=== PATIENT | male | born 1945 | race Caucasian/White ===

== ENCOUNTER 2020-01-21 11:50 | Emergency (ER) | payer OTHER, MEDICARE, SELFPAY ==
[2020-01-21 11:52] VITALS: BP 168/80; PULSE 114; RESP 18; TEMP 36.2; O2SAT 96; BMI 32.8
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
[2020-01-21 14:11] VITALS: BP 131/57; PULSE 84; RESP 16; O2SAT 99
== END 2020-01-21 14:12 | disposition home or self-care (01) ==
PROVIDERS: Emergency Provider Emergency Medicine
DX: S22.31XA Fracture of one rib, right side, initial encounter for closed fracture (principal); W19.XXXA Unspecified fall, initial encounter
CPT/HCPCS: 70450; 71101; 99282

== ENCOUNTER → 2021-09-09 | Outpatient (CLI) | payer MEDICARE, SELFPAY ==
[2021-09-09 10:35] LABS: Absolute Lymphocyte Count 2.76 X10^3/uL (0.83-4.51); Absolute Neutrophil Count 5.2 X10^3/uL (2.0-7.7); Basophil# 0.04 X10^3/uL; Basophil% 0.4 % (0-1); Eosinophil# 0.41 X10^3/uL; Eosinophils% 4.4 % (0-5); Hematocrit 39.1 % (40-54); Hemoglobin 12.9 g/dL (13.0-16.5); Lymphocyte # 2.76 X10^3/ul (0.83-4.51); Lymphocyte % 29.4 % (19-41); Mean Corpuscular Volume 87.9 fL (80-94); Mean Platelet Vol. 10.5 fl (6.2-12.0); Monocyte% 10.6 % (0-10); NRBC Flagged by Analyzer 0 % (0-5); Neutrophil # 5.15 X10^3/uL (2.7-7.7); Neutrophil % 54.8 % (47-70); Platelet Count 296 K/mm3 (150-450); RBC Distribution Width SD 42.2 fl (35.1-43.9); Red Blood Count 4.45 M/mm3 (4.6-6.2); White Blood Count 9.4 K/mm3 (4.4-11.0)
[2021-09-09 10:53] LABS: Hemoglobin A1c 6.9 % (3.8-5.6)
[2021-09-09 11:13] LABS: ALB/GLOB Ratio 1.3 RATIO (0.9-2.4); AST(SGOT) 31 U/L (15-37); Alanine Aminotransfer ALT/SGPT 36 U/L (16-61); Albumin, Serum 4.6 g/dL (3.2-5.0); Alkaline Phosphatase 69 U/L (45-117); Anion Gap 10 (5-15); BUN 21 mg/dL (7-18); BUN/Creat Ratio 21.8 RATIO (10-20); CPK Total, Creatine Kinase 191 U/L (39-308); Calcium,Total 9.6 mg/dL (8.5-10.1); Chloride 100 mmol/L (98-107); Cholesterol 139 mg/dL (200); Creatinine, Serum 0.96 mg/dL (0.70-1.30); EST Glomerular Filtration Rate 81 mL/min (>60); Est Glom Filt Rate - Afr Amer 98 mL/min (>60); Ferritin 92 ng/mL (26-388); Globulin 3.6 g/dL (2.2-4.2); Glucose 111 mg/dL (74-106); High Density Lipoprotein 35 mg/dL; Magnesium 1.9 mg/dL (1.6-2.6); Potassium 3.2 mmol/L (3.5-5.1); Protein, Total 8.2 g/dL (6.4-8.2); Sodium Level 136 mmol/L (136-145); T4 Free Direct 0.91 ng/dL (0.76-1.46); Thyroid Stim Hormone (TSH) 2.06 uIU/mL (0.358-3.74); Triglycerides 253 mg/dL; Very Low Density Lipoprotein 51 mg/dL (5-40)
[2021-09-09 11:14] LABS: Microalbumin,Random Urine 17.3 mg/L (NO RANGE EST.); Microalbumin:Creatinine Ratio 12.5 mg/g CRE (<30 mg/g CRE)
[2021-09-10 08:18] LABS: Thyroid Peroxidase AB < 8 IU/mL (0-34)
[2021-09-10 10:38] LABS: Iron 85 ug/dL (65-175); Iron Binding Capacity,Total 399 ug/dL (250-450); PERCENT IRON SATURATION 21.3 % (15.0-55.0)
[2021-09-10 11:12] LABS: Vitamin B12 284 pg/mL (211-911)
== END | disposition home or self-care (01) ==
PROVIDERS: PCP Family Medicine; Referring Provider Family Medicine; Visit Provider Family Medicine
DX: E11.65 Type 2 diabetes mellitus with hyperglycemia (principal); E04.1 Nontoxic single thyroid nodule; I10 Essential (primary) hypertension; R25.2 Cramp and spasm
CPT/HCPCS: 36415; 80053; 80061; 82043; 82550; 82570; 82607; 82728; 83036; 83540; 83550; 83735; 84439; 84443; 85025; 86376

== ENCOUNTER → 2021-09-18 | Outpatient (CLI) | payer MEDICARE, SELFPAY ==
--- NOTE | 2021-09-18 14:23 | US_ITS ---
STUDY: THYROID ULTRASOUND REASON FOR EXAM: Male, 75 years old. THYROID NODULE TECHNIQUE: Ultrasound evaluation of the thyroid was performed with real-time and static riojas-scale imaging. COMPARISON: None. FINDINGS: RIGHT LOBE: The right lobe of the thyroid gland measures 4.8 x 1.6 x 2.0 cm. There is a homogeneous echotexture. There is a mid pole complex cyst measuring 15 x 14 x 10 mm. LEFT LOBE: The left lobe of the thyroid gland measures 4.4 x 1.9 x 2.3 cm. There is a homogeneous echotexture. Vascular solid mass in the midpole region measuring 2.2 x 1.5 x 1.7 cm with another complex nodule in the mid to lower pole region measuring 2.1 x 0.9 x 0.4 cm ISTHMUS: The isthmus measures 5 mm. The regional lymph nodes are normal. US/Thyroid IMPRESSION: Bilateral thyroid nodules as above. Hypervascular solid nodule in the left thyroid lobe could be ultrasound-guided FNA biopsy target Electronically Signed: Anastacio Chowdhury DO at 23:40 EDT ,
== END | disposition home or self-care (01) ==
PROVIDERS: PCP Family Medicine; Referring Provider Family Medicine; Visit Provider Family Medicine
DX: E04.1 Nontoxic single thyroid nodule (principal)
CPT/HCPCS: 76536

== ENCOUNTER → 2021-10-06 | Outpatient (CLI) | payer MEDICARE, SELFPAY | END | disposition home or self-care (01) | LOC: MFPLAB 09:51 | PROVIDERS: PCP Family Medicine; Referring Provider Family Medicine; Visit Provider Family Medicine | DX: E87.6 Hypokalemia (principal); R25.2 Cramp and spasm | CPT/HCPCS: 36415; 80048 ==

== ENCOUNTER → 2021-10-08 | Outpatient (CLI) | payer MEDICARE, SELFPAY ==
[2021-10-08 10:40] LABS: Anion Gap 7 (5-15); BUN 29 mg/dL (7-18); BUN/Creat Ratio 25.2 RATIO (10-20); Calcium,Total 9.2 mg/dL (8.5-10.1); Chloride 100 mmol/L (98-107); Cholesterol 138 mg/dL (200); Creatinine, Serum 1.15 mg/dL (0.70-1.30); EST Glomerular Filtration Rate 66 mL/min (>60); Est Glom Filt Rate - Afr Amer 80 mL/min (>60); Glucose 125 mg/dL (74-106); High Density Lipoprotein 37 mg/dL; Potassium 3.4 mmol/L (3.5-5.1); Sodium Level 136 mmol/L (136-145); Triglycerides 233 mg/dL; Very Low Density Lipoprotein 47 mg/dL (5-40)
== END | disposition home or self-care (01) ==
LOC: MFPLAB 08:34
PROVIDERS: PCP Family Medicine; Referring Provider Family Medicine; Visit Provider Family Medicine
DX: E87.6 Hypokalemia (principal); E11.65 Type 2 diabetes mellitus with hyperglycemia
CPT/HCPCS: 36415; 80048; 80061

== ENCOUNTER → 2022-04-06 | Outpatient (CLI) | payer MEDICARE, SELFPAY ==
[2022-04-06 12:35] LABS: Absolute Lymphocyte Count 2.48 X10^3/uL (0.83-4.51); Absolute Neutrophil Count 7.1 X10^3/uL (2.0-7.7); Basophil# 0.08 X10^3/uL; Basophil% 0.7 % (0-1); Eosinophil# 0.39 X10^3/uL; Eosinophils% 3.5 % (0-5); Hematocrit 38.5 % (40-54); Hemoglobin 13.1 g/dL (13.0-16.5); Lymphocyte # 2.48 X10^3/ul (0.83-4.51); Lymphocyte % 22.3 % (19-41); Mean Corpuscular Hgb 30.4 pg (27.0-32.0); Mean Corpuscular Volume 89.3 fL (80-94); Mean Platelet Vol. 11.4 fl (6.2-12.0); Monocyte# 1.06 X10^3/uL; Monocyte% 9.5 % (0-10); NRBC Flagged by Analyzer 0 % (0-5); Neutrophil # 7.06 X10^3/uL (2.7-7.7); Neutrophil % 63.7 % (47-70); Platelet Count 300 K/mm3 (150-450); RBC Distribution Width CV 13.1 % (11.6-14.6); RBC Distribution Width SD 43.3 fl (35.1-43.9); Red Blood Count 4.31 M/mm3 (4.6-6.2); White Blood Count 11.1 K/mm3 (4.4-11.0)
[2022-04-06 12:50] LABS: ALB/GLOB Ratio 1.2 RATIO (0.9-2.4); AST(SGOT) 20 U/L (15-37); Alanine Aminotransfer ALT/SGPT 29 U/L (16-61); Albumin, Serum 4.3 g/dL (3.2-5.0); Alkaline Phosphatase 63 U/L (45-117); Anion Gap 10 (5-15); BUN 24 mg/dL (7-18); BUN/Creat Ratio 19.5 RATIO (10-20); Calcium,Total 9.6 mg/dL (8.5-10.1); Chloride 98 mmol/L (98-107); Cholesterol 139 mg/dL (200); Creatinine, Serum 1.23 mg/dL (0.70-1.30); EST Glomerular Filtration Rate 61 mL/min (>60); Est Glom Filt Rate - Afr Amer 74 mL/min (>60); Globulin 3.5 g/dL (2.2-4.2); Glucose 123 mg/dL (74-106); High Density Lipoprotein 34 mg/dL; Potassium 3.8 mmol/L (3.5-5.1); Protein, Total 7.8 g/dL (6.4-8.2); Sodium Level 136 mmol/L (136-145); Triglycerides 242 mg/dL; Very Low Density Lipoprotein 48 mg/dL (5-40)
[2022-04-06 12:53] LABS: Hemoglobin A1c 7.1 % (3.8-5.6)
[2022-04-06 13:14] LABS: Microalbumin,Random Urine 33.7 mg/L (NO RANGE EST.); Microalbumin:Creatinine Ratio 13.2 mg/g CRE (<30 mg/g CRE)
== END | disposition home or self-care (01) ==
LOC: MFPLAB 10:21
PROVIDERS: PCP Family Medicine; Referring Provider Family Medicine; Visit Provider Family Medicine
DX: E11.65 Type 2 diabetes mellitus with hyperglycemia (principal); E11.69 Type 2 diabetes mellitus with other specified complication
CPT/HCPCS: 36415; 80053; 80061; 82043; 82570; 83036; 85025

== ENCOUNTER → 2022-07-15 | Outpatient (CLI) | payer MEDICARE, SELFPAY ==
[2022-07-15 10:27] LABS: Hemoglobin A1c 6.7 % (3.8-5.6)
[2022-07-15 10:36] LABS: ALB/GLOB Ratio 1.1 RATIO (0.9-2.4); AST(SGOT) 29 U/L (15-37); Alanine Aminotransfer ALT/SGPT 33 U/L (16-61); Albumin, Serum 4.2 g/dL (3.2-5.0); Alkaline Phosphatase 60 U/L (45-117); Anion Gap 5 (5-15); BUN 21 mg/dL (7-18); BUN/Creat Ratio 21.8 RATIO (10-20); Calcium,Total 9.2 mg/dL (8.5-10.1); Chloride 98 mmol/L (98-107); Cholesterol 134 mg/dL (200); Creatinine, Serum 0.96 mg/dL (0.70-1.30); EST Glomerular Filtration Rate 81 mL/min (>60); Est Glom Filt Rate - Afr Amer 98 mL/min (>60); Globulin 3.9 g/dL (2.2-4.2); Glucose 76 mg/dL (74-106); High Density Lipoprotein 36 mg/dL; Potassium 3.1 mmol/L (3.5-5.1); Protein, Total 8.1 g/dL (6.4-8.2); Sodium Level 135 mmol/L (136-145); Triglycerides 208 mg/dL; Very Low Density Lipoprotein 42 mg/dL (5-40)
== END | disposition home or self-care (01) ==
LOC: MTLAB 07:28
PROVIDERS: PCP Family Medicine; Referring Provider Nurse Practitioner Family; Visit Provider Nurse Practitioner Family
DX: E11.59 Type 2 diabetes mellitus with other circulatory complications (principal)
CPT/HCPCS: 36415; 80053; 80061; 83036

== ENCOUNTER → 2022-07-28 | Outpatient (CLI) | payer MEDICARE, SELFPAY ==
[2022-07-28 11:10] LABS: ALB/GLOB Ratio 1.1 RATIO (0.9-2.4); AST(SGOT) 28 U/L (15-37); Alanine Aminotransfer ALT/SGPT 34 U/L (16-61); Albumin, Serum 4.2 g/dL (3.2-5.0); Alkaline Phosphatase 66 U/L (45-117); Anion Gap 5 (5-15); BUN 23 mg/dL (7-18); BUN/Creat Ratio 21.7 RATIO (10-20); Calcium,Total 9.5 mg/dL (8.5-10.1); Chloride 100 mmol/L (98-107); Creatinine, Serum 1.06 mg/dL (0.70-1.30); EST Glomerular Filtration Rate 73 mL/min (>60); Est Glom Filt Rate - Afr Amer 88 mL/min (>60); Globulin 3.9 g/dL (2.2-4.2); Glucose 111 mg/dL (74-106); PSA,Total - Annual Screen 6.85 ng/mL (0.00-4.00); Potassium 3.8 mmol/L (3.5-5.1); Protein, Total 8.1 g/dL (6.4-8.2); Sodium Level 133 mmol/L (136-145)
== END | disposition home or self-care (01) ==
LOC: MFPLAB 08:03
PROVIDERS: PCP Family Medicine; Visit Provider Nurse Practitioner Family
DX: E87.6 Hypokalemia (principal); Z12.5 Encounter for screening for malignant neoplasm of prostate
CPT/HCPCS: 36415; 80053; 84153; G0103

== ENCOUNTER → 2022-08-17 | Outpatient (CLI) | payer MEDICARE, SELFPAY ==
[2022-08-17 11:13] LABS: AST(SGOT) 22 U/L (15-37); Alanine Aminotransfer ALT/SGPT 31 U/L (16-61); Alkaline Phosphatase 74 U/L (45-117); Anion Gap 8 (5-15); BUN 15 mg/dL (7-18); BUN/Creat Ratio 16.2 RATIO (10-20); Calcium,Total 9.2 mg/dL (8.5-10.1); Chloride 100 mmol/L (98-107); Creatinine, Serum 0.92 mg/dL (0.70-1.30); EST Glomerular Filtration Rate 85 mL/min (>60); Est Glom Filt Rate - Afr Amer 103 mL/min (>60); Globulin 3.9 g/dL (2.2-4.2); Glucose 157 mg/dL (74-106); Potassium 3.5 mmol/L (3.5-5.1); Protein, Total 7.9 g/dL (6.4-8.2); Sodium Level 135 mmol/L (136-145)
== END | disposition home or self-care (01) ==
LOC: MTLAB 09:23
PROVIDERS: PCP Family Medicine; Referring Provider Nurse Practitioner Family; Visit Provider Nurse Practitioner Family
DX: R79.9 Abnormal finding of blood chemistry, unspecified (principal)
CPT/HCPCS: 36415; 80053

== ENCOUNTER → 2022-11-18 | Outpatient (CLI) | payer MEDICARE, SELFPAY ==
[2022-11-18 12:11] LABS: Absolute Lymphocyte Count 2.79 X10^3/uL (0.83-4.51); Absolute Neutrophil Count 4.8 X10^3/uL (2.0-7.7); Basophil# 0.08 X10^3/uL; Basophil% 0.9 % (0-1); Eosinophil# 0.43 X10^3/uL; Eosinophils% 4.7 % (0-5); Hematocrit 39.4 % (40-54); Hemoglobin 12.7 g/dL (13.0-16.5); Lymphocyte # 2.79 X10^3/ul (0.83-4.51); Lymphocyte % 30.8 % (19-41); Mean Corp Hgb Conc 32.2 g/dL (32-36); Mean Corpuscular Hgb 28.9 pg (27.0-32.0); Mean Corpuscular Volume 89.5 fL (80-94); Mean Platelet Vol. 11.1 fl (6.2-12.0); Monocyte# 0.91 X10^3/uL; NRBC Flagged by Analyzer 0 % (0-5); Neutrophil # 4.83 X10^3/uL (2.7-7.7); Neutrophil % 53.3 % (47-70); Platelet Count 296 K/mm3 (150-450); RBC Distribution Width CV 12.9 % (11.6-14.6); RBC Distribution Width SD 42.5 fl (35.1-43.9); White Blood Count 9.1 K/mm3 (4.4-11.0)
[2022-11-18 12:53] LABS: Hemoglobin A1c 6.8 % (3.8-5.6)
[2022-11-18 13:06] LABS: AST(SGOT) 24 U/L (15-37); Alanine Aminotransfer ALT/SGPT 27 U/L (16-61); Albumin, Serum 3.9 g/dL (3.2-5.0); Alkaline Phosphatase 70 U/L (45-117); Anion Gap 8 (5-15); BUN 22 mg/dL (7-18); BUN/Creat Ratio 22.4 RATIO (10-20); Calcium,Total 9.5 mg/dL (8.5-10.1); Chloride 101 mmol/L (98-107); Cholesterol 112 mg/dL (200); Creatinine, Serum 0.98 mg/dL (0.70-1.30); EST Glomerular Filtration Rate 79 mL/min (>60); Est Glom Filt Rate - Afr Amer 95 mL/min (>60); Globulin 3.9 g/dL (2.2-4.2); Glucose 88 mg/dL (74-106); High Density Lipoprotein 39 mg/dL; Potassium 3.7 mmol/L (3.5-5.1); Protein, Total 7.8 g/dL (6.4-8.2); Sodium Level 136 mmol/L (136-145); T4 Free Direct 0.95 ng/dL (0.76-1.46); Thyroid Stim Hormone (TSH) 1.85 uIU/mL (0.358-3.74); Triglycerides 203 mg/dL; Very Low Density Lipoprotein 41 mg/dL (5-40)
[2022-11-18 13:19] LABS: Microalbumin,Random Urine 13.1 mg/L (NO RANGE EST.); Microalbumin:Creatinine Ratio 7.7 mg/g CRE (<30 mg/g CRE)
[2022-11-19 15:31] LABS: Ferritin 69 ng/mL (26-388); Iron 60 ug/dL (65-175); Iron Binding Capacity,Total 388 ug/dL (250-450); PERCENT IRON SATURATION 15.5 % (15.0-55.0)
[2022-11-19 16:27] LABS: Vitamin B12 281 pg/mL (211-911)
== END | disposition home or self-care (01) ==
LOC: MFPLAB 10:08
PROVIDERS: PCP Family Medicine; Visit Provider Family Medicine
DX: E11.65 Type 2 diabetes mellitus with hyperglycemia (principal); E04.1 Nontoxic single thyroid nodule; D64.9 Anemia, unspecified
CPT/HCPCS: 36415; 80053; 80061; 82043; 82570; 82607; 82728; 83036; 83540; 83550; 84439; 84443; 85025

== ENCOUNTER → 2022-11-30 | Outpatient (CLI) | payer MEDICARE, SELFPAY | END | disposition home or self-care (01) | LOC: LAB 11:44 | PROVIDERS: PCP Family Medicine; Referring Provider Urology; Visit Provider Urology | DX: R97.20 Elevated prostate specific antigen [PSA] (principal) | CPT/HCPCS: 36415; 84153 ==

== ENCOUNTER → 2022-12-08 | Outpatient (CLI) | payer MEDICARE, SELFPAY ==
--- NOTE | 2022-12-08 08:35 | MRI_ITS ---
STUDY: MR PELVIS WITH AND WITHOUT CONTRAST (PROSTATE) REASON FOR EXAM: Male, 77 years old. Elevated PSA TECHNIQUE: Standardized multiparametric prostate MRI with T1, T2, DWI/ADC sequences were obtained in 3 orthogonal planes, and dynamic contrast enhancement sequences. 13 ml of clariscan contrast material was administered intravenously for the contrast portion of the examination. COMPARISON: None. FINDINGS: The prostate volume measures 76 mm3. The contours of the prostate gland are lobulated. There is mass effect on the bladder base. The transition zone is heterogenous. PI-RADS DWI score 2 - Hypointense within a BPH nodule on ADC. PI-RADS T2W score 3 - Heterogeneous signal intensity with obscured margins. Contrast enhancement no early or contemporaneous enhancement; or diffuse multifocal enhancement NOT corresponding to a focal finding on T2W and/or DWI or focal ehancement responding to a lesion demonstrating features of BPH onT2WI (including features of extruded BPH in the PZ). The peripheral zone is homogenous. PI-RADS DWI score 2 - Linear/wedge shaped hypointense on ADC and/or linear/wedge shaped hyperintense on high b-value DWI. PI-RADS T2W score 2 - Linear, wedge-shaped, or diffuse mild hypointensity, usually with indistinct margin. Contrast enhancement no early or contemporaneous enhancement; or diffuse multifocal enhancement NOT corresponding to a focal finding on T2W and/or DWI or focal enhancement responding to a lesion demonstrating features of BPH onT2WI (including features of extruded BPH in the PZ). The seminal vesicles demonstrate normal margins and T2 signal pattern. No mass lesion or invasion depicted. The rectoprostatic angles are normal. Urinary bladder is normal without wall thickening. The vascular structures of the are normal. The visualized hollow viscus structures are normal. No bone marrow edema or mass lesion depicted. MRI/Pelvis W/WO Contrast IMPRESSION: 1. PIRADS v2.1 2019 -- 2 - Low (clinically significant cancer is unlikely). 2. Prostatomegaly with multiple transitional zone nodules, which could obscure clinically significant lesion. Electronically Signed: Daquan Wilcox (Brooks), at 15:43 EDT ,
== END | disposition home or self-care (01) ==
PROVIDERS: PCP Family Medicine; Referring Provider Urology; Visit Provider Urology
DX: R97.20 Elevated prostate specific antigen [PSA] (principal)
CPT/HCPCS: 72197; A9575

== ENCOUNTER 2023-01-12 14:40 | Emergency (ER) | payer MEDICARE, SELFPAY ==
[2023-01-12] VITALS (9 sets, daily range): BP systolic 131–144; BP diastolic 56–76; PULSE 65–98; RESP 16–22; TEMP 36.1; O2SAT 91–92; BMI 33.9
--- NOTE | 2023-01-12 15:01 | NURSING ---
NO OLD EKG
[2023-01-12] MEDS: Albuterol 2.5 MG/3 ML VIAL.NEB. INHALATION ×2 (15:04→17:24)
[2023-01-12] MEDS: Ipratropium/Albuterol Sulfate 3 ML AMPUL.NEB INHALATION (15:04)
--- NOTE | 2023-01-12 15:16 | EDS_ITS ---
HPI History of Present Illness Chief Complaint: Shortness of Breath Informant: patient and spouse/S.O. Narrative Narrative: Presents with dyspnea and wheezing. This patient does have a history of COPD. He has never had heart disease congestive heart failure stents or ID. Patient states that this year he has been coughing a little bit more than is his normal. But he generally has been able to walk about 75 yards at a time. He notices over the last 2 hours 3 days he has had more coughing. He brings up a little bit of brown sputum but is not really different than normal. No blood has been seen. He has been wheezing. Yesterday was the first time he used his nebulizer a long time. It sounds like he likely has albuterol for it. He states it helped a lot and he did feel much better. But today its not as effective. He notices wheezing and rattling throughout the night. Last night he had a little bit of chest discomfort in his left chest but was coughing a bit. He has no chest pain now. He has never had a PE or DVT. He has no leg pain. He always has trace leg swelling but that is chronic. He was convinced by his to come in as he really did not want to. He is not on oxygen and never has been. He has no fevers or chills and does not feel systemically ill. [facility] Home Medications albuterol sulfate 2.5 mg/3 mL (0.083 %) solution for nebulization 2.5 mg (3 mL) inhalation Q4H PRN #25 vials 01/12/23 [Rx Last Taken Unknown] ipratropium bromide 0.02 % solution for inhalation 2.5 ml inhalation Q6H PRN shortness of breath or wheezing #62.5 mL 01/12/23 [Rx Last Taken Unknown] levofloxacin 500 mg tablet 500 mg PO DAILY #7 tabs 01/12/23 [Rx Last Taken Unknown] prednisone 20 mg tablet 60 mg (3 x 20 mg) PO DAILY #15 TABLETS 01/12/23 [Rx Last Taken Unknown] Allergy/AdvReac Type Severity Reaction Status Date / Time lisinopril Allergy NEEDS Verified 01/21/20 11:54 FOLLOW-UP Social History Smoking Status: Former smoker ROS ROS ED ROS Narrative A complete review of systems was performed and is negative except as documented in the history of present illness. Some specific details below. Constitutional: No recent fevers or chills. Malaise. EYE: No discharge, visual complaints, or pain. ENT: No difficulty swallowing. No swelling. No pain. No reflux symptoms. CV: Chest pain at this time. Had a little bit of soreness yesterday in the anterior left area. No palpitations. No syncope or presyncope. Respiratory: See history of present illness. GI: No abdominal pain. No nausea vomiting diarrhea. No blood in stool. : No frequency dysuria or hematuria. Musculoskeletal: No recent trauma. No pains. No swelling. Skin: No rash. Nondiaphoretic. Neuro: No weakness or numbness. Endocrine: No polyuria or polydipsia. EXAM Physical Exam Narrative Exam Narrative: CONSTITUTIONAL: Patient is nontoxic in appearance. The patient looks comfortable. Work of breathing looks normal. HEENT: No notable trauma. Mucous membranes moist. No sinus tenderness. No indication of pain with swallowing. EYES: No conjunctival injection. No proptosis. NECK:No JVD. No stridor. CARDIOVASCULAR: Regular rate. Regular rhythm. No notable murmur. No JVD. RESPIRATORY: No respiratory distress. But I can hear wheezing when I walk in the room. They are diffuse. He also has some dry crackles throughout. Breath sounds are equal though. No subcu air. No tenderness. Saturations are borderline at about 91% on room air on the monitor. GASTROINTESTINAL: Not distended. Bowel sounds are normal. No tenderness. No guarding. No rebound. No palpable mass. No bruit is heard. GENITOURINARY: No tenderness over the bladder. No CVA tenderness. MUSCULOSKELETAL: Atraumatic. Equal peripheral edema. No cord. No tenderness along the deep venous system. No asymmetry. No distended veins. NEUROLOGICAL: Patient is alert and appropriate. No focal deficit noted. SKIN: No noted rashes. No diaphoresis. PSYCHIATRIC: Patient is calm. Mood is appropriate. Const Vital Signs: 01/12/23 14:41 01/12/23 15:12 01/12/23 17:25 Temperature 96.9 F L Temperature Source Temporal Pulse Rate 98 65 90 Respiratory Rate 22 H 18 16 Respiratory Effort Respiratory Depth Respiratory Pattern Normal Blood Pressure 144/76 H Blood Pressure Mean 98 Pulse Ox 91 Oxygen Delivery Method Room Air 01/12/23 14:56 01/12/23 14:40 01/12/23 15:40 Temperature Temperature Source Pulse Rate Respiratory Rate 20 H 18 Respiratory Effort Respiratory Depth Respiratory Pattern Blood Pressure Blood Pressure Mean Pulse Ox Oxygen Delivery Method Room Air 01/12/23 16:40 01/12/23 17:30 01/12/23 17:00 Temperature Temperature Source Pulse Rate Respiratory Rate 18 20 H Respiratory Effort Normal Non-Labored Respiratory Depth Normal Respiratory Pattern Normal Blood Pressure Blood Pressure Mean Pulse Ox Oxygen Delivery Method Room Air MDM MDM MDM Narrative Medical decision making narrative: My independent interpretation of his x-ray does not show a left hemidiaphragm elevation increased markings at both bases possibly infiltrative. This is similar to final reading but they also suspect there could be a cavitary lesion on the right. We will add a CT for this. CBC shows elevated white count of 15.9. Just mild anemia. Platelets are normal. Patient's electrolytes show no marked abnormalities. Patient's troponin is negative. Patient's BNP is normal. Patient was rechecked. He is feeling a lot better. He actually walked all the way down to the heart and back without any problems. He went to the bathroom. He states this is something he could have done before he came in. I listen to his lungs again. He still has some wheezing but is better. We will get him another breathing treatment here. My independent her potation the CT of his chest does not show any PE. I do not see cavitary lesions. Final reading was also reviewed as below. With the pneumonitis and white count we will treat with antibiotics. I will give short course of steroids. We will write for some albuterol and Atrovent for home use. He does have a nebulizer. Lab Data Attestation: I reviewed the patient's lab results. Labs: Laboratory Results - last 24 hr 01/12/23 15:15 WBC 15.9 H RBC 4.18 L Hgb 12.3 L Hct 36.7 L MCV 87.8 MCH 29.4 MCHC 33.5 RDW Std Deviation 42.6 RDW Coeff of Khadra 13.2 Plt Count 253 MPV 10.2 Immature Gran % (Auto) 0.400 Neut % (Auto) 74.9 H Lymph % (Auto) 12.2 L [place] % (Auto) 10.2 H Eos % (Auto) 1.9 Baso % (Auto) 0.4 Absolute Neuts (auto) 11.9 H Absolute Lymphs (auto) 1.95 Nucleated RBC % 0 Differential Comment SCANNED Diff Path Review May foll Sodium 135 L Potassium 3.4 L Chloride 101 Carbon Dioxide 29.0 Anion Gap 5 BUN 30 H Creatinine 1.16 Estim Creat Clear Calc 47.86 Est GFR (MDRD) Af Amer 79 Est GFR (MDRD) Non-Af 65 BUN/Creatinine Ratio 25.9 H Glucose 99 Calcium 9.0 Troponin I High Sens 8 B-Natriuretic Peptide 7.1 Radiography Diagnostic Testing: Clinical Impression(s) from Imaging Studies Chest X-Ray 01/12/23 15:35 IMPRESSION: Bilateral basilar atelectasis versus infiltrates. Question cavitary lesion in the right lung base, possible right middle lobe, recommend follow-up with CT chest for further characterization. Electronically Signed: Angela Krishna MD at 16:49 EDT , Chest CTA 01/12/23 17:30 IMPRESSION: Negative CTA chest examination, without a demonstrated pulmonary embolism or arterial dissection. Focal aneurysmal dilatation at the level of aortic arch measuring up to 3.2 cm. Bilateral atelectasis in the lung bases with superimposed multifocal pneumonitis. Electronically Signed: Angela Krishna MD at 18:02 EDT , Discharge Plan Triage Chief Complaint: Shortness of Breath ED Provider: Darius Petersen Dx/Rx/DC Orders Clinical Impression: Leukocytosis, COPD exacerbation, Pneumonitis Instructions: ED COPD Flare Prescriptions: New albuterol sulfate 2.5 mg /3 mL (0.083 %) solution for nebulization 2.5 mg inhalation Q4H PRN Qty: 25 0RF Rx Instructions: Use q4 hours and PRN for wheezing levofloxacin [levofloxacin] 500 mg tablet 500 mg PO DAILY Qty: 7 0RF prednisone 20 mg tablet 60 mg PO DAILY Qty: 15 0RF ipratropium bromide 0.02 % solution 2.5 ml inhalation Q6H PRN (Reason: shortness of breath or wheezing) Qty: 62.5 0RF Primary Care Provider: Aj Mata Referrals: Aj Mata MD [Primary Care Provider] - 3-5 Days if not improving Disposition Disposition: Home, Self Care
[2023-01-12 15:23] LABS: Absolute Lymphocyte Count 1.95 X10^3/uL (0.83-4.51); Absolute Neutrophil Count 11.9 X10^3/uL (2.0-7.7); Basophil# 0.07 X10^3/uL; Basophil% 0.4 % (0-1); Eosinophils% 1.9 % (0-5); Hematocrit 36.7 % (40-54); Hemoglobin 12.3 g/dL (13.0-16.5); Lymphocyte # 1.95 X10^3/ul (0.83-4.51); Lymphocyte % 12.2 % (19-41); Mean Corp Hgb Conc 33.5 g/dL (32-36); Mean Corpuscular Hgb 29.4 pg (27.0-32.0); Mean Corpuscular Volume 87.8 fL (80-94); Mean Platelet Vol. 10.2 fl (6.2-12.0); Monocyte# 1.62 X10^3/uL; Monocyte% 10.2 % (0-10); NRBC Flagged by Analyzer 0 % (0-5); Neutrophil # 11.93 X10^3/uL (2.7-7.7); Neutrophil % 74.9 % (47-70); POSITIVE DIFFERENTIAL YES; Platelet Count 253 K/mm3 (150-450); RBC Distribution Width CV 13.2 % (11.6-14.6); RBC Distribution Width SD 42.6 fl (35.1-43.9); Red Blood Count 4.18 M/mm3 (4.6-6.2); White Blood Count 15.9 K/mm3 (4.4-11.0)
[2023-01-12 15:27] LABS: Differential Indicated SCAN CRITERIA MET
[2023-01-12 15:29] LABS: Differential Comment SCANNED
[2023-01-12] MEDS: MethylPREDNISolone 125 MG/2 ML Vial IV (15:33)
--- NOTE | 2023-01-12 15:35 | RAD_ITS ---
STUDY: X-RAY CHEST REASON FOR EXAM: Male, 77 years old. cough TECHNIQUE: PA and lateral views of the chest. COMPARISON: None. FINDINGS: Lungs are underexpanded with bilateral basilar opacities most compatible with atelectasis versus infiltrate. More focal density with possible cavitary component in the right lung bases not excluded. There is no demonstrated pleural abnormality. Normal size heart. Normal mediastinum and xochilt. Normal visualized pulmonary arteries. There is atherosclerotic calcification of the aortic arch with tortuosity. There are diffuse degenerative changes of the visualized thoracic spine. There is degenerative osteoarthritis of the bilateral shoulders. There is no demonstrated abnormality of the visualized soft tissue structures of the upper abdomen. RAD/Chest PA and Lateral IMPRESSION: Bilateral basilar atelectasis versus infiltrates. Question cavitary lesion in the right lung base, possible right middle lobe, recommend follow-up with CT chest for further characterization. Electronically Signed: Angela Krishna MD at 16:49 EDT ,
[2023-01-12 15:47] LABS: BNP,B-Type NATRIURETIC PEPTIDE 7.1 pg/mL (0-100)
[2023-01-12 15:55] LABS: Anion Gap 5 (5-15); BUN 30 mg/dL (7-18); BUN/Creat Ratio 25.9 RATIO (10-20); Chloride 101 mmol/L (98-107); Creatinine, Serum 1.16 mg/dL (0.70-1.30); EST Glomerular Filtration Rate 65 mL/min (>60); Est Glom Filt Rate - Afr Amer 79 mL/min (>60); Estimated Creatinine Clearance 47.86 ml/min; Glucose 99 mg/dL (74-106); Potassium 3.4 mmol/L (3.5-5.1); Sodium Level 135 mmol/L (136-145); Troponin-I HS 8 pg/mL (3.0-78.0)
--- NOTE | 2023-01-12 17:30 | CT_ITS ---
STUDY: CTA CHEST REASON FOR EXAM: Male, 77 years old. pe RADIATION DOSAGE (If Supplied By Facility): CTDIvol = ( 14.39 ) mGy, DLP = ( 539.65 ) mGycm TECHNIQUE: The examination was performed with the intravenous administration of 100ML ISOVUE 370. Post-processing of the angiographic images was performed, with multiplanar reformation and 3D reconstruction. Individualized dose optimization techniques were used for this CT. COMPARISON: None. FINDINGS: Normal enhancement of the main pulmonary artery and right and left pulmonary arteries. Normal enhancement of the bilateral peripheral pulmonary arteries. There is no demonstrated pulmonary embolism. Calcified atherosclerotic disease of aorta with focal aneurysmal dilatation at the level of aortic arch up to 3.2 cm There is no demonstrated aortic dissection. Mild cardiomegaly with coronary artery calcifications. Normal mediastinum. Normal hilar regions. Normal visualized trachea and bronchi. The lungs are underexpanded with vascular crowding. There is bilateral basilar atelectasis including the lingular lobe and bilateral lower lobes. Multiple foci of groundglass opacities within the lung bases suggests superimposed multifocal pneumonitis. Left lower lobe calcified granuloma measuring 6.4 mm. Normal pleura. Normal chest wall structures. There are degenerative changes of thoracic spine. Upper abdomen reveal mild hypertrophy of the bilateral adrenal glands, otherwise unremarkable. CT/CTA Chest W/WO Contrast IMPRESSION: Negative CTA chest examination, without a demonstrated pulmonary embolism or arterial dissection. Focal aneurysmal dilatation at the level of aortic arch measuring up to 3.2 cm. Bilateral atelectasis in the lung bases with superimposed multifocal pneumonitis. Electronically Signed: Angela Krishna MD at 18:02 EDT ,
[2023-01-13 11:19] LABS: Pathologist Review Reviewed
== END 2023-01-12 20:21 | disposition home or self-care (01) ==
PROVIDERS: Emergency Provider Emergency Medicine; PCP Family Medicine; Visit Provider Emergency Medicine
DX: D72.829 Elevated white blood cell count, unspecified (principal); J44.1 Chronic obstructive pulmonary disease with (acute) exacerbation; J18.9 Pneumonia, unspecified organism; Z87.891 Personal history of nicotine dependence
CPT/HCPCS: 71046; 71275; 80048; 83880; 84484; 85025; 93005; 94640; 96374; 99284; Q9967; A4216

== ENCOUNTER → 2023-03-17 | Outpatient (CLI) | payer MEDICARE, SELFPAY ==
[2023-03-17 10:11] LABS: Absolute Lymphocyte Count 2.14 X10^3/uL (0.83-4.51); Absolute Neutrophil Count 4.1 X10^3/uL (2.0-7.7); Basophil# 0.08 X10^3/uL; Basophil% 1.1 % (0-1); Eosinophil# 0.39 X10^3/uL; Eosinophils% 5.2 % (0-5); Hematocrit 38.8 % (40-54); Hemoglobin 12.7 g/dL (13.0-16.5); Lymphocyte # 2.14 X10^3/ul (0.83-4.51); Lymphocyte % 28.6 % (19-41); Mean Corp Hgb Conc 32.7 g/dL (32-36); Mean Corpuscular Hgb 29.1 pg (27.0-32.0); Mean Corpuscular Volume 88.8 fL (80-94); Mean Platelet Vol. 10.9 fl (6.2-12.0); Monocyte# 0.78 X10^3/uL; Monocyte% 10.4 % (0-10); NRBC Flagged by Analyzer 0 % (0-5); Neutrophil # 4.08 X10^3/uL (2.7-7.7); Neutrophil % 54.6 % (47-70); Platelet Count 294 K/mm3 (150-450); RBC Distribution Width CV 13.2 % (11.6-14.6); RBC Distribution Width SD 43.3 fl (35.1-43.9); Red Blood Count 4.37 M/mm3 (4.6-6.2); White Blood Count 7.5 K/mm3 (4.4-11.0)
[2023-03-17 11:00] LABS: ALB/GLOB Ratio 1.1 RATIO (0.9-2.4); AST(SGOT) 20 U/L (15-37); Alanine Aminotransfer ALT/SGPT 29 U/L (16-61); Alkaline Phosphatase 54 U/L (45-117); Anion Gap 10 (5-15); BUN 18 mg/dL (7-18); BUN/Creat Ratio 16.1 RATIO (10-20); Calcium,Total 9.1 mg/dL (8.5-10.1); Chloride 97 mmol/L (98-107); Cholesterol 100 mg/dL (200); Creatinine, Serum 1.12 mg/dL (0.70-1.30); EST Glomerular Filtration Rate 68 mL/min (>60); Est Glom Filt Rate - Afr Amer 82 mL/min (>60); Globulin 3.5 g/dL (2.2-4.2); Glucose 103 mg/dL (74-106); High Density Lipoprotein 39 mg/dL; Potassium 3.5 mmol/L (3.5-5.1); Protein, Total 7.5 g/dL (6.4-8.2); Sodium Level 136 mmol/L (136-145); Triglycerides 143 mg/dL; Very Low Density Lipoprotein 29 mg/dL (5-40)
== END | disposition home or self-care (01) ==
LOC: MTLAB 09:20
PROVIDERS: PCP Family Medicine; Referring Provider Family Medicine; Visit Provider Family Medicine
DX: E11.65 Type 2 diabetes mellitus with hyperglycemia (principal)
CPT/HCPCS: 36415; 80053; 80061; 83036; 85025

== ENCOUNTER → 2023-05-31 | Outpatient (CLI) | payer MEDICARE, SELFPAY ==
--- OUTSIDE RECORDS SUMMARY | 2023-05-31 09:42 | XMS RPT_ITS | CCD ---
Author Name Unknown Address [address] [place] [address] Organization [facility] Care Team Providers Care Medical Management Specialist Name Role Phone RICO, SOWMYA C Unavailable Unavailable RICO, SOWMYA C Unavailable Unavailable RICO, SOWMYA C Unavailable Unavailable NO, DOCTOR ON Unavailable Unavailable NO, DOCTOR ON Unavailable Unavailable RICO, SOWMYA C Unavailable Unavailable RICO, SOWMYA C Unavailable Unavailable NO, DOCTOR ON Unavailable Unavailable RICO, SOWMYA C Unavailable Unavailable NO, DOCTOR ON Unavailable Unavailable Wero Porter Primary Care Provider [phone] Wero Porter MD Primary Care Provider WERO PORTER Primary Care Unavailable Allergies Allergy Classification Reported Allergen(s) Allergy Type Date of Onset Reaction(s) Facility (2 sources) lisinopril; Translations: [LISINOPRIL] Drug Allergy 02-11-2010 [facility] Repository (2 sources) Lisinopril Drug Allergy 02-11-2010 [facility] Work Phone: Medications Current Medications Medication Drug Class(es) Dates Sig (Normalized) Sig (Original) amoxicillin 875 mg / clavulanate 125 mg oral tablet (1 source) Penicillin-class Antibacterial Start: 01-14-2023 End: 01-19-2023 take 1 tablet by mouth twice daily amoxicillin-clav ulanic acid (AUGMENTIN) 875-125 mg per tablet Indications: Bacterial pneumonia Take 1 tablet by mouth two times a day for 5 days. 10 tablet 0 01/14/2023 01/19/2023 Active Completed/Discontinued Medications Medication Drug Class(es) Dates Sig (Normalized) Sig (Original) [id number] 200 actuat albuterol 0.09 mg/actuat metered dose inhaler (2 sources) beta2-Adrenergic Agonist Start: 07-06-2010 take 2 puff(s) by inhalation every four hours as needed albuterol HFA 90 mcg/Actuation INHALATION inhaler Indications: Wheezing , Acute bronchitis Inhale 2 Puffs as instructed every 4 hours as needed. 1 Inhaler 11 07/06/2010 Active Problems Problem Classification Problem Date Documented Da te Episodic/Chronic Diabetes mellitus with complications (2 sources) Type 2 diabetes mellitus; Translations: [Type II or unspecified type diabetes mellitus without mention of complication, uncontrolled] Onset: 08-10-2007 04-13-2021 Chronic Disorders of lipid metabolism (2 sources) Mixed hyperlipidemia; Translations: [Mixed hyperlipidemia] Onset: 08-10-2007 2009 Chronic Essential hypertension (2 sources) Benign essential hypertension; Translations: [Essential (primary) hypertension] Onset: 08-10-2007 2009 Chronic Pneumonia (except that caused by tuberculosis or sexually transmitted disease) (1 source) Bacterial pneumonia; Translations: [Unspecified bacterial pneumonia] 01-14-2023 Episodic Thyroid disorders (1 source) Multinodular goiter; Translations: [Nontoxic multinodular goiter] Chronic Results Test Name Value Interpretation Reference Range Facil ity Vital Signs Date Time Vital Sign Value Performing Clinician Freddiei lity 01-14-2023 17:46-0400 Body temperature 98.4 [degF] Roshni Ayers APRN.CNP Work Phone: [facility] 01-14-2023 17:46-0400 Body weight 91.54 kg Roshni Ayers APRN.CNP Work Phone: [facility] 01-14-2023 17:46-0400 Diastolic blood pressure 75 mm[Hg] Roshni Ayers APRN.CNP Work Phone: [facility] 01-14-2023 17:46-0400 Heart rate 111 /min Roshni Ayers APRN.CNP Work Phone: [facility] 01-14-2023 17:46-0400 Respiratory rate 24 /min Roshni yAers APRN.CNP Work Phone: [facility] 01-14-2023 17:46-0400 SaO2% (BldA) [Mass fraction] 96 % Roshni Ayers APRN.CNP Work Phone: [facility] 01-14-2023 17:46-0400 Systolic blood pressure 146 mm[Hg] Roshni Ayers APRN.FILM CUTTER Work Phone: [facility] 09-25-2021 09:32-0400 Body height 170.2 cm Sami Riggs MD Work Phone: [facility] 09-25-2021 09:32-0400 Body temperature 97.9 [degF] Sami Riggs MD Work Phone: [facility] 09-25-2021 09:32-0400 Body weight 93.53 kg Sami Riggs MD Work Phone: [facility] 09-25-2021 09:32-0400 Diastolic blood pressure 78 mm[Hg] Sami Riggs MD Work Phone: [facility] 09-25-2021 09:32-0400 Heart rate 105 /min Sami Riggs MD Work Phone: [facility] 09-25-2021 09:32-0400 SaO2% (BldA) [Mass fraction] 97 % Sami Riggs MD Work Phone: [facility] 09-25-2021 09:32-0400 Systolic blood pressure 136 mm[Hg] Sami Riggs MD Work Phone: [facility] Encounters Encounter Date Encounter Type Care Provider Facility Start: 01-14-2023 End: 01-14-2023 ambulatory [facility] Facility:[facility] Start: 01-14-2023 End: 01-14-2023 Patient encounter procedure Roshni Ayers APRN.FILM CUTTER Work Phone: [facility] Procedures Date Procedure Procedure Detail Performing Clinician Start: 06-02-2007 Colonoscopy Sami ridley MD Work Phone: Plan of Treatment Date Care Activity Detail Author Start: 12-17-2022 Influenza vaccination Influenza Vacc ine (#1) [facility] Start: 04-18-2022 Advance Directive Discussion Advance Directive Discussion [facility] Start: 04-18-2022 Depression Assessment Depression Ass essment [facility] Start: 12-17-2021 Influenza vaccination INFLUENZA (Sea son Ended) [facility] Start: 06-17-2021 Covid-19 Vaccine (3 - Booster for Celsa series) Covid-19 Vaccine (3 - Booster for Celsa series) [facility] Start: 04-18-2021 ADVANCE DIRECTIVE DISCUSSION ADVANCE DIRECTIVE DISCUSSION [facility] Start: 06-02-2017 Colonoscopy COLONOSCOPY [facility] Start: 06-02-2017 COLORECTAL CANCER SCREENING COLORECTAL CANCER SCREENING [facility] Start: 10-18-2012 Hepatitis B surface antibody level LDL CHOLESTEROL [facility] Start: 08-25-2012 3 comp foot exam completed DIABETIC FOOT EXAM [facility] Start: 04-20-2012 Hemoglobin A1c/Hemoglobin.total in Blood HBA1C [facility] Start: 01-31-2012 Hepatitis C antibody , confirmatory test DILATED RETINAL EXAM [facility] Start: 11-07-2011 Hepatitis B screening URINE AL BUMIN:CREATININE RATIO [facility] Start: 2007 Hepatitis B Vaccine (1 of 3 - Risk 3-dose series) Hepatitis B Vaccine (1 of 3 - Risk 3-dose series) [facility] Start: 11-26-1997 SHINGRIX VACCINE (1 of 2) SHINGRIX V ACCINE (1 of 2) [facility] Start: 11-26-1992 COLOGUARD (FIT-DNA) COLOGUARD (FIT-D NA) [facility] Start: 11-26-[address] COLONOGRAPHY [facility] Start: 11-26-1992 FECAL OCCULT BLOOD FECAL OCCULT BLOO D [facility] Start: 11-26-1992 SIGMOIDOSCOPY SIGMOIDOSCOPY [facility] Start: 11-26-1966 Urine microalbumin profile [facility] Start: 11-26-1965 ANNUAL PCP TEAM EARTH MOVING TECHNICIAN MAI DISEASE VISIT ANNUAL PCP TEAM CHRONIC DISEASE VISIT [facility] Start: 11-26-1965 BP CONTROLLED (<130/80) BP CONTROLLE D (<130/80) [facility] Start: 11-26-1965 HEPATITIS C SCREENING HEPATITIS C SC REENING [facility] Start: 1959 Adult depression scr eening assessment DEPRESSION SCREENING [facility] Start: 11-26-1953 Pneumococcal Vaccine : 65+ (1 - PCV) Pneumococcal Vaccine: 65+ (1 - PCV) [facility] Start: 11-26-1953 PNEUMOCOCCAL: 65+ (1 - PCV) PNEUMOCOCCAL: 65+ (1 - PCV) [facility] Start: 11-26-1952 COVID-19 VACCINE (#1) COVID-19 VACCI NE (#1) [facility] Start: 1945 ABDOMINAL AORTIC ANE URYSM SCREENING ABDOMINAL AORTIC ANEURYSM SCREENING [facility] Immunizations Immunization Date Immunization Notes Care Provider Liz hanna 02-16-2022 influenza virus vaccine, unspecified formulation Roshni Ayers NURSERY MANAGER.FILM CUTTER Work Phone: [facility] 02-11-2010 influenza virus vaccine, unspecified formulation Sami Riggs MD Work Phone: [facility] Work Phone: 01-08-2009 influenza virus vaccine, unspecified formulation Sami Riggs MD Work Phone: [facility] Work Phone: 02-09-2008 influenza virus vaccine, unspecified formulation Sami Riggs MD Work Phone: [facility] Work Phone: Payers Date Payer Category Payer Medicare [employer] [place] [place] [id number] 2021-Present [phone] [address] [place] [address] O [id number] 2021 Medicare [employer] [place] [place] [id number] 2021-Present [phone] [address] [place] [address] O [id number] 2021 Medicare [id number] Medicare [id number] Unknown [id number] Social History Date Type Detail Facility Start: 01-14-2023 [facility] End: 04-18-1995 History of tobacco use Current smoker [facility] Start: 09-25-2021 End: 01-14-2023 Alcohol intake Current drinker of alcohol (finding) [facility] Start: 1945 Sex Assigned At Not on file C [facility] Start: 09-15-2021 End: 09-25-2021 Exposure to SARS-CoV-2 (event) Not sure [facility] End: 04-18-1995 History of tobacco use Cigarette Smoker [facility] Start: 01-14-2023 Tobacco use and exposure Randolph alonso smokeless tobacco user [facility] Start: 01-14-2023 History of Social function [facility] Start: 01-14-2023 Tobacco use panel [facility] Progress note 01-14-2023 Note Date & Type Note Facility 01-14-2023 Note HNO ID: [id number] Author: Roshni Ayers APRN.FILM CUTTER Service: ? Author Type: Nurse Practitioner Type: Progress Notes Filed: 01/14/2023 6:08 PM Note Text: Subjective Came in with complaints of tingling burning feeling down his left inner leg. Patient was started on Levaquin 3 days ago for pneumonia. Patient does not have significant allergy history just lisinopril. Patient only took 3 doses of the Levaquin. Patient denies any pain or decreased range of motion. Patient says currently the pain has subsided. The history is provided by the patient. No speech language pathologist assistant was used. Review of Systems Constitutional: Negative. Skin: Negative. Objective Physical Exam Constitutional: Appearance: Normal appearance. Pulmonary: Effort: Pulmonary effort is normal. Musculoskeletal: Legs: Comments: Patient says the pain is in the area marked above but is not currently having it. Range of motion within normal limits for ankle. Neurological: Mental Status: He is alert. PAST MEDICAL HISTORY Diagnosis Date Backache, unspecified 04/18/1988 fall off of a ladder, WC COPD (chronic obstructive pulmonary disease) (HCC) Diabetes mellitus (HCC) Essential hypertension History of colonic polyps Hypercholesterolemia Insomnia Lumbar radiculopathy Prostatitis, unspecified Pure hyperglyceridemia Thyroid nodule 2021 PAST SURGICAL HISTORY Procedure Laterality Date COLONOSCOPY FLX DX W/COLLJ SPEC WHEN PFRMD 06/02/07 Normal colon PAST SURGICAL HISTORY OF neck lesion REM LESION NEC,HND,SCAL 2.1-3.0CM 05/24/07 Exc jyothi cyst posterior neck ALLERGIES Lisinopril MEDICATIONS levoFLOXacin (LEVAQUIN) 500 mg tablet Take 500 mg by mouth once daily. atorvastatin (LIPITOR) 10 mg tablet Take 10 mg by mouth once daily. metFORMIN (GLUCOPHAGE) 500 mg tablet Take 1 tablet by mouth three times daily. tiotropium 18 mcg Cap Inhale 18 mcg as instructed once daily. budesonide-formoterol (SYMBICORT) 160-4.5 mcg/actuation inhaler Inhale 2 Puffs as instructed twice daily. losartan (COZAAR) 100 mg ORAL tablet Take 1 tablet by mouth once daily. traMADOL 50 mg ORAL tablet Take 1 tablet by mouth. take daily as needed for pain albuterol HFA 90 mcg/Actuation INHALATION inhaler Inhale 2 Puffs as instructed every 4 hours as needed. doxycycline monohydrate 100 mg tablet Take 1 tablet by mouth two times a day for 5 days. amoxicillin-clavulanic acid (AUGMENTIN) 875-125 mg per tablet Take 1 tablet by mouth two times a day for 5 days. gabapentin (NEURONTIN) 300 mg capsule (Patient not taking: Reported on 09/25/2021) simvastatin (ZOCOR) 40 mg tablet Take 1 tablet by mouth daily at bedtime. (Patient not taking: Reported on 09/25/2021 ) Phentermine HCl 37.5 mg tablet Take 1 tablet by mouth daily before breakfast. (Patient not taking: Reported on 09/25/2021) glipiZIDE 5 mg ORAL tablet Take 1 tablet by mouth four times daily. (Patient not taking: Reported on 09/25/2021 ) FAMILY HISTORY Problem Relation Age of Onset Diabetes Mother late in life Stroke Brother Colon Cancer Other none Coronary Artery Disease Other none Prostate Cancer Other none Social History Tobacco Use Smoking status: Former Types: Cigarettes Quit date: 04/18/1995 Years since quittin.7 Smokeless tobacco: Former Vaping Use Vaping Use: Never used Substance Use Topics Alcohol use: Yes Comment: QUIT 1980 Drug use: Yes Comment: USE ON THE ASSESSMENT/PLAN: 1. Bacterial pneumonia - ICD9: 482.9, ICD10: J15.9 - DOXYCYCLINE MONOHYDRATE 100 MG TABLET - AMOXICILLIN 875 MG-POTASSIUM CLAVULANATE 125 MG TABLET Medication was changed to a different medication regiment. Patient was instructed to stop taking Levaquin. Patient was instructed to monitor signs and symptoms closely and if they return to go to the emergency room. Patient and are both okay with this care plan. Roshni Ayers APRN.FILM CUTTER [facility] History of Present illness Narrative 01-14-2023 Roshni Ayers APRN.RIOS - 01/14/2023 6:06 PM EDT Note Date & Type Note Facility 01-14-2023 History of Presen t illness Narrative Images from the original note were not included. Subjective Came in with complaints of tingling burning feeling down his left inner leg. Patient was started on Levaquin 3 days ago for pneumonia. Patient does not have significant allergy history just lisinopril. Patient only took 3 doses of the Levaquin. Patient denies any pain or decreased range of motion. Patient says currently the pain has subsided. The history is provided by the patient. No speech language pathologist assistant was used. Review of Systems Constitutional: Negative. Skin: Negative. Objective Physical Exam Constitutional: Appearance: Normal appearance. Pulmonary: Effort: Pulmonary effort is normal. Musculoskeletal: Legs: Comments: Patient says the pain is in the area marked above but is not currently having it. Range of motion within normal limits for ankle. Neurological: Mental Status: He is alert. PAST MEDICAL HISTORY Diagnosis Date Backache, unspecified 04/18/1988 fall off of a ladder, WC COPD (chronic obstructive pulmonary disease) (HCC) Diabetes mellitus (HCC) Essential hypertension History of colonic polyps Hypercholesterolemia Insomnia Lumbar radiculopathy Prostatitis, unspecified Pure hyperglyceridemia Thyroid nodule 2021 PAST SURGICAL HISTORY Procedure Laterality Date COLONOSCOPY FLX DX W/COLLJ SPEC WHEN PFRMD 06/02/07 Normal colon PAST SURGICAL HISTORY OF neck lesion REM LESION NEC,HND,SCAL 2.1-3.0CM 05/24/07 Exc jyothi cyst posterior neck ALLERGIES Lisinopril MEDICATIONS levoFLOXacin (LEVAQUIN) 500 mg tablet Take 500 mg by mouth once daily. atorvastatin (LIPITOR) 10 mg tablet Take 10 mg by mouth once daily. metFORMIN (GLUCOPHAGE) 500 mg tablet Take 1 tablet by mouth three times daily. tiotropium 18 mcg Cap Inhale 18 mcg as instructed once daily. budesonide-formoterol (SYMBICORT) 160-4.5 mcg/actuation inhaler Inhale 2 Puffs as instructed twice daily. losartan (COZAAR) 100 mg ORAL tablet Take 1 tablet by mouth once daily. traMADOL 50 mg ORAL tablet Take 1 tablet by mouth. take daily as needed for pain albuterol HFA 90 mcg/Actuation INHALATION inhaler Inhale 2 Puffs as instructed every 4 hours as needed. doxycycline monohydrate 100 mg tablet Take 1 tablet by mouth two times a day for 5 days. amoxicillin-clavulanic acid (AUGMENTIN) 875-125 mg per tablet Take 1 tablet by mouth two times a day for 5 days. gabapentin (NEURONTIN) 300 mg capsule (Patient not taking: Reported on 09/25/2021) simvastatin (ZOCOR) 40 mg tablet Take 1 tablet by mouth daily at bedtime. (Patient not taking: Reported on 09/25/2021 ) Phentermine HCl 37.5 mg tablet Take 1 tablet by mouth daily before breakfast. (Patient not taking: Reported on 09/25/2021) glipiZIDE 5 mg ORAL tablet Take 1 tablet by mouth four times daily. (Patient not taking: Reported on 09/25/2021 ) FAMILY HISTORY Problem Relation Age of Onset Diabetes Mother late in life Stroke Brother Colon Cancer Other none Coronary Artery Disease Other none Prostate Cancer Other none Social History Tobacco Use Smoking status: Former Types: Cigarettes Quit date: 04/18/1995 Years since quittin.7 Smokeless tobacco: Former Vaping Use Vaping Use: Never used Substance Use Topics Alcohol use: Yes Comment: QUIT 1980 Drug use: Yes Comment: USE ON THE ASSESSMENT/PLAN: 1. Bacterial pneumonia - ICD9: 482.9, ICD10: J15.9 - DOXYCYCLINE MONOHYDRATE 100 MG TABLET - AMOXICILLIN 875 MG-POTASSIUM CLAVULANATE 125 MG TABLET Medication was changed to a different medication regiment. Patient was instructed to stop taking Levaquin. Patient was instructed to monitor signs and symptoms closely and if they return to go to the emergency room. Patient and are both okay with this care plan. Roshni Ayers APRN.RIOS documented in this encounter [facility] History of Present illness Narrative 09-25-2021 Sami Riggs MD - 09/25/2021 9:45 AM EDT Note Date & Type Note Facility 09-25-2021 History of Presen t illness Narrative HISTORY AND PHYSICAL [place] 1945 REFERRING PHYSICIAN: Wero Porter, * CHIEF COMPLAINT: Consult (thyroid nodules) HPI: The patient is a 75 year old male with a complaint of a left thyroid nodule. This thyroid nodule was found on Ultrasound by [facility]. The patient denies pain, denies difficulty swallowing, deniesrapid enlargement of the neck, deniesdysphagia, denies a change in the voice, denies hot or cold intolerence. The patient has not a prior history of neck radiation treatment. The patient is being seen by me today at the request of Dr. Wero Porter MD for my opinion and advice regarding Multinodular goiter (primary encounter diagnosis). PAST MEDICAL HISTORY Diagnosis Date Backache, unspecified 04/18/1988 fall off of a ladder, COPD (chronic obstructive pulmonary disease) (HCC) Diabetes mellitus (HCC) Essential hypertension History of colonic polyps Hypercholesterolemia Insomnia Lumbar radiculopathy Prostatitis, unspecified Pure hyperglyceridemia Thyroid nodule 2021 PAST SURGICAL HISTORY Procedure Laterality Date COLONOSCOPY FLX DX W/COLLJ SPEC WHEN PFRMD 06/02/07 Normal colon PAST SURGICAL HISTORY OF neck lesion REM LESION NEC,HND,SCAL 2.1-3.0CM 05/24/07 Exc jyothi cyst posterior neck Current Outpatient Medications Medication Sig Dispense Refill atorvastatin (LIPITOR) 10 mg tablet Take 10 mg by mouth once daily. metFORMIN (GLUCOPHAGE) 500 mg tablet Take 1 tablet by mouth three times daily. 270 tablet 0 tiotropium 18 mcg Cap Inhale 18 mcg as instructed once daily. budesonide-formoterol (SYMBICORT) 160-4.5 mcg/actuation inhaler Inhale 2 Puffs as instructed twice daily. losartan (COZAAR) 100 mg ORAL tablet Take 1 tablet by mouth once daily. 30 tablet 5 traMADOL 50 mg ORAL tablet Take 1 tablet by mouth. take daily as needed for pain 0 albuterol HFA 90 mcg/Actuation INHALATION inhaler Inhale 2 Puffs as instructed every 4 hours as needed. 1 Inhaler 11 gabapentin (NEURONTIN) 300 mg capsule (Patient not taking: Reported on 09/25/2021) simvastatin (ZOCOR) 40 mg tablet Take 1 tablet by mouth daily at bedtime. (Patient not taking: Reported on 09/25/2021 ) 90 tablet 3 Phentermine HCl 37.5 mg tablet Take 1 tablet by mouth daily before breakfast. (Patient not taking: Reported on 09/25/2021) 30 tablet 0 glipiZIDE 5 mg ORAL tablet Take 1 tablet by mouth four times daily. (Patient not taking: Reported on 09/25/2021 ) 360 tablet 3 No current facility-administered medications for this visit. ALLERGIES: Lisinopril PERSONAL HISTORY: Social History Tobacco Use Smoking status: Former Smoker Quit date: 04/18/1995 Years since quittin.4 Smokeless tobacco: Former User Vaping Use Vaping Use: Never used Substance Use Topics Alcohol use: Yes Comment: QUIT 1980 Drug use: Yes Comment: USE ON THE FAMILY HISTORY: FAMILY HISTORY Problem Relation Age of Onset Diabetes Mother late in life Stroke Brother Colon Cancer Other none Coronary Artery Disease Other none Prostate Cancer Other none REVIEW OF SYMPTOMS: The review of systems data was entered by the nurse and reviewed by ma Nursing Notes: Edita Morales RN 09/25/2021 9:34 AM Signed REVIEW OF SYSTEMS: General: The patient denies fatigue, denies weight loss, denies weight gain, denies feeling hot, and denies feelings of cold. Eyes: The patient denies glaucoma, NOTES eye injury/surgery, does not wear glasses or contacts. Ear/Nose/Throat: The patient denies allergies, denies hayfever, denies ear infections, and denies bloody noses. Cardiovascular: The patient denies chest pain, denies heart disease, NOTES high blood pressure,denies cardiac stent, denies prior heart attack, denies irregular heart beat, NOTES high cholesterol, denies poor circulation, denies heart failure, other cardiac issues, denies claudication, denies cold feet, denies peripheral arterial stent. Respiratory: The patient denies tuberculosis, denies pneumonia, denies frequent cough, denies pulmonary embolism, NOTES shortness of breath, and denies coughing up blood. Gastrointestinal: The patient denies difficulty swallowing, denies acid reflux, denies ulcers, denies vomiting, denies jaundice/hepatitis, denies gallbladder problems, denies black or tarry stools, denies hemorrhoids, denies bleeding from rectum, denies diverticulitis, denies constipation, denies diarrhea, denies loss of stool control, and denies hernias. Kidney/Bladder: The patient denies kidney stones, denies urine infections, and denies bloody urine. Skin: The patient denies a history of skin cancer, denies bleeding/changing moles, and denies a history of skin rash. Neurologic: The patient denies a history of epilepsy/convulsions, denies headaches, denies head/spinal injuries, and denies stroke/TIA. Psychiatric: The patient denies psychiatric medications, denies depression, and denies voices, denies substance abuse. Endocrine: The patient denies thyroid disorders, NOTES diabetes, and denies hormonal problems. Hematologic: The patient denies a history of bruising, denies bleeding, and denies anemia, denies blood clots. Infections: The patient denies a history of measles and mumps, denies rheumatic fever, and denies sexually transmitted diseases. Musculoskeletal: The patient denies back pain/injury, NOTES back problems, denies sciatica, denies knee/foot trouble, denies arthritis, or denies gout. When was patient's last Mammogram screening? Last Colonoscopy: 2019 Edita Morales RN PHYSICAL EXAMINATION: General: The patient is 75 year old male, well nourished, well hydrated in no acute distress. The patient is oriented to time, place, and person. VITALS: Blood pressure 136/78, pulse 105, temperature 36.6 C (97.9 F), height 170.2 cm (5' 7 ), weight 93.5 kg (206 lb 3.2 oz), SpO2 97 %. Body mass index is 32.3 kg/m . HEENT: Normal cephalic, ataumatic, pupils are equally round, sclera are anicteric, mucous membranes are moist, oropharynx is clear. Neck has no masses, asymmetry or lymphadenopathy. Thyroid exam thyroid nodule is palpable on the left side. There are no hard nodules nor is there any lymphadenopathy palpated.. Respiratory: Clear to auscultation and percussion. Normal respiratory excursion and pattern. Cardiac: Examination is regular rate and rhythm. Abdominal exam: Soft, nontender, with no palpable masses. No hepatosplenomegaly. No palpable hernias. Rectal exam: exam deferred Extremities: no clubbing, cyanosis or edema. No adenopathy. Other: LABORATORY VALUES: As Noted RADIOLOGIC STUDIES: As Noted Assessment IMPRESSION: NODULE - left THYROID PLAN: I offered a fine-needle aspiration of the left thyroid gland x2. I explained to the patient the procedure in detail. I explained to the patient why he needed to have this done and that there was no way for me to tell him if there is anything bad or not. The patient declined to have any fine-needle aspirations done at this time. Diagnoses: (E04.2) Multinodular goiter (primary encounter diagnosis) A letter was sent to Dr. Wero Porter MD indicating the above finding for this patient. Return to Clinic: The patient is instructed to follow-up with me as needed. Sami Riggs III, MD documented in this encounter [facility] Nurse Note 09-25-2021 Edita Morales RN - 09/25/2021 9:29 AM EDT Note Date & Type Note Facility 09-25-2021 Nurse Note REVIEW OF SYSTEMS: General: The patient denies fatigue, denies weight loss, denies weight gain, denies feeling hot, and denies feelings of cold. Eyes: The patient denies glaucoma, NOTES eye injury/surgery, does not wear glasses or contacts. Ear/Nose/Throat: The patient denies allergies, denies hayfever, denies ear infections, and denies bloody noses. Cardiovascular: The patient denies chest pain, denies heart disease, NOTES high blood pressure,denies cardiac stent, denies prior heart attack, denies irregular heart beat, NOTES high cholesterol, denies poor circulation, denies heart failure, other cardiac issues, denies claudication, denies cold feet, denies peripheral arterial stent. Respiratory: The patient denies tuberculosis, denies pneumonia, denies frequent cough, denies pulmonary embolism, NOTES shortness of breath, and denies coughing up blood. Gastrointestinal: The patient denies difficulty swallowing, denies acid reflux, denies ulcers, denies vomiting, denies jaundice/hepatitis, denies gallbladder problems, denies black or tarry stools, denies hemorrhoids, denies bleeding from rectum, denies diverticulitis, denies constipation, denies diarrhea, denies loss of stool control, and denies hernias. Kidney/Bladder: The patient denies kidney stones, denies urine infections, and denies bloody urine. Skin: The patient denies a history of skin cancer, denies bleeding/changing moles, and denies a history of skin rash. Neurologic: The patient denies a history of epilepsy/convulsions, denies headaches, denies head/spinal injuries, and denies stroke/TIA. Psychiatric: The patient denies psychiatric medications, denies depression, and denies voices, denies substance abuse. Endocrine: The patient denies thyroid disorders, NOTES diabetes, and denies hormonal problems. Hematologic: The patient denies a history of bruising, denies bleeding, and denies anemia, denies blood clots. Infections: The patient denies a history of measles and mumps, denies rheumatic fever, and denies sexually transmitted diseases. Musculoskeletal: The patient denies back pain/injury, NOTES back problems, denies sciatica, denies knee/foot trouble, denies arthritis, or denies gout. When was patient's last Mammogram screening? Last Colonoscopy: 2019 Edita Morales RN documented in this encounter [facility] History of Past illness Narrative 05-12-2007 Note Date & Type Note Facility documented as of this encounter (statuses as of 09/25/2021) [facility] History of Past illness Narrative 05-12-2007 Note Date & Type Note Facility documented as of this encounter (statuses as of 01/15/2023) [facility] Evaluation note Note Date & Type Note Facility documented in this encounter [facility] Evaluation note Note Date & Type Note Facility documented in this encounter [facility] Summary Purpose Family History No Family History Records FoundNo Family History Records Found Advance Directives No Advanced Directives Records FoundNo Advanced Directives Records Found Additional Source Comments (unrecognized sect ion and content) No Status Records FoundNo Status Records Found INFORMATION SOURCE (unrecogn ized section and content) DATE CREATED AUTHOR AUTHOR'S ORGANIZ ATION 01/21/2023 [facility] Source Comments (unrecognize d section and content) In the event this informatio n is protected by the Federal Confidentiality of Alcohol and Drug Abuse Patient Records regulations: The Federal rules restrict any use of the information to criminally investigate or prosecute any alcohol or drug abuse patient.[facility] event this information is protected by the Federal Confidentiality of Alcohol and Drug Abuse Patient Records regulations: The Federal rules restrict any use of the information to criminally investigate or prosecute any alcohol or drug abuse patient.[facility] Reason for Visit (unrecogniz ed section and content) Reason Comments Left Lower Extremity Pain On levaquin an d is having burning and pressure in LLE x x 1 day Care Teams (unrecognized sec tion and content) Medical Management Specialist Relationship Specialty Start Date End Date Wero Porter MD [address] [address] [place] [address] PCP - General Family Medicine 09/22/21 FOR RECORDS PERTAINING TO PATIENTS WHO ARE OR HAVE BEEN ENROLLED IN A CHEMICAL DEPENDENCY/SUBSTANCEABUSE PROGRAM, SOME INFORMATION MAY BE OMITTED. This clinical summary was aggregated from multiple sources. Caution should be exercised in using it in the provision of clinical care. This summary normalizes information from multiple sources, and as a consequence, information in this document may materially change the coding, format and clinical context of patient data. In addition, data may be omitted in some cases. CLINICAL DECISIONS SHOULD BE BASED ON THE PRIMARY CLINICAL RECORDS. [facility]. provides no warranty or guarantee of the accuracy or completeness of information in this document.
== END | disposition home or self-care (01) ==
LOC: MFPLAB 09:07
PROVIDERS: PCP Family Medicine; Visit Provider Family Medicine
DX: R69 Illness, unspecified (principal)
CPT/HCPCS: 36415; 80053; 80061; 82043; 82570; 83036

== ENCOUNTER → 2023-06-08 | Outpatient (CLI) | payer MEDICARE, SELFPAY ==
[2023-06-08 13:02] LABS: PSA,Total- Diagnostic 3.81 ng/mL (0.0-4.0)
== END | disposition home or self-care (01) ==
LOC: LAB.FUTURE 09:58
PROVIDERS: PCP Family Medicine; Referring Provider Urology; Visit Provider Urology
DX: N40.1 Benign prostatic hyperplasia with lower urinary tract symptoms (principal)
CPT/HCPCS: 36415; 84153

== ENCOUNTER → 2023-07-06 | Outpatient (CLI) | payer MEDICARE, SELFPAY ==
[2023-07-06 12:24] LABS: Absolute Lymphocyte Count 2.41 X10^3/uL (0.83-4.51); Absolute Neutrophil Count 4.3 X10^3/uL (2.0-7.7); Basophil# 0.07 X10^3/uL; Basophil% 0.9 % (0-1); Eosinophil# 0.26 X10^3/uL; Eosinophils% 3.3 % (0-5); Hematocrit 37.7 % (40-54); Hemoglobin 12.4 g/dL (13.0-16.5); Lymphocyte # 2.41 X10^3/ul (0.83-4.51); Lymphocyte % 30.9 % (19-41); Mean Corp Hgb Conc 32.9 g/dL (32-36); Mean Corpuscular Hgb 29.4 pg (27.0-32.0); Mean Corpuscular Volume 89.3 fL (80-94); Mean Platelet Vol. 10.9 fl (6.2-12.0); Monocyte# 0.81 X10^3/uL; Monocyte% 10.4 % (0-10); NRBC Flagged by Analyzer 0 % (0-5); Neutrophil # 4.25 X10^3/uL (2.7-7.7); Neutrophil % 54.4 % (47-70); Platelet Count 275 K/mm3 (150-450); RBC Distribution Width CV 12.6 % (11.6-14.6); RBC Distribution Width SD 40.9 fl (35.1-43.9); Red Blood Count 4.22 M/mm3 (4.6-6.2); White Blood Count 7.8 K/mm3 (4.4-11.0)
[2023-07-06 13:04] LABS: ALB/GLOB Ratio 1.1 RATIO (0.9-2.4); AST(SGOT) 17 U/L (15-37); Alanine Aminotransfer ALT/SGPT 24 U/L (16-61); Albumin, Serum 3.9 g/dL (3.2-5.0); Alkaline Phosphatase 71 U/L (45-117); Anion Gap 11 (5-15); BUN 18 mg/dL (7-18); BUN/Creat Ratio 18.3 RATIO (10-20); Calcium,Total 9.1 mg/dL (8.5-10.1); Chloride 99 mmol/L (98-107); Cholesterol 97 mg/dL (200); Creatinine, Serum 0.99 mg/dL (0.70-1.30); EST Glomerular Filtration Rate 79 mL/min (>60); Est Glom Filt Rate - Afr Amer 95 mL/min (>60); Globulin 3.4 g/dL (2.2-4.2); Glucose 158 mg/dL (74-106); High Density Lipoprotein 44 mg/dL; Potassium 3.4 mmol/L (3.5-5.1); Protein, Total 7.3 g/dL (6.4-8.2); Sodium Level 136 mmol/L (136-145); Triglycerides 144 mg/dL; Very Low Density Lipoprotein 29 mg/dL (5-40)
[2023-07-06 13:21] LABS: Microalbumin,Random Urine 7.8 mg/L (NO RANGE EST.)
[2023-07-06 16:04] LABS: Hemoglobin A1c 6.5 % (3.8-5.6)
== END | disposition home or self-care (01) ==
LOC: MFPLAB 10:18
PROVIDERS: PCP Family Medicine; Visit Provider Family Medicine
DX: E11.59 Type 2 diabetes mellitus with other circulatory complications (principal); E11.65 Type 2 diabetes mellitus with hyperglycemia
CPT/HCPCS: 36415; 80053; 80061; 82043; 82570; 83036; 85025

== ENCOUNTER → 2023-07-21 | Outpatient (CLI) | payer MEDICARE, SELFPAY ==
[2023-07-21 10:03] LABS: Basophil# 0.06 X10^3/uL; Basophil% 0.7 % (0-1); Eosinophil# 0.35 X10^3/uL; Eosinophils% 4.2 % (0-5); Hematocrit 39.3 % (40-54); Hemoglobin 13.1 g/dL (13.0-16.5); Lymphocyte % 36.2 % (19-41); Mean Corp Hgb Conc 33.3 g/dL (32-36); Mean Corpuscular Hgb 29.5 pg (27.0-32.0); Mean Corpuscular Volume 88.5 fL (80-94); Mean Platelet Vol. 10.6 fl (6.2-12.0); Monocyte# 0.87 X10^3/uL; Monocyte% 10.5 % (0-10); NRBC Flagged by Analyzer 0 % (0-5); Neutrophil # 3.98 X10^3/uL (2.7-7.7); Neutrophil % 48.2 % (47-70); Platelet Count 312 K/mm3 (150-450); RBC Distribution Width CV 12.4 % (11.6-14.6); RBC Distribution Width SD 40.3 fl (35.1-43.9); Red Blood Count 4.44 M/mm3 (4.6-6.2); White Blood Count 8.3 K/mm3 (4.4-11.0)
[2023-07-21 10:22] LABS: Vitamin B12 349 pg/mL (211-911)
[2023-07-21 11:05] LABS: Ferritin 84 ng/mL (26-388); Iron 77 ug/dL (65-175); Iron Binding Capacity,Total 351 ug/dL (250-450)
== END | disposition home or self-care (01) ==
LOC: MFPLAB 08:50
PROVIDERS: PCP Family Medicine; Visit Provider Family Medicine
DX: D64.9 Anemia, unspecified (principal)
CPT/HCPCS: 36415; 82607; 82728; 82746; 83540; 83550; 85025

== ENCOUNTER → 2023-11-17 | Outpatient (CLI) | payer MEDICARE, SELFPAY ==
[2023-11-17 12:35] LABS: Mucous, Urine 0 SEEN /hpf (<or=2+); Red Blood Cells-Urine 0 SEEN /hpf (0-5); Squamous Epithelial Cells - UA 0 SEEN /hpf (0-5); White Blood Cells 0 SEEN /hpf (0-5)
[2023-11-17 15:13] LABS: Absolute Lymphocyte Count 2.61 X10^3/uL (0.83-4.51); Absolute Neutrophil Count 4.5 X10^3/uL (2.0-7.7); Basophil# 0.07 X10^3/uL; Basophil% 0.8 % (0-1); Eosinophil# 0.37 X10^3/uL; Eosinophils% 4.4 % (0-5); Hematocrit 37.8 % (40-54); Hemoglobin 12.4 g/dL (13.0-16.5); Lymphocyte # 2.61 X10^3/ul (0.83-4.51); Lymphocyte % 31.1 % (19-41); Mean Corp Hgb Conc 32.8 g/dL (32-36); Mean Corpuscular Hgb 29.4 pg (27.0-32.0); Mean Corpuscular Volume 89.6 fL (80-94); Monocyte# 0.84 X10^3/uL; NRBC Flagged by Analyzer 0 % (0-5); Neutrophil # 4.48 X10^3/uL (2.7-7.7); Neutrophil % 53.5 % (47-70); Platelet Count 279 K/mm3 (150-450); RBC Distribution Width CV 12.6 % (11.6-14.6); RBC Distribution Width SD 41.2 fl (35.1-43.9); Red Blood Count 4.22 M/mm3 (4.6-6.2); White Blood Count 8.4 K/mm3 (4.4-11.0)
[2023-11-17 15:23] LABS: Color, Urine Yellow (Yellow); Glucose, Dipstick Normal (Normal); Ketone-Dipstick Negative (Negative); Leukocyte Esterase-Dipstick Negative /ul (Negative); Nitrite-Dipstick Negative (Negative); Occult Blood-Urine Negative /ul (Negative); Protein-Dipstick Negative (Negative); Urine Bilirubin Dipstick Negative (Negative); Urine Clarity Clear (Clear); Urine Urobilinogen Normal (Normal)
[2023-11-17 15:29] LABS: ALB/GLOB Ratio 1.1 RATIO (0.9-2.4); AST(SGOT) 19 U/L (15-37); Alanine Aminotransfer ALT/SGPT 33 U/L (16-61); Albumin, Serum 3.9 g/dL (3.2-5.0); Alkaline Phosphatase 69 U/L (45-117); Anion Gap 5 (5-15); BUN 19 mg/dL (7-18); BUN/Creat Ratio 20.6 RATIO (10-20); Chloride 101 mmol/L (98-107); Cholesterol 101 mg/dL (200); Creatinine, Serum 0.92 mg/dL (0.70-1.30); EST Glomerular Filtration Rate 85 mL/min (>60); Est Glom Filt Rate - Afr Amer 103 mL/min (>60); Globulin 3.6 g/dL (2.2-4.2); Glucose 133 mg/dL (74-106); High Density Lipoprotein 42 mg/dL; Potassium 3.8 mmol/L (3.5-5.1); Protein, Total 7.5 g/dL (6.4-8.2); Sodium Level 137 mmol/L (136-145); Triglycerides 180 mg/dL; Very Low Density Lipoprotein 36 mg/dL (5-40)
[2023-11-17 15:36] LABS: Hemoglobin A1c 6.7 % (3.8-5.6)
[2023-11-17 16:15] LABS: Bacteria 1+ /hpf (None Seen)
[2023-11-17 17:10] LABS: Microalbumin,Random Urine 11.7 mg/L (NO RANGE EST.); Microalbumin:Creatinine Ratio 11.4 mg/g CRE (<30 mg/g CRE)
== END | disposition home or self-care (01) ==
LOC: MTLAB 12:32
PROVIDERS: PCP Family Medicine; Referring Provider Family Medicine; Visit Provider Family Medicine
DX: E11.8 Type 2 diabetes mellitus with unspecified complications (principal)
CPT/HCPCS: 36415; 80053; 80061; 81001; 82043; 82570; 83036; 85025

== ENCOUNTER → 2023-12-12 | Outpatient (CLI) | payer MEDICARE, SELFPAY ==
--- NOTE | 2023-12-12 14:40 | US_ITS ---
STUDY: THYROID ULTRASOUND REASON FOR EXAM: Male, 78 years old. Thyroid nodules. TECHNIQUE: Ultrasound evaluation of the thyroid was performed with real-time and static riojas-scale imaging. COMPARISON: Comparison is made with prior study of September 18, 2021. FINDINGS: RIGHT LOBE: The right lobe of the thyroid gland measures 4.5 cm x 1.5 cm x 1.9 cm. There is a homogeneous echotexture. Stable complex solid cystic nodule with increased SE in the midportion of the right lobe measuring 1.9 cm x 1.3 cm x 1 cm. There is also evidence of a 3 mm x 3 mm x 2 mm solid/cystic nodule with increased vascularity in the superior midportion of the right lobe. LEFT LOBE: The left lobe of the thyroid gland measures 4 cm x 1.7 cm x 2.1 cm. There is a homogeneous echotexture. Once again, there is a dominant 2.3 cm x 1.5 cm x 1.7 cm solid nodule with increased vascularity in the midpole. A similar appearing nodule measuring 1.4 cm x 1.1 cm x 0.5 cm is also seen in the midpole. This is unchanged. There is also evidence of a 5 mm x 5 mm x 4 mm solid/cystic nodule in the upper pole of the right lobe as well as a 7 mm x 7 mm x 4 mm solid/cystic nodule in the inferior pole. ISTHMUS: The isthmus measures 3.5 mm. The regional lymph nodes are normal. US/Thyroid IMPRESSION: Dominant solid/cystic nodules in both lobes of the thyroid as described. Correlation with nuclear medicine thyroid scan and uptake recommended. Electronically Signed: Lewis Moncada MD at 9:28 EDT ,
== END | disposition home or self-care (01) ==
LOC: US 14:39
PROVIDERS: PCP Family Medicine; Referring Provider Family Medicine; Visit Provider Family Medicine
DX: E04.1 Nontoxic single thyroid nodule (principal)
CPT/HCPCS: 76536

== ENCOUNTER → 2024-03-20 | Outpatient (CLI) | payer MEDICARE, SELFPAY ==
[2024-03-20 10:28] LABS: Bacteria 0 SEEN /hpf (None Seen); Mucous, Urine 0 SEEN /hpf (<or=2+); Red Blood Cells-Urine 0 SEEN /hpf (0-5); White Blood Cells 0 SEEN /hpf (0-5)
[2024-03-20 12:10] LABS: Color, Urine Yellow (Yellow); Glucose, Dipstick Normal (Normal); Ketone-Dipstick Negative (Negative); Leukocyte Esterase-Dipstick Negative /ul (Negative); Nitrite-Dipstick Negative (Negative); Occult Blood-Urine Negative /ul (Negative); Protein-Dipstick Negative (Negative); Specific Gravity, Urine 1.005 (1.002-1.030); Urine Bilirubin Dipstick Negative (Negative); Urine Clarity Clear (Clear); Urine Urobilinogen Normal (Normal)
[2024-03-20 12:12] LABS: Absolute Lymphocyte Count 2.09 X10^3/uL (0.83-4.51); Absolute Neutrophil Count 5.8 X10^3/uL (2.0-7.7); Basophil# 0.07 X10^3/uL; Basophil% 0.7 % (0-1); Eosinophil# 0.45 X10^3/uL; Eosinophils% 4.8 % (0-5); Hematocrit 38.9 % (40-54); Hemoglobin 12.7 g/dL (13.0-16.5); Lymphocyte # 2.09 X10^3/ul (0.83-4.51); Lymphocyte % 22.2 % (19-41); Mean Corp Hgb Conc 32.6 g/dL (32-36); Mean Corpuscular Hgb 29.3 pg (27.0-32.0); Mean Corpuscular Volume 89.6 fL (80-94); Mean Platelet Vol. 10.6 fl (6.2-12.0); Monocyte# 0.95 X10^3/uL; Monocyte% 10.1 % (0-10); NRBC Flagged by Analyzer 0 % (0-5); Neutrophil # 5.81 X10^3/uL (2.7-7.7); Neutrophil % 61.9 % (47-70); Platelet Count 275 K/mm3 (150-450); RBC Distribution Width CV 12.8 % (11.6-14.6); RBC Distribution Width SD 42.3 fl (35.1-43.9); Red Blood Count 4.34 M/mm3 (4.6-6.2); White Blood Count 9.4 K/mm3 (4.4-11.0)
[2024-03-20 12:17] LABS: Squamous Epithelial Cells - UA 0-5 SEEN /hpf (0-5)
[2024-03-20 12:38] LABS: AST(SGOT) 16 U/L (15-37); Alanine Aminotransfer ALT/SGPT 25 U/L (16-61); Albumin, Serum 3.9 g/dL (3.2-5.0); Alkaline Phosphatase 72 U/L (45-117); Anion Gap 11 (5-15); BUN 14 mg/dL (7-18); BUN/Creat Ratio 14.9 RATIO (10-20); Calcium,Total 9.2 mg/dL (8.5-10.1); Chloride 97 mmol/L (98-107); Cholesterol 127 mg/dL (200); Creatinine, Serum 0.94 mg/dL (0.70-1.30); EST Glomerular Filtration Rate 83 mL/min (>60); Est Glom Filt Rate - Afr Amer 101 mL/min (>60); Globulin 3.8 g/dL (2.2-4.2); Glucose 155 mg/dL (74-106); High Density Lipoprotein 42 mg/dL; Potassium 3.6 mmol/L (3.5-5.1); Protein, Total 7.7 g/dL (6.4-8.2); Sodium Level 135 mmol/L (136-145); Triglycerides 306 mg/dL; Very Low Density Lipoprotein 61 mg/dL (5-40)
== END | disposition home or self-care (01) ==
LOC: MTLAB 10:23
PROVIDERS: PCP Family Medicine; Referring Provider Family Medicine; Visit Provider Family Medicine
DX: E11.69 Type 2 diabetes mellitus with other specified complication (principal)
CPT/HCPCS: 36415; 80053; 80061; 81001; 83036; 85025

== ENCOUNTER → 2024-06-21 | Outpatient (CLI) | payer MEDICARE, SELFPAY ==
[2024-06-21 11:15] LABS: PSA,Total- Diagnostic 4.78 ng/mL (0.00-4.00)
== END | disposition home or self-care (01) ==
LOC: LAB 09:51
PROVIDERS: PCP Family Medicine; Visit Provider Nurse Practitioner
DX: R97.20 Elevated prostate specific antigen [PSA] (principal)
CPT/HCPCS: 36415; 84153

== ENCOUNTER → 2024-07-25 | Outpatient (CLI) | payer MEDICARE, SELFPAY ==
[2024-07-25 10:49] LABS: Bacteria 0 SEEN /hpf (None Seen); Mucous, Urine 0 SEEN /hpf (<or=2+)
[2024-07-25 12:24] LABS: Color, Urine Straw (Yellow); Glucose, Dipstick Normal (Normal); Ketone-Dipstick Negative (Negative); Leukocyte Esterase-Dipstick Negative /ul (Negative); Nitrite-Dipstick Negative (Negative); Occult Blood-Urine Negative /ul (Negative); Protein-Dipstick Negative (Negative); Urine Bilirubin Dipstick Negative (Negative); Urine Clarity Clear (Clear); Urine Urobilinogen Normal (Normal)
[2024-07-25 12:29] LABS: Absolute Lymphocyte Count 2.36 X10^3/uL (0.83-4.51); Absolute Neutrophil Count 3.9 X10^3/uL (2.0-7.7); Basophil# 0.06 X10^3/uL; Basophil% 0.8 % (0-1); Eosinophils% 6.5 % (0-5); Lymphocyte # 2.36 X10^3/ul (0.83-4.51); Lymphocyte % 30.6 % (19-41); Mean Corp Hgb Conc 33.3 g/dL (32-36); Mean Corpuscular Hgb 29.4 pg (27.0-32.0); Mean Corpuscular Volume 88.2 fL (80-94); Mean Platelet Vol. 10.6 fl (6.2-12.0); Monocyte# 0.84 X10^3/uL; Monocyte% 10.9 % (0-10); NRBC Flagged by Analyzer 0 % (0-5); Neutrophil # 3.92 X10^3/uL (2.7-7.7); Neutrophil % 50.9 % (47-70); Platelet Count 253 K/mm3 (150-450); RBC Distribution Width CV 12.6 % (11.6-14.6); RBC Distribution Width SD 40.9 fl (35.1-43.9); Red Blood Count 4.42 M/mm3 (4.6-6.2); White Blood Count 7.7 K/mm3 (4.4-11.0)
[2024-07-25 12:52] LABS: White Blood Cells 0-5 SEEN /hpf (0-5)
[2024-07-25 12:53] LABS: Red Blood Cells-Urine 0-5 SEEN /hpf (0-5); Squamous Epithelial Cells - UA 0-5 SEEN /hpf (0-5)
[2024-07-25 13:31] LABS: Microalbumin,Random Urine 13.1 mg/L (NO RANGE EST.); Microalbumin:Creatinine Ratio 243.5 mg/g CRE
[2024-07-25 14:21] LABS: ALB/GLOB Ratio 1.5 RATIO (0.9-2.4); AST(SGOT) 24 U/L (<=37); Alanine Aminotransfer ALT/SGPT 27 U/L (<=46); Albumin, Serum 4.5 g/dL (3.4-4.8); Alkaline Phosphatase 63 U/L (40-129); Anion Gap 13 (5-15); BUN 16 mg/dL (4-19); BUN/Creat Ratio 18.7 RATIO (10-20); Calcium,Total 9.9 mg/dL (7.6-11.0); Carbon Dioxide 26.1 mmol/L (21.0-32.0); Chloride 95 mmol/L (98-108); Cholesterol 135 mg/dL (<=200); Creatinine, Serum 0.85 mg/dL (0.70-1.20); EST Glomerular Filtration Rate 90 (>60); Glucose 152 mg/dL (70-99); High Density Lipoprotein 47 mg/dL; Low Density Lipoprotein Calc. 47 mg/dL; Protein, Total 7.5 g/dL (5.9-8.4); Sodium Level 133 mmol/L (133-145); Total Bilirubin 0.35 mg/dL (0.00-1.30); Triglycerides 203 mg/dL; Very Low Density Lipoprotein 41 mg/dL (5-40); cholesterol:hdl ratio screen 2.87
[2024-07-25 15:19] LABS: Hemoglobin A1c 8.1 % (<=5.6)
== END | disposition home or self-care (01) ==
LOC: MTLAB 10:44
PROVIDERS: PCP Family Medicine; Referring Provider Family Medicine; Visit Provider Family Medicine
DX: E11.8 Type 2 diabetes mellitus with unspecified complications (principal)
CPT/HCPCS: 36415; 80053; 80061; 81001; 82043; 82570; 83036; 85025

== ENCOUNTER → 2024-08-27 | Outpatient (CLI) | payer MEDICARE, SELFPAY ==
--- NOTE | 2024-08-27 14:49 | RAD_ITS ---
PROCEDURE: CHEST PA AND LATERAL 08/27/2024 REASON FOR EXAM: COUGH TECHNIQUE: Frontal and lateral views of the chest. COMPARISON: Chest x-ray of 01/12/2023. RAD/Chest PA and Lateral IMPRESSION: Left hemidiaphragm elevation appear stable, with stable left basilar atelectasi s and/or scarring, compared with the prior study of 01/12/2023. No new or worsened pneumonic process is seen. No pleural effusion or pneumothorax is evident. The cardiomediastinal silhouette is remarkable for a calcified aorta. No evide nce of cardiomegaly. Mild thoracic spine degenerative changes are seen, along with DISH. Old left rib fractures are again seen. Reading Location: [place] [id number]
== END | disposition home or self-care (01) ==
LOC: MTRAD 14:49
PROVIDERS: PCP Family Medicine; Referring Provider Nurse Practitioner Family; Visit Provider Nurse Practitioner Family
DX: R06.02 Shortness of breath (principal)
CPT/HCPCS: 71046

== ENCOUNTER → 2024-12-07 | Outpatient (CLI) | payer MEDICARE, SELFPAY ==
--- OUTSIDE RECORDS SUMMARY | 2024-12-07 07:19 | XMS RPT_ITS | CCD ---
Author Organization [facility] Care Team Providers Care Entertainment Reporter Name Role Phone RICO, NEY C Unavailable Unavailable RICO, NEY C Unavailable Unavailable RICO, NEY C Unavailable Unavailable NO, DOCTOR ON Unavailable Unavailable NO, DOCTOR ON Unavailable Unavailable RICO, NEY C Unavailable Unavailable RICO, NEY C Unavailable Unavailable NO, DOCTOR ON Unavailable Unavailable RICO, NEY C Unavailable Unavailable NO, DOCTOR ON Unavailable Unavailable Wero Porter Primary Care Provider Wero Porter MD Primary Care Provider Wero Porter MD Primary Care Provider DANIA VILLALPANDO Attending Unavailable WERO PORTER Referring Unavailable WERO PORTER Primary Care Unavailable DANIA VILLALPANDO Attending Unavailable WERO PORTER Primary Care Unavailable WERO PORTER Primary Care Unavailable Dr. Wero Porter MD Primary Care Provider Dr. Wero Porter MD Attending Provider Dr. Wero Porter MD Referring Provider [phone] Arlet Duff Attending Provider [phone] Wero Porter MD Primary Care Provider [phone] Dr. Wero Porter MD Attending Provider Dr. Wero Porter MD Referring Provider Bowen HYDRAULIC RIVETER-CDanielle Attending Provider Bowen HYDRAULIC RIVETER-C, Danielle Referring Provider Wero Porter Primary Care Unavailable Wero Porter Attending Unavailable Wero Porter Referring Unavailable Wero Porter Primary Care Unavailable Wero Porter Attending Unavailable Wero Porter Referring Unavailable Wero Porter Primary Care Unavailable Arlet Duff Attending Unavailable Wero Porter Primary Care Unavailable Wero Porter Attending Unavailable Wero Porter Referring Unavailable [facility]en HYDRAULIC RIVETER, Danielle Attending Unavailable Bowen HYDRAULIC RIVETER, Danielle Referring Unavailable Wero Porter Primary Care Unavailable Wero Porter Primary Care Unavailable Wero Porter Attending Unavailable Wero Poretr Referring Unavailable Allergies Allergy Classification Reported Allergen(s) Allergy Type Date of Onset Reaction(s) Facility (2 sources) lisinopril; Translations: [LISINOPRIL] Drug Allergy 02-11-2010 [facility] Repository (20 sources) Lisinopril Drug Allergy 02-11-2010 Cough [facility] Work Phone: Comment on above: cough (1 source) Lisinopril Drug Allergy 01-21-2020 [facility] Repository Medications Current Medications Medication Drug Class(es) Dates Sig (Normalized) Sig (Original) albuterol 0.83 mg/ml inhalation solution (12 sources) beta2-Adrenergic Agonist Start: 01-12-2023 take 2.5 mg by inhalation every four hours as needed for wheezing Albuterol Sulfate 2.5 mg /3 mL (0.083 %) solution for nebulization Active 2.5 mg INHALATION EVERY 4 HOURS NEEDED January 12, 2023 12:00am Use q4 hours and PRN for wheezing Start: 07-06-2010 take 2 puff(s) by in halation every four hours as needed albuterol HFA 90 mcg/Actuation INHALATION inhaler Indications: Wheezing , Acute bronchitis Inhale 2 Puffs as instructed every 4 hours as needed. 1 Inhaler 11 07/06/2010 Active Comment on above: Inhale 2 Puffs as in structed every 4 hours as needed. amoxicillin 875 mg / clavulanate 125 mg oral tablet (2 sources) Penicillin-class Antibacterial Start: End: take 1 tablet by mouth twice daily amoxicillin-clavul anate potassium (AUGMENTIN) 875-125 mg per tablet Indications: Otorrhea of left ear Take 1 tablet by mouth two times a day for 7 days. 14 tablet 05/17/2024 05/24/2024 Active Start: 01-14-2023 End: 01-19-2023 take 1 tablet by mouth twice daily amoxicillin-clavulanic acid (AUGMENTIN) 875-125 mg per tablet Indications: Bacterial pneumonia Take 1 tablet by mouth two times a day for 5 days. 10 tablet 0 01/14/2023 01/19/2023 Active Comment on above: Take 1 tablet by lily two times a day for 5 days. atorvastatin 10 mg oral tablet (5 sources) HMG-CoA Reductase Inhibitor take 1 tablet by mouth once daily atorvastatin (LIPITOR) 10 mg tablet Take 10 mg by mouth once daily. Active Comment on above: Take 10 mg by mouth once daily. Budesonide / formoterol (5 sources) Corticosteroid, beta2-Adrenergic Agonist take 2 puff(s) by inhalation twice daily budesonide-formoterol (SYMBICORT) 160-4.5 mcg/actuation inhaler Inhale 2 Puffs as instructed twice daily. Active take 2 puff(s) by in halation twice daily budesonide-formoterol (SYMBICORT) 160-4. 5 mcg/actuation inhaler Inhale 2 Puffs as instructed twice daily. 0 Active Comment on above: Inhale 2 Puffs as in structed twice daily. chlorthalidone 25 mg oral tablet (3 sources) Thiazide-like Diuretic Start: 2023 take 1 tablet by mouth once daily chlorthalidone (HYGROTON) 25 mg tablet Take 25 mg by mouth once daily. 07/27/2023 Active cholecalciferol 0.025 mg oral tablet (3 sources) Vitamin D Start: 2018 take 3 tablets by mouth once daily cholecalciferol (VITAMIN D3) 1,000 unit tab tablet Take 3 tablets by mouth once daily. 08/21/2018 Active clindamycin 300 mg oral capsule (1 source) Lincosamide Antibacterial Start: 2023 End: 2023 take 1 capsule by mouth three times daily clindamycin (CLEOCIN) 300 mg capsule Take 1 capsule by mouth three times a day for 7 days. 21 capsule 03/30/2024 04/06/2024 Active doxycycline monohydrate 100 mg oral tablet (1 source) Tetracycline-class Drug Start: 2022 End: 2022 take 1 tablet by mouth twice daily doxycycline monohydrate 100 mg tablet Indications: Bacterial pneumonia Take 1 tablet by mouth two times a day for 5 days. 10 tablet 0 01/14/2023 01/19/2023 Active Comment on above: Take 1 tablet by lily th two times a day for 5 days. finasteride 5 mg oral tablet (3 sources) 5-alpha Reductase Inhibitor take 1 tablet by mouth once daily finasteride (PROSCAR) 5 mg tablet Take 5 mg by mouth once daily. Active gabapentin 300 mg oral capsule (5 sources) Anti-epileptic Agent Start: 2016 gabapentin (NEURONTIN) 300 mg capsule 08/27/2016 Active glipiZIDE 5 mg oral tablet (5 sources) Sulfonylurea Start: 2011 take 1 tablet by mouth four times daily glipiZIDE 5 mg ORAL tablet Indications: Type II or unspecified type diabetes mellitus without mention of complication, uncontrolled Take 1 tablet by mouth four times daily. 360 tablet 3 05/20/2011 Active Comment on above: Take 1 tablet by lily four times daily. ipratropium bromide 0.2 mg/ml inhalation solution (7 sources) Anticholinergic Start: 2022 take 1 mL by inhalation every six hours as needed for wheezing Ipratropium Lebo 0.02 % solution Active 2.5 mL INHALATION EVERY 6 HOURS as needed for shortness of breath or wheezing 62.5 January 12, 2023 12:00am levoFLOXacin 500 mg oral tablet (11 sources) Quinolone Antimicrobial Start: 2022 take 1 tablet by mouth once daily Levofloxacin 500 mg tablet Active 500 mg PO DAILY 7 January 12, 2023 12:00am Comment on above: Take 500 mg by mouth once daily. losartan potassium 100 mg oral tablet (5 sources) Angiotensin 2 Receptor Drew Start: 2010 take 1 tablet by mouth once daily losartan (COZAAR) 100 mg ORAL tablet Indications: Type II or unspecified type diabetes mellitus without mention of complication, uncontrolled Take 1 tablet by mouth once daily. 30 tablet 5 01/07/2011 Active Comment on above: Take 1 tablet by lily once daily. magnesium oxide 420 mg oral tablet (3 sources) Magnesium Oxide 420 mg tab Take by mouth once daily. Active metFORMIN hydrochloride 500 mg oral tablet (5 sources) Biguanide Start: 2011 take 1 tablet by mouth three times daily metFORMIN (GLUCOPHAGE) 500 mg tablet Indications: Type II or unspecified type diabetes mellitus without mention of complication, uncontrolled Take 1 tablet by mouth three times daily. 270 tablet 0 02/11/2012 Active Comment on above: Take 1 tablet by lily th three times daily. Mometasone (2 sources) Corticosteroid Start: 2024 take 2 puff(s) by inhalation twice daily mometasone 200 mcg/actuation HFA Inhale 2 Puffs as instructed two times a day. 04/24/2024 Active ofloxacin 3 mg/ml otic solution (1 source) Quinolone Antimicrobial Start: 2024 End: 2024 ofloxacin (FLOXIN) 0.3 % otic solution Indications: Otorrhea of left ear Use 10 Drops in the left ear once daily for 7 days. 5 mL 05/17/2024 05/24/2024 Active phentermine hydrochloride 37.5 mg oral tablet (5 sources) Sympathomimetic Amine Anorectic Start: 2011 take 1 tablet by mouth once daily before breakfast Phentermine HCl 37.5 mg tablet Indications: Type II or unspecified type diabetes mellitus without mention of complication, uncontrolled , Obesity Take 1 tablet by mouth daily before breakfast. 30 tablet 0 10/25/2011 Active Comment on above: Take 1 tablet by lily th daily before breakfast. predniSONE 20 mg oral tablet (7 sources) Start: 2022 take 3 tablets by mouth once daily Prednisone 20 mg tablet Active 60 mg PO DAILY January 12, 2023 12:00am Start: 01-12-2023 take 60 mg by mouth once daily Prednisone Active 60 MG PO DAILY January 12, 2023 12:00am semaglutide (OZEMPIC SUBCUTANEOUS) (3 sources) semaglutide (OZE MPIC SUBCUTANEOUS) Inject subcutaneously one time a week. Active simvastatin 40 mg oral tablet (5 sources) HMG-CoA Reductase Inhibitor Start: 012 take 1 tablet by mouth once daily at bedtime simvastatin (ZOCOR) 40 mg tablet Indications: Mixed hyperlipidemia Take 1 tablet by mouth daily at bedtime. 90 tablet 3 12/17/2011 Active Comment on above: Take 1 tablet by lily th daily at bedtime. tiotropium 0.018 mg inhalation powder (5 sources) Anticholinergic take 1 capsule by inhalation once daily tiotropium 18 mcg Cap Inhale 18 mcg as instructed once daily. Active Comment on above: Inhale 18 mcg as ins tructed once daily. traMADol hydrochloride 50 mg oral tablet (5 sources) Opioid Agonist Start: 011 take 1 tablet by mouth once daily as needed for pain traMADOL 50 mg ORAL tablet Take 1 tablet by mouth. take daily as needed for pain 0 10/06/2010 Active Comment on above: Take 1 tablet by lily th. take daily as needed for pain traZODone hydrochloride 50 mg oral tablet (3 sources) Serotonin Reuptake Inhibitor take 1 tablet by mouth once daily at bedtime traZODone (DESYREL) 50 mg tablet Take 50 mg by mouth daily at bedtime. Active Completed/Discontinued Medications Medication Drug Class(es) Dates Sig (Normalized) Sig (Original) acetaminophen 325 mg / HYDROcodone bitartrate 5 mg oral tablet (16 sources) Opioid Agonist Start: 01-21-2020 End: 01-24-2020 Hydrocodone-Acetami nophen 1 TABLET tablet Discontinued 1 {tbl} PO EVERY 6 HOURS NEEDED as needed for Pain 01 18January 21, 2020 January 23, 2020 12:00am January 24, 2020 12:02am Start: 01-21-2020 End: 01-24-2020 take 1 tablet by mouth every six hours as needed Hydrocodone-Acetaminophen Discontinued 1 TABLET PO EVERY 6 HOURS NEEDED 01 18January 21, 2020 January 24, 2020 12:02am Problems Active Problems Problem Classification Problem Date Documented Date Episodic/Chronic Anal and rectal conditions (6 sources) Anal abscess; Translations: [Anal abscess] Onset: 05-02-2024 03-30-2024 Episodic Chronic obstructive pulmonary disease and bronchiectasis (20 sources) Chronic obstructive lung disease; Translations: [Chronic obstructive pulmonary disease, unspecified] 01-21-2020 Chronic Diabetes mellitus with complications (7 sources) Type 2 diabetes mellitus; Translations: [Type II or unspecified type diabetes mellitus without mention of complication, uncontrolled] Onset: 08-10-2007 04-13-2021 Chronic Diabetes mellitus without complication (16 sources) Diabetes mellitus; Translations: [Type 2 diabetes mellitus without complications] 01-21-2020 Chronic Diseases of white blood cells (7 sources) Leukocytosis; Translations: [Elevated white blood cell count, unspecified] 01-20-2023 Chronic Disorders of lipid metabolism (20 sources) Hypercholesterolemia; Translations: [Pure hypercholesterolemia, unspecified] Onset: 08-10-2007 2009 Chronic Esophageal disorders (16 sources) Gastroesophageal reflux disease; Translations: [Gastro-esophageal reflux disease without esophagitis] 01-21-2020 Chronic Essential hypertension (20 sources) Hypertensive disorder; Translations: [Essential (primary) hypertension] Onset: 08-10-2007 2009 Chronic Other ear and sense organ disorders (1 source) Otorrhea of left ear; Translations: [Otorrhea, left ear] 05-17-2024 Episodic Other fractures (16 sources) Fracture of rib; Translations: [Fracture of one rib, unspecified side, initial encounter for closed fracture] 01-22-2020 Episodic Other lower respiratory disease (7 sources) Pneumonitis; Translations: [Other disorders of lung] 01-20-2023 Episodic Other lower respiratory disease (1 source) Shortness of breath; Translations: [Shortness of breath] Onset: 08-30-2024 Episodic Pneumonia (except that caused by tuberculosis or sexually transmitted disease) (1 source) Bacterial pneumonia; Translations: [Unspecified bacterial pneumonia] 01-14-2023 Episodic Thyroid disorders (2 sources) Multinodular goiter; Translations: [Nontoxic multinodular goiter] Onset: 12-27-2023 Chronic Past or Other Problems Problem Classification Problem Date Documented Da te Episodic/Chronic Other screening for suspected conditions (not mental disorders or infectious disease) (4 sources) Patient encounter status; Translations: [Encounter for screening for malignant neoplasm of colon] Onset: 05-12-2007 Resolved: 10-09-2009 10-09-2009 Episodic Other skin disorders (3 sources) Sebaceous cyst of skin; Translations: [Sebaceous cyst] Onset: 05-12-2007 Resolved: 10-09-2009 10-09-2009 Episodic Results Test Name Value Interpretation Reference Range Facility Microalb:Creat Ratio,Random URon 10-04-2024 MALB:CREAT 24.3 mg/g CRE [facility] Comment on above: Order Comment: Order Date: 03/29/24 Order Info: [id number] - MIACRE Result Comment: AMENDED REPORT 10/04/24 1053 MALB:CREAT previously reported as: 243.5 mg/g CRE Performed By: #### L 502.0250, L501.9985, L100.0100, L500.4100, L500.4050 #### [facility] [address] [place], [address] Chest PA and Lateralon 08-27 Chest PA and Lateral [facility] [address] [place] [address] Chest PA and Lateral MR#: [id number] Acct: [id number] Name: YOUNG ALBRIGHT Rep #: [id number] : 1945 M 78 From: [place] PCP: Dr. Wero Porter MD Status: REG CLI Study: Chest PA and Lateral Date of Exam: 08/27/24 Exam# [id number] Ordering Dr: Danielle Wiseman NP HYDRAULIC RIVETER-C PROCEDURE: CHEST PA AND LATERAL 08/27/2024 REASON FOR EXAM: COUGH TECHNIQUE: Frontal and lateral views of the chest. COMPARISON: Chest x-ray of 01/12/2023. RAD/Chest PA and Lateral IMPRESSION: Left hemidiaphragm elevation appear stable, with stable left basilar atelectasis and/or scarring, compared with the prior study of 01/12/2023. No new or worsened pneumonic process is seen. No pleural effusion or pneumothorax is evident. The cardiomediastinal silhouette is remarkable for a calcified aorta. No evidence of cardiomegaly. Mild thoracic spine degenerative changes are seen, along with DISH. Old left rib fractures are again seen. Reading Location: [place] [address] CC: HYDRAULIC RIVETER-C Danielle Wiseman; Dr. Wero Porter MD Cooler Operator: Signed Normal [facility] Absolute lymphocyte countOrd ered By: Wero Porter on 07-25-2024 Lymphocytes Auto (Unsp spec) [#/Vol] 2.36 10*3/uL 0.83-4.51 [facility] Absolute neutrophil countOrd ered By: Wero Porter on 07-25-2024 Neutrophils (Bld) [#/Vol] 3.9 10*3/uL 2.0-7.7 [facility] Albumin DL <= 20 mg/L (U) [M ass/Vol]Ordered By: Wero Porter on 07-25-2024 Urine Random Microalbumin 13.1 mg/L NO RANGE EST. [facility] Anion gap in Serum or Plasma Ordered By: Wero Porter on 07-25-2024 Anion gap [Moles/Vol] 13 mmol/L 5-15 [facility] Automated lymphocyte count a s percentage of total leukocytesOrdered By: Wero Porter on 07-25-2024 Lymphocytes/100 WBC Auto (Unsp spec) 30.6 % 19- [facility] BUN/creatinine ratioOrdered By: Wero Porter on 07-25-2024 Urea nitrogen/Creatinine [Mass ratio] 18.7 mg/mg 10-20 [facility] Basophil percentageOrdered B y: Wero Porter on 07-25-2024 Basophils/100 WBC (Bld) 0.8 % 0-1 [facility] Bilirubin Test strip Ql (U)O rdered By: Wero Porter on 07-25-2024 Bilirubin Ql (U) Negative Negative [facility] Bilirubin, totalOrdered By: Wero Porter on 07-25-2024 Bilirubin [Mass/Vol] 0.35 mg/dL 0.00-1.30 [facility] CBC W/Diff, Automatedon Absolute Lymph 2.36 X10 3/uL Normal 0.83-4.51 [facility] Comment on above: Order Comment: Order Date: 03/29/24 Order Info: [id number] - CBCD Performed By: #### L 502.0250, L501.9985, L100.0100, L500.4100, L500.4050 #### [facility] [address] [place], [address] Absolute Neut 3.9 X10 3/uL Normal 2.0-7.7 [facility] Comment on above: Order Comment: Order Date: 03/29/24 Order Info: [id number] - CBCD Performed By: #### L 502.0250, L501.9985, L100.0100, L500.4100, L500.4050 #### [facility] [address] [place], [address] Basophils/100 WBC (Bld) 0.8 % Normal 0-1 [facility] Comment on above: Order Comment: Order Date: 03/29/24 Order Info: 018- - CBCD Performed By: #### L 502.0250, L501.9985, L100.0100, L500.4100, L500.4050 #### [facility] [address] [place], [address] Eosinophils/100 WBC (Bld) 6.5 % High 0-5 [facility] Comment on above: Order Comment: Order Date: 03/29/24 Order Info: 018- - CBCD Performed By: #### L 502.0250, L501.9985, L100.0100, L500.4100, L500.4050 #### [facility] [address] [place], [address] Erythrocyte distribution width (RBC) [Ratio] 12.6 % Normal 11.6-14.6 [facility] Comment on above: Order Comment: Order Date: 03/29/24 Order Info: 018- - CBCD Performed By: #### L 502.0250, L501.9985, L100.0100, L500.4100, L500.4050 #### [facility] [address] [place], [address] Hematocrit (Bld) [Volume fraction] 39.0 % Low 40-54 [facility] Comment on above: Order Comment: Order Date: 03/29/24 Order Info: 018- - CBCD Performed By: #### L 502.0250, L501.9985, L100.0100, L500.4100, L500.4050 #### [facility] [address] [place], [address] Hemoglobin (Bld) [Mass/Vol] 13.0 g/dL Normal 13.0-16.5 [facility] Comment on above: Order Comment: Order Date: 03/29/24 Order Info: 018- - CBCD Performed By: #### L 502.0250, L501.9985, L100.0100, L500.4100, L500.4050 #### [facility] [address] [place], [address] IG% 0.300 Normal 0.0-0.9 [facility] Comment on above: Order Comment: Order Date: 03/29/24 Order Info: [id number] - CBCD Result Comment: IG% - Immature Granulocytes (promyelocytes, myelocytes and metamyelocytes) > 1% indicates that a LEFT SHIFT is Present. Performed By: #### L 502.0250, L501.9985, L100.0100, L500.4100, L500.4050 #### [facility] [address] [place], [address] Lymphocytes/100 WBC (Bld) 30.6 % Normal 19-41 [facility] Comment on above: Order Comment: Order Date: 03/29/24 Order Info: [id number] - CBCD Performed By: #### L 502.0250, L501.9985, L100.0100, L500.4100, L500.4050 #### [facility] [address] [place], [address] MCH (RBC) [Entitic mass] 29.4 pg Normal 27.0-32.0 [facility] Comment on above: Order Comment: Order Date: 03/29/24 Order Info: [id number] - CBCD Performed By: #### L 502.0250, L501.9985, L100.0100, L500.4100, L500.4050 #### [facility] [address] [place], [address] MCHC (RBC) [Mass/Vol] 33.3 g/dL Normal 32-36 [facility] Comment on above: Order Comment: Order Date: 03/29/24 Order Info: [id number] - CBCD Performed By: #### L 502.0250, L501.9985, L100.0100, L500.4100, L500.4050 #### [facility] [address] [place], [address] MCV (RBC) [Entitic vol] 88.2 fL Normal 80-94 [facility] Comment on above: Order Comment: Order Date: 03/29/24 Order Info: 0184- - CBCD Performed By: #### L 502.0250, L501.9985, L100.0100, L500.4100, L500.4050 #### [facility] [address] [place], [address] Monocytes/100 WBC (Bld) 10.9 % High 0-10 [facility] Comment on above: Order Comment: Order Date: 03/29/24 Order Info: 0184- - CBCD Performed By: #### L 502.0250, L501.9985, L100.0100, L500.4100, L500.4050 #### [facility] [address] [place], [address] Neutrophils/100 WBC (Bld) 50.9 % Normal 47-70 [facility] Comment on above: Order Comment: Order Date: 03/29/24 Order Info: 0184-1 - CBCD Performed By: #### L 502.0250, L501.9985, L100.0100, L500.4100, L500.4050 #### [facility] [address] [place], [address] Nucleated RBC (Bld) [#/Vol] 0 10*3/uL Normal 0-5 [facility] Comment on above: Order Comment: Order Date: 03/29/24 Order Info: 0184-1 - CBCD Performed By: #### L 502.0250, L501.9985, L100.0100, L500.4100, L500.4050 #### [facility] [address] [place] [place], [address] Platelet mean volume (Bld) [Entitic vol] 10.6 fL Normal 6.2-12.0 [facility] Comment on above: Order Comment: Order Date: 03/29/24 Order Info: [id number] - CBCD Performed By: #### L 502.0250, L501.9985, L100.0100, L500.4100, L500.4050 #### [facility] [address] [place], [address] Platelets (Bld) [#/Vol] 253 10*3/uL Normal 150-450 [facility] Comment on above: Order Comment: Order Date: 03/29/24 Order Info: [id number] - CBCD Performed By: #### L 502.0250, L501.9985, L100.0100, L500.4100, L500.4050 #### [facility] [address] [place] [place], [address] RBC (Bld) [#/Vol] 4.42 10*6/uL Low 4.6-6.2 [facility] Comment on above: Order Comment: Order Date: 03/29/24 Order Info: [id number] - CBCD Performed By: #### L 502.0250, L501.9985, L100.0100, L500.4100, L500.4050 #### [facility] [address] [place], [address] RDW SD 40.9 fl Normal 35.1-43.9 [facility] Comment on above: Order Comment: Order Date: 03/29/24 Order Info: [id number] - CBCD Performed By: #### L 502.0250, L501.9985, L100.0100, L500.4100, L500.4050 #### [facility] [address] [place], [address] WBC (Bld) [#/Vol] 7.7 10*3/uL Normal 4.4-11.0 [facility] Comment on above: Order Comment: Order Date: 03/29/24 Order Info: [id number] - CBCD Performed By: #### L 502.0250, L501.9985, L100.0100, L500.4100, L500.4050 #### [facility] [address] [place], [address] Calculated very low density lipoprotein (VLDL) cholesterol measurementOrdered By: Wero Porter on 07-25-2024 Calculated very low density lipoprotein (VLDL) cholesterol measurement 41 mg/dL High 5-40 [facility] VLDL Cholesterol 41 mg/dL High 5-40 [facility] Carbon dioxide, total [Moles /volume] in Central venous bloodOrdered By: Wero Porter on 07-25-2024 CO2 [Moles/Vol] 26.1 mmol/L 21.0-32.0 [facility] Chloride assayOrdered By: Erika Porter on 07-25-2024 Chloride [Moles/Vol] 95 mmol/L Low 98-108 [facility] Comprehensive Metabolic Prof ilon 07-25-2024 Albumin [Mass/Vol] 4.5 g/dL Normal 3.4-4.8 [facility] Comment on above: Order Comment: Order Date: 03/29/24 Order Info: [id number] - CMP Order Info: [id number] - LIPID Performed By: #### L 502.0250, L501.9985, L100.0100, L500.4100, L500.4050 #### [facility] [address] [place], [address] Albumin/Globulin [Mass ratio] 1.5 {ratio} Normal 0.9-2.4 [facility] Comment on above: Order Comment: Order Date: 03/29/24 Order Info: [id number] - CMP Order Info: [id number] - LIPID Performed By: #### L 502.0250, L501.9985, L100.0100, L500.4100, L500.4050 #### [facility] [address] [place], [address] ALK PHOS 63 U/L Normal 40-129 [facility] Comment on above: Order Comment: Order Date: 03/29/24 Order Info: [id number] - CMP Order Info: [id number] - LIPID Performed By: #### L 502.0250, L501.9985, L100.0100, L500.4100, L500.4050 #### [facility] [address] [place], [address] ALT [Catalytic activity/Vol] 27 U/L Normal <=46 [facility] Comment on above: Order Comment: Order Date: 03/29/24 Order Info: [id number] - CMP Order Info: [id number] - LIPID Performed By: #### L 502.0250, L501.9985, L100.0100, L500.4100, L500.4050 #### [facility] [address] [place], [address] AST [Catalytic activity/Vol] 24 U/L Normal <=37 [facility] Comment on above: Order Comment: Order Date: 03/29/24 Order Info: [id number] - CMP Order Info: [id number] - LIPID Performed By: #### L 502.0250, L501.9985, L100.0100, L500.4100, L500.4050 #### [facility] [address] [place], [address] Bilirubin [Mass/Vol] 0.35 mg/dL Normal 0.00-1.30 [facility] Comment on above: Order Comment: Order Date: 03/29/24 Order Info: [id number] - CMP Order Info: [id number] - LIPID Performed By: #### L 502.0250, L501.9985, L100.0100, L500.4100, L500.4050 #### [facility] [address] [place], [address] BUN/CRE 18.7 RATIO Normal 10-20 [facility] Comment on above: Order Comment: Order Date: 03/29/24 Order Info: [id number] - CMP Order Info: [id number] - LIPID Performed By: #### L 502.0250, L501.9985, L100.0100, L500.4100, L500.4050 #### [facility] [address] [place], [address] Calcium [Mass/Vol] 9.9 mg/dL Normal 7.6-11.0 [facility] Comment on above: Order Comment: Order Date: 03/29/24 Order Info: [id number] - CMP Order Info: [id number] - LIPID Performed By: #### L 502.0250, L501.9985, L100.0100, L500.4100, L500.4050 #### [facility] [address] [place], [address] Chloride [Moles/Vol] 95 mmol/L Low 98-108 [facility] Comment on above: Order Comment: Order Date: 03/29/24 Order Info: [id number] - CMP Order Info: [id number] - LIPID Performed By: #### L 502.0250, L501.9985, L100.0100, L500.4100, L500.4050 #### [facility] [address] [place], [address] CO2 [Moles/Vol] 26.1 mmol/L Normal 21.0-32.0 [facility] Comment on above: Order Comment: Order Date: 03/29/24 Order Info: [id number] - CMP Order Info: [id number] - LIPID Performed By: #### L 502.0250, L501.9985, L100.0100, L500.4100, L500.4050 #### [facility] [address] [place], [address] Creatinine [Mass/Vol] 0.85 mg/dL Normal 0.70-1.20 [facility] Comment on above: Order Comment: Order Date: 03/29/24 Order Info: [id number] - CMP Order Info: [id number] - LIPID Performed By: #### L 502.0250, L501.9985, L100.0100, L500.4100, L500.4050 #### [facility] [address] [place], [address] GAP 13 Normal 5-15 [facility] Comment on above: Order Comment: Order Date: 03/29/24 Order Info: [id number] - CMP Order Info: [id number] - LIPID Performed By: #### L 502.0250, L501.9985, L100.0100, L500.4100, L500.4050 #### [facility] [address] [place], [address] GFR/1.73 sq M.predicted among non-blacks MDRD (S/P/Bld) [Vol rate/Area] 90 mL/min/{1.73_m2} Normal >60 [facility] Comment on above: Order Comment: Order Date: 03/29/24 Order Info: [id number] - CMP Order Info: [id number] - LIPID Result Comment: mL/m in/1.73m2 CKD-EPI Creatinine Equation (2020) Performed By: #### L 502.0250, L501.9985, L100.0100, L500.4100, L500.4050 #### [facility] [address] [place], [address] Globulin (S) [Mass/Vol] 3.0 g/dL Normal 2.2-4.2 [facility] Comment on above: Order Comment: Order Date: 03/29/24 Order Info: [id number] - CMP Order Info: [id number] - LIPID Performed By: #### L 502.0250, L501.9985, L100.0100, L500.4100, L500.4050 #### [facility] [address] [place], [address] Glucose [Mass/Vol] 152 mg/dL High 70-99 [facility] Comment on above: Order Comment: Order Date: 03/29/24 Order Info: [id number] - CMP Order Info: [id number] - LIPID Performed By: #### L 502.0250, L501.9985, L100.0100, L500.4100, L500.4050 #### [facility] [address] [place], [address] Potassium [Moles/Vol] 4.0 mmol/L Normal 3.3-5.1 [facility] Comment on above: Order Comment: Order Date: 03/29/24 Order Info: [id number] - CMP Order Info: [id number] - LIPID Performed By: #### L 502.0250, L501.9985, L100.0100, L500.4100, L500.4050 #### [facility] [address] [place], [address] Sodium [Moles/Vol] 133 mmol/L Normal 133-145 [facility] Comment on above: Order Comment: Order Date: 03/29/24 Order Info: [id number] - CMP Order Info: [id number] - LIPID Performed By: #### L 502.0250, L501.9985, L100.0100, L500.4100, L500.4050 #### [facility] [address] [place], [address] T PROT 7.5 g/dL Normal 5.9-8.4 [facility] Comment on above: Order Comment: Order Date: 03/29/24 Order Info: [id number] - CMP Order Info: [id number] - LIPID Performed By: #### L 502.0250, L501.9985, L100.0100, L500.4100, L500.4050 #### [facility] [address] [place], [place], [id number] Urea nitrogen [Mass/Vol] 16 mg/dL Normal 4-19 [facility] Comment on above: Order Comment: Order Date: 03/29/24 Order Info: [id number] - CMP Order Info: [id number] - LIPID Performed By: #### L 502.0250, L501.9985, L100.0100, L500.4100, L500.4050 #### [facility] [address] [place], [place], [address] Creatinine Unsp time (U) [Ma ss/Vol]Ordered By: Wero Porter on 07-25-2024 Creatinine (U) [Mass/Vol] 53.80 mg/dL 39.00-259.00 [facility] Eosinophil percentageOrdered By: Wero Porter on 07-25-2024 Eosinophils/100 WBC (Bld) 6.5 % High 0-5 [facility] Epithelial cells.squamous LM Ql (Urine sed)Ordered By: Wero Porter on 07-25-2024 Epithelial cells.squamous LM.HPF (Urine sed) [#/Area] 0 /[HPF] 0-5 [facility] Erythrocyte distribution wid th (RBC) [Ratio]Ordered By: Wero Porter on 07-25-2024 Erythrocyte distribution width (RBC) [Entitic vol] 40.9 fL 35.1-43.9 [facility] Erythrocyte distribution wid th ratioOrdered By: Wero Porter on 07-25-2024 Erythrocyte distribution width (RBC) [Ratio] 12.6 % 11.6-14.6 [facility] Erythrocyte distribution wid th standard deviationOrdered By: Wero Porter on 07-25-2024 Erythrocyte distribution width (RBC) [Ratio] 40.9 fl 35.1-43.9 [facility] GFR/1.73 sq M.predicted rehan g non-blacks MDRD (S/P/Bld) [Vol rate/Area]Ordered By: Wero Porter on 04-09-2025 Estimated GFR (MDRD) Non-Af Amer 90 >60 [facility] Comment on above: mL/min/1.73m2 CKD-EP I Creatinine Equation (2020) Glomerular filtration rate ( GFR) estimation/1.73 sq m using serum, plasma, or whole bOrdered By: Wero Porter on 07-25-2024 GFR/1.73 sq M.predicted among non-blacks MDRD (S/P/Bld) [Vol rate/Area] 90 mL/min/{1.73_m2} >60 [facility] Comment on above: mL/min/1.73m2 CKD-EP I Creatinine Equation (2020) Glucose Ql (U)Ordered By: Erika Porter on 07-25-2024 Urine Glucose (UA) Normal mg/dl Normal [facility] Hematocrit Auto (Bld) [Volum e fraction]Ordered By: Wero Porter on 07-25-2024 Hematocrit (Bld) [Volume fraction] 39.0 % Low 40-54 [facility] Hemoglobin A1con 07-25-2024 HbA1c (Bld) [Mass fraction] 8.1 % Normal <=5.6 [facility] Comment on above: Order Comment: Order Date: 03/29/24 Order Info: [id number] - A1C Performed By: #### L 502.0250, L501.9985, L100.0100, L500.4100, L500.4050 #### [facility] [address] [facility] [place], [place], [id number] Hemoglobin A1c percentageOrd ered By: Wero Porter on 07-25-2024 HbA1c (Bld) [Mass fraction] 8.1 % >5.7 [facility] Hemoglobin measurementOrdere d By: Wero Porter on 07-25-2024 Hemoglobin (Bld) [Mass/Vol] 13.0 g/dL 13.0-16.5 [facility] Immature granulocytes/100 WB C Auto (Bld)Ordered By: Wero Porter on 07-25-2024 Immature granulocytes/100 WBC (Bld) 0.300 % 0.0-0.9 [facility] Comment on above: IG% - Immature Granu locytes (promyelocytes, myelocytes and metamyelocytes) > 1% indicates that a LEFT SHIFT is Present. Ketones Test strip Ql (U)Ord ered By: Wero Porter on 07-25-2024 Ketones Ql (U) Negative Negative [facility] LDL calc ser/plasOrdered By: Wero Porter on 07-25-2024 Cholesterol in LDL [Mass/Vol] 47 mg/dL [facility] Comment on above: Cneyrwojml=026-884 m g/dL & Higher Rzyu=411 mg/dL or greater LDL Cholesterol, Calculated 47 mg/dL [facility] Comment on above: Lpshjpgyyd=607-817 m g/dL & Higher Kuhs=655 mg/dL or greater Laboratory - Chemistry and C hemistry - challengeOrdered By: Wero Porter on 07-25-2024 AST [Catalytic activity/Vol] 24 U/L <38 [facility] Lipid Profileon 07-25-2024 CHOL:HDL 2.87 Normal [facility] Comment on above: Order Comment: Order Date: 03/29/24 Order Info: [id number] - CMP Order Info: [id number] - LIPID Performed By: #### L 502.0250, L501.9985, L100.0100, L500.4100, L500.4050 #### [facility] [address] [place], [address] Cholesterol [Mass/Vol] 135 mg/dL Normal <=200 [facility] Comment on above: Order Comment: Order Date: 03/29/24 Order Info: [id number] - CMP Order Info: [id number] - LIPID Result Comment: Chol esterol level, Desirable <200 mg/dL Borderline high cholesterol 200-239 mg/dL High cholesterol >=240 mg/dL Recommendations of the NCEP Adult Treatment Panel for the following risk-cutoff thresholds for the [place] population. Performed By: #### L 502.0250, L501.9985, L100.0100, L500.4100, L500.4050 #### [facility] [address] [place], [address] Cholesterol in HDL [Mass/Vol] 47 mg/dL Normal [facility] Comment on above: Order Comment: Order Date: 03/29/24 Order Info: [id number] - CMP Order Info: [id number] - LIPID Result Comment: Priyanka onal Cholesterol Education Program (NCEP) guidelines: <40 mg/dL: Low HDL-cholesterol (major risk factor for CHD) >= 60 mg/dL: High HDL-cholesterol (negative risk factor for CHD) HDL-cholesterol is affected by a number of factors, e.g. smoking, exercise, hormones, sex and age. Performed By: #### L 502.0250, L501.9985, L100.0100, L500.4100, L500.4050 #### [facility] [address] [place], [address] Cholesterol in LDL [Mass/Vol] 47 mg/dL Normal [facility] Comment on above: Order Comment: Order Date: 03/29/24 Order Info: [id number] - CMP Order Info: [id number] - LIPID Result Comment: Bord fukchz=966-354 mg/dL Higher Iolg=778 mg/dL or greater Performed By: #### L 502.0250, L501.9985, L100.0100, L500.4100, L500.4050 #### [facility] [address] [place], [address] Cholesterol in VLDL [Mass/Vol] 41 mg/dL High 5-40 [facility] Comment on above: Order Comment: Order Date: 03/29/24 Order Info: [id number] - [facility] Order Info: [id number] - LIPID Performed By: #### L 502.0250, L501.9985, L100.0100, L500.4100, L500.4050 #### [facility] [address] [place], [address] Triglyceride [Mass/Vol] 203 mg/dL High [facility] Comment on above: Order Comment: Order Date: 03/29/24 Order Info: [id number] - CMP Order Info: [id number] - LIPID Result Comment: The drugs N-Acetylcysteine and Metamizole may falsely depress this assay. Normal range: <150 mg/dL Borderline High: 150-199 mg/dL High: 200-499 mg/dL Very High: >500 mg/dL Performed By: #### L 502.0250, L501.9985, L100.0100, L500.4100, L500.4050 #### [facility] [place], [address] Lymphocytes Auto (Unsp spec) [#/Vol]Ordered By: Wero Porter on 07-25-2024 Lymphocytes (Bld) [#/Vol] 2.36 10*3/uL 0.83-4.51 [facility] Lymphocytes/100 WBC Auto (Un sp spec)Ordered By: Wero Porter on 07-25-2024 Lymphocytes/100 WBC (Bld) 30.6 % 19-41 [facility] MCV (mean corpuscular volume ) determinationOrdered By: Wero Porter on 07-25-2024 MCV (RBC) [Entitic vol] 88.2 fL 80-94 [facility] Mean corpuscular hemoglobin (MCH) determinationOrdered By: Wero Porter on 07-25-2024 MCH (RBC) [Entitic mass] 29.4 pg 27.0-32.0 [facility] Mean corpuscular hemoglobin concentration (MCHC) determinationOrdered By: Wero Porter on 07-25-2024 MCHC (RBC) [Mass/Vol] 33.3 g/dL 32-36 [facility] Mean platelet volume determi nationOrdered By: Wero Porter on 07-25-2024 Platelet mean volume (Bld) [Entitic vol] 10.6 fL 6.2-12.0 [facility] Microalbumin/creat ratio urO rdered By: Wero Porter on 07-25-2024 Urine Microalbumin/Creatinine Ratio 243.5 mg/g CRE [facility] Microscopic analysis of urin e for red blood cells (RBC)Ordered By: Wero Porter on 07-25-2024 Microscopic analysis of urine for red blood cells (RBC) 0-5 SEEN /hpf 0-5 [facility] Urine RBC 0-5 SEEN /hpf 0-5 [facility] Monocyte percentageOrdered B y: Wero Porter on 07-25-2024 Monocytes/100 WBC (Bld) 10.9 % High 0-10 [facility] Mucus LM Ql (Urine sed)Order ed By: Wero Porter on 07-25-2024 Mucus Ql (Urine sed) 0 SEEN /hpf [facility] Neutrophil percentageOrdered By: Wero Porter on 07-25-2024 Neutrophils/100 WBC (Bld) 50.9 % 47-70 [facility] Nitrite Test strip Ql (U)Ord ered By: Wero Porter on 07-25-2024 Nitrite Ql (U) Negative Negative [facility] Nucleated red blood cell per centageOrdered By: Wero Porter on 07-25-2024 Nucleated RBC/100 WBC (Bld) [Ratio] 0 % 0-5 [facility] Platelet countOrdered By: Erika Porter on 07-25-2024 Platelets (Bld) [#/Vol] 253 10*3/uL 150-450 [facility] Potassium (Unsp spec) [Mass/ Vol]Ordered By: Wero Porter on 07-25-2024 Potassium [Moles/Vol] 4.0 mmol/L 3.3-5.1 [facility] Potassium measurement (mass/ volume)Ordered By: Wero Porter on 07-25-2024 Potassium (Unsp spec) [Mass/Vol] 4.0 mmol/L 3.3-5.1 [facility] Protein Test strip Ql (U)Ord ered By: Wero Porter on 07-25-2024 Protein Ql (U) Negative Negative [facility] RBC Auto (Bld) [#/Vol]Ordere d By: Wero Porter on 07-25-2024 RBC (Bld) [#/Vol] 4.42 10*6/uL Low 4.6-6.2 [facility] Random urine creatinine westley urement (mass/volume)Ordered By: Wero Porter on 07-25-2024 Creatinine Unsp time (U) [Mass/Vol] 53.80 mg/dL 39.00-259.00 [facility] Screening total cholesterol/ high density lipoprotein (HDL) cholesterol ratioOrdered By: Wero Porter on 07-25-2024 Cholesterol.total/Choles terol in HDL [Mass ratio] 2.87 {ratio} [facility] Serum creatinine measurement (mass/volume)Ordered By: Wero Porter on 07-25-2024 Creatinine [Mass/Vol] 0.85 mg/dL 0.70-1.20 [facility] Serum globulin measurementOr dered By: Wero Porter on 07-25-2024 Globulin (S) [Mass/Vol] 3.0 g/dL 2.2-4.2 [facility] Serum glucose measurement (m ass/volume)Ordered By: Wero Porter on 07-25-2024 Glucose [Mass/Vol] 152 mg/dL High 70-99 [facility] Serum or plasma alanine sams otransferase (ALT) measurementOrdered By: Wero Porter on 07-25-2024 ALT [Catalytic activity/Vol] 27 U/L <47 [facility] Serum or plasma albumin westley urement (mass/volume)Ordered By: Wero Porter on 07-25-2024 Albumin [Mass/Vol] 4.5 g/dL 3.4-4.8 [facility] Serum or plasma albumin/glob ulin mass ratioOrdered By: Wero Porter on 07-25-2024 Albumin/Globulin [Mass ratio] 1.5 {ratio} 0.9-2.4 [facility] Serum or plasma alkaline rafael sphatase measurementOrdered By: Wero Porter on 07-25-2024 ALP [Catalytic activity/Vol] 63 U/L 40-129 [facility] Serum or plasma calcium westley urement (mass/volume)Ordered By: Wero Porter on 07-25-2024 Calcium [Mass/Vol] 9.9 mg/dL 7.6-11.0 [facility] Serum or plasma cholesterol in HDL measurement (mass/volume)Ordered By: Wero Porter on 07-25-2024 Cholesterol in HDL [Mass/Vol] 47 mg/dL >40 [facility] Comment on above: National Cholesterol Education Program (NCEP) guidelines:<40 mg/dL: Low HDL-cholesterol (major risk factor for CHD)>= 60 mg/dL: High HDL-cholesterol (negative risk factor for CHD)HDL-cholesterol is affected by a number of factors, e.g. smoking, exercise, hormones, sex and age. Serum or plasma cholesterol measurement (mass/volume)Ordered By: Wero Porter on 07-25-2024 Cholesterol [Mass/Vol] 135 mg/dL <201 [facility] Comment on above: Cholesterol level, D esirable <200 mg/dLBorderline high cholesterol 200-239 mg/dLHigh cholesterol >=240 mg/dLRecommendations of the NCEP Adult Treatment Panel for the following risk-cutoff thresholds for the [place] population. Serum or plasma urea nitroge n measurement (mass/volume)Ordered By: Wero Porter on 07-25-2024 Urea nitrogen [Mass/Vol] 16 mg/dL 4-19 [facility] Sodium levelOrdered By: Wero Porter on 07-25-2024 Sodium [Moles/Vol] 133 mmol/L 133-145 [facility] Squamous epithelial cells de tection in urine sediment by light microscopyOrdered By: Wero Porter on 07-25-2024 Epithelial cells.squamous LM Ql (Urine sed) 0-5 SEEN /hpf 0-5 [facility] Total proteinOrdered By: Phil Porter on 07-25-2024 Protein [Mass/Vol] 7.5 g/dL 5.9-8.4 [facility] Triglycerides measurementOrd ered By: Wero Porter on 07-25-2024 Triglyceride [Mass/Vol] 203 mg/dL High <199 [facility] Comment on above: The drugs N-Acetylcy steine and Metamizole may falsely depress this assay. Normal range: <150 mg/dLBorderline High: 150-199 mg/dLHigh: 200-499 mg/dLVery High: >500 mg/dL Urinalysis, Completeon 07-25 EPI,SQUAMOUS 0-5 SEEN Normal 0-5 [facility] Comment on above: Order Comment: Urine , Random Performed By: #### L 400.0001 #### [facility] [address] [place], [address] RBC 0-5 SEEN Normal 0-5 [facility] Comment on above: Order Comment: Urine , Random Performed By: #### L 400.0001 #### [facility] [address] [place], [address] WBC 0-5 SEEN Normal 0-5 [facility] Comment on above: Order Comment: Urine , Random Performed By: #### L 400.0001 #### [facility] [address] [place], [address] BACTERIA 0 SEEN Normal None Seen [facility] Comment on above: Order Comment: Urine , Random Performed By: #### L 400.0001 #### [facility] [address] [place], [address] Mucus Ql (Urine sed) 0 SEEN Normal [facility] Comment on above: Order Comment: Urine , Random Performed By: #### L 400.0001 #### [facility] [address] [place], [place], [id number] Urine albumin measurement [facility] detection limit of 20 mg/L or less (mass/volume)Ordered By: Wero Porter on 07-25-2024 Albumin DL <= 20 mg/L (U) [Mass/Vol] 13.1 mg/L NO RANGE EST. [facility] Urine blood detectionOrdered By: Wero Porter on 07-25-2024 Urine Occult Blood Negative Negative [facility] Urine clarityOrdered By: Phil Porter on 07-25-2024 Clarity (U) Clear Clear [facility] Urine color determinationOrd ered By: Wero Porter on 07-25-2024 Color (U) Straw Yellow [facility] Urine glucose detectionOrder ed By: Wero Porter on 07-25-2024 Glucose Ql (U) Normal mg/dl Normal [facility] Urine leukocyte esterase det ection by dipstickOrdered By: Wero Porter on 07-25-2024 Leukocyte esterase Test strip Ql (U) Negative Negative [facility] Urine pHOrdered By: Wero aguero on 07-25-2024 pH (U) 7.0 [pH] 5.0 - 8.0 [facility] Urine sediment bacteria coun t by microscopy (number/high power field)Ordered By: Wero Porter on 04-09-2025 Bacteria LM.HPF (Urine sed) [#/Area] 0 /[HPF] None Seen [facility] Urine specific gravity measu rementOrdered By: Wero Porter on 07-25-2024 Specific gravity (U) [Rel density] 1.010 1.002-1.030 [facility] Urine urobilinogen measureme ntOrdered By: Wero Porter on 07-25-2024 Urobilinogen Ql (U) Normal mg/dl Normal [facility] Urobilinogen Ql (U)Ordered B y: Wero Porter on 07-25-2024 Urine Urobilinogen Normal mg/dl Normal [facility] White blood cell (WBC) count Ordered By: Wero Porter on 07-25-2024 WBC (Bld) [#/Vol] 7.7 10*3/uL 4.4-11.0 [facility] White blood cell countOrdere d By: Wero Porter on 07-25-2024 Urine WBC 0-5 SEEN /hpf 0-5 [facility] White blood cell count 0-5 SEEN /hpf 0-5 [facility] Diagnostic total prostate sp ecific antigen (PSA) measurementOrdered By: Arlet Duff on 06-21-2024 Prostate Specific Antigen Total 4.78 ng/mL High 0.00-4.00 [facility] Comment on above: This test was perfor med using the [employer] tPSA method. Measured values of a patient sample can vary depending on the testing procedure used. PSA values determined on patient samples by different testing procedures cannot be used interchangeably. If there is a change in PSA assays while monitoring therapy, sequential testing should be performed to confirm baseline values. PSA,Total- [employer] PSA, DIAGNOSTIC 4.78 ng/mL High 0.00-4.00 [facility] Comment on above: Result Comment: This test was performed using the [employer] tPSA method. Measured values of a patient??sample can vary depending on the testing procedure used. PSA values determined on patient samples by different testing procedures cannot be used interchangeably. If there is a change in PSA assays while monitoring therapy, sequential testing should be performed to confirm baseline values. Performed By: #### L 502.0250, L501.9985, L100.0100, L500.4100, L500.4050 #### [facility] [place], [address] CNOVon 05-17-2024 CNOV Office Visit (UCTR ) YOUNG ALBRIGHT ([id number]) 1945 M Date Time Provider Department 05/17/24 10:00 AM SHELL GRISSOM [facility] During your visit today, we recorded the following information about you: Temperature Pulse Respiration Blood pressure 97.6 degrees 102/minute 18/minute 158/79 Weight 82.3 kg Shell Grissom APRN.SENIOR ANALYTICAL CHEMIST 05/17/2024 12:46 PM Signed Subjective HPI HPI Young Albright is a 78 year old male who presents today for CC of left ear pain/drainage. This started 2 weeks ago. Has tried otc medicastion for relief. Symptoms are worsened by nothing. Recent uri. Also uses hearing aids regularly. .Patient presents with: Ear Problem: L ear pain and drainage x2 weeks PAST MEDICAL HISTORY Diagnosis Date Backache, unspecified [...] jyothi cyst posterior neck ALLERGIES Lisinopril MEDICATIONS amoxicillin-clavulana te potassium (AUGMENTIN) 875-125 mg per tablet Take 1 tablet by mouth two times a day for 7 days. ofloxacin (FLOXIN) 0.3 % otic solution Use 10 Drops in the left ear once daily for 7 days. mometasone 200 mcg/actuation HFA Inhale 2 Puffs as instructed two times a day. chlorthalidone (HYGROTON) 25 mg tablet Take 25 mg by mouth once daily. finasteride (PROSCAR) 5 mg tablet Take 5 mg by mouth once daily. Magnesium Oxide 420 mg tab Take by mouth once daily. cholecalciferol (VITAMIN D3) 1,000 unit tab tablet Take 3 tablets by mouth once daily. semaglutide (OZEMPIC SUBCUTANEOUS) Inject subcutaneously one time a week. traZODone (DESYREL) 50 mg tablet Take 50 mg by mouth daily at bedtime. levoFLOXacin (LEVAQUIN) 500 mg tablet Take 500 mg by mouth once daily. (Patient not taking: Reported on 03/30/2024) atorvastatin (LIPITOR) 10 mg tablet Take 10 mg by mouth once daily. gabapentin (NEURONTIN) 300 mg capsule (Patient not taking: Reported on 09/25/2021) metFORMIN (GLUCOPHAGE) 500 mg tablet Take 1 tablet by mouth three times daily. simvastatin (ZOCOR) 40 mg tablet Take 1 tablet by mouth daily at bedtime. (Patient not taking: Reported on 09/25/2021) Phentermine HCl 37.5 mg tablet Take 1 tablet by mouth daily before breakfast. (Patient not taking: Reported on 09/25/2021) tiotropium 18 mcg Cap Inhale 18 mcg as instructed once daily. budesonide-formoterol (SYMBICORT) 160-4.5 mcg/actuation inhaler Inhale 2 Puffs as instructed twice daily. (Patient not taking: Reported on 03/30/2024) glipiZIDE 5 mg ORAL tablet Take 1 tablet by mouth four times daily. (Patient not taking: Reported on 09/25/2021) losartan (COZAAR) 100 mg ORAL tablet Take 1 tablet by mouth once daily. traMADOL 50 mg ORAL tablet Take 1 tablet by mouth. take daily as needed for pain albuterol HFA 90 mcg/Actuation INHALATION inhaler Inhale 2 Puffs as instructed every 4 hours as needed. FAMILY HISTORY Problem Relation Age of Onset Diabetes Mother late in life Stroke Brother Colon Cancer Other none Coronary Artery Disease Other none Prostate Cancer Other none Social History Tobacco Use Smoking status: Former Current packs/day: 0.00 Types: Cigarettes Quit date: 04/18/1995 Years since quittin.1 Smokeless tobacco: Former Vaping Use Vaping status: Never Used Substance Use Topics Alcohol use: Not Currently Comment: QUIT 1980 Drug use: Not Currently Comment: USE ON THE 1969' ROS Objective Blood pressure 158/79, pulse 102, temperature 36.4 ?C (97.6 ?F), resp. rate 18, weight 82.3 kg (181 lb 7 oz), SpO2 96%. Physical Exam Constitutional: General: He is not in acute distress. Appearance: He is not toxic-appearing or diaphoretic. HENT: Head: Normocephalic and atraumatic. Right Ear: Hearing, tympanic membrane, ear canal and external ear normal. Left Ear: Hearing and external ear normal. Drainage, swelling and tenderness present. Nose: Nose normal. Mouth/Throat: Lips: [place]. Mouth: Mucous membranes are moist. Pulmonary: Effort: Pulmonary effort is normal. No accessory muscle usage or respiratory distress. Lymphadenopathy: Cervical: No cervical adenopathy. Right cervical: No superficial cervical adenopathy. Left cervical: No superficial cervical adenopathy. Neurological: Mental Status: He is alert and oriented to person, place, and time. ASSESSMENT/PLAN: 1. Otorrhea of left ear - ICD9: 388.60, ICD10: H92.12 Treat for OM and OE F/u with ent if s/s persist - AMOXICILLIN 875 MG-POTASS (more content not included)... Normal [facility] CNOVon 05-02-2024 CNOV Office Visit (GENSWS ) YOUNG ALBRIGHT ([id number]) 1945 M Date Time Provider Department 05/02/24 3:00 PM DANIA VILLALPANDO GENGYPSYS During your visit today, we recorded the following information about you: Pulse Blood pressure 85/minute 150/78 Dania Villalpando MD 05/03/2024 6:54 PM Signed FOLLOW UP VISIT - ABSCESS NAME: Young Albright [facility] NO.: [id number] DATE OF SERVICE: 05/02/2024 : 1945 REFERRING PHYSICIAN: Wero Porter MD, Young is a patient I am following for a perirectal abscess. I performed an incision and drainage of the perirectal abscess on March 30, 2024. The patient notes no complaints of fever since the procedure. Pain has been minimal. The patient denies any drainage from the site. VITALS: Blood pressure 150/78, pulse 85, SpO2 96%. On examination, the incision site is healed with no drainage noted. The packing was removed. Assessment IMPRESSION: Status post incision and drainage of perirectal abscess abscess PLAN: The patient is instructed to keep the wound dry for the next few days but may shower. If there are any problems or signs of worsening wound infection, the patient is to contact me immediately. Dressing should be changed once daily or more often if it becomes soaked. Diagnoses: (K61.0) Anal abscess (primary encounter diagnosis) (K61.1) Perirectal abscess Return to Clinic: The patient is instructed to follow-up with me as needed. Dania Villalpando MD Allergies As of Date: 05/02/2024 Noted Allergy Reaction LISINOPRIL 02/11/2010 3 - Cough Date Reviewed: 03/31/2024 Reviewed by: Dania Villalpando MD - Fully Assessed Reason for Visit: Follow Up [171] Primary Visit Diagnosis:Anal abscess [K61.0] Other Visit Diagnosis:Perirectal abscess [K61.1] Prescriptions as of 05/03/2024 - mometasone 200 mcg/actuation HFA Inhale 2 Puffs as instructed two times a day. - chlorthalidone (HYGROTON) 25 mg tablet Take 25 mg by mouth once daily. - finasteride (PROSCAR) 5 mg tablet Take 5 mg by mouth once daily. - Magnesium Oxide 420 mg tab Take by mouth once daily. - cholecalciferol (VITAMIN D3) 1,000 unit tab tablet Take 3 tablets by mouth once daily. - semaglutide (OZEMPIC SUBCUTANEOUS) Inject subcutaneously one time a week. - traZODone (DESYREL) 50 mg tablet Take 50 mg by mouth daily at bedtime. - levoFLOXacin (LEVAQUIN) 500 mg tablet Take 500 mg by mouth once daily. - atorvastatin (LIPITOR) 10 mg tablet Take 10 mg by mouth once daily. - gabapentin (NEURONTIN) 300 mg capsule - metFORMIN (GLUCOPHAGE) 500 mg tablet Take 1 tablet by mouth three times daily. - simvastatin (ZOCOR) 40 mg tablet Take 1 tablet by mouth daily at bedtime. - Phentermine HCl 37.5 mg tablet Take 1 tablet by mouth daily before breakfast. - tiotropium 18 mcg Cap Inhale 18 mcg as instructed once daily. - budesonide-formoterol (SYMBICORT) 160-4.5 mcg/actuation inhaler Inhale 2 Puffs as instructed twice daily. - glipiZIDE 5 mg ORAL tablet Take 1 tablet by mouth four times daily. - losartan (COZAAR) 100 mg ORAL tablet Take 1 tablet by mouth once daily. - traMADOL 50 mg ORAL tablet Take 1 tablet by mouth. take daily as needed for pain - albuterol HFA 90 mcg/Actuation INHALATION inhaler Inhale 2 Puffs as instructed every 4 hours as needed. Problem List As Of Date 05/02/2024 Noted Resolved Special Screening for Malignant Neoplasms, [place]*05/12/2007 10/09/2009 Sebaceous Cyst [L72.3] 05/12/2007 10/09/2009 Mixed Hyperlipidemia [E78.2] 08/10/2007 Type II or unspecified type diabetes mellitus w*08/10/2007 Essential Hypertension, Benign [I10] 08/10/2007 Letter Text Encounter Status:Closed by DANIA VILLALPANDO on 05/03/24 [facility] Bacteria Wnd Culton 03-30-20 24 Bacteria identified Cx Nom (Wound) ORGANISM ID: 1 Few Enterococcus faecalis Cephalosporins, clindamycin, and TMP-SMX are not effective for the treatment of enterococcal infections. GRAM STAIN: No organisms seen No Polymorphonuclear Leukocytes ORGANISM ID: 1 (ENTEROCOCCUS FAECALIS) ------ ANTIBIOTIC INTERPRETATION HARISH STATUS REFERENCE RANGE ------ Ampicillin S <=2 F Susceptible <=8 , Resistant >8 Vancomycin S 1 F Susceptible <=4 , Intermediate >4 , Resistant >16 Abnormal [facility] Comment on above: Performed By: #### 6 [id number] #### [facility] CLIA [id number] [address] [place] [address] [facility] CNOVon 03-30-2024 CNOV Office Visit (GENSWS ) YOUNG ALBRIGHT ([id number]) 1945 M Date Time Provider Department 03/30/24 11:30 AM DANIA VILLALPANDO GENSWS During your visit today, we recorded the following information about you: Temperature Pulse Blood pressure 97.5 degrees 81/minute 144/78 Lukasz Garcia MA 03/31/2024 7:04 AM Signed REVIEW OF SYSTEMS: General: The patient denies fatigue, denies weight loss, denies weight gain, denies feeling hot, and denies feelings of cold. Eyes: The patient denies glaucoma, denies eye injury/surgery, wears glasses or contacts. Ear/Nose/Throat: The patient denies allergies, denies hayfever, denies ear infections, and denies bloody noses. Cardiovascular: The patient denies chest pain, denies heart disease, denies high blood pressure,denies cardiac stent, denies prior heart attack, denies irregular heart beat, denies high cholesterol, denies poor circulation, denies heart failure, other cardiac issues, NOTES claudication, denies cold feet, denies peripheral arterial stent. Respiratory: The patient denies tuberculosis, denies pneumonia, denies frequent cough, denies pulmonary embolism, NOTES shortness of breath, and denies coughing up blood. Gastrointestinal: The patient denies difficulty swallowing, denies acid reflux, denies ulcers, denies vomiting, denies jaundice/hepatitis, denies gallbladder problems, denies black or tarry stools, denies hemorrhoids, denies bleeding from rectum, denies diverticulitis, NOTES constipation, denies diarrhea, denies loss of stool [...] diseases. Musculoskeletal: The patient denies back pain/injury, denies back problems, denies sciatica, denies knee/foot trouble, denies arthritis, or denies gout. When was patient's last Mammogram screening? N/A Last Colonoscopy: N/A MERRICK Kim Billie, RN 03/31/2024 7:04 AM Signed UNIVERSAL PROTOCOL / SAFETY CHECKLIST Procedure to be Performed: Incision and drainage of perirectal abscess Sign In: A Moment of CARE was completed. Personnel directly involved with the procedure wore the appropriate PPE (Personal Protective Equipment). No special equipment needed. Patient/Surrogate Stated/Verified: PATIENT VERIFIED(optional for EMERGENT procedures): Patient name, Date of , Relevant allergies, and The intended procedure Time Out Communication: Intended patient and procedure match the source documents. Consent documented and matches the intended procedure. No relevant labs, photos, and/or imaging studies were applicable for review. Correct side/site marked and visible. Medications required for procedure verified. No fire risk assessment and interventions applicable. No implant(s) inserted. Sign Out: SIGN OUT (optional for EMERGENT procedures): No specimen collected. All instruments, equipment, possible retained foreign bodies accounted for. Post-procedure follow-up management communicated and Plan of Care Visit completed when applicable. KAY Rojas Billie, RN 03/30/2024 12:17 PM Signed The following instructions are important for you related to your office visit today with the [facility] General Surgeons. Instructions After I AND D We sent an antibiotic to your pharmacy. You are instructed to remove packing tomorrow. If the dressing becomes soaked or had significant drainage, the dressing should be changed. If there is minor bleeding from this skin edge, you should hold pressure on the incision. If there is continued bleeding, you should contact our office immediately. Wash the wound with gentle soap and water. You may shower. The wound should not be immersed in a pool, bathtub, or even hot tub. If the wound shows signs of redness, inflammation, or purulent drainage, you should contact our office immediately. If you note any additional difficulties, questions, or concerns, you should contact our office immediately @ [phone] and ask to be transferred to the General Surgery department. Dania Villalpando MD 03/31/ (more content not included)... Normal [facility] Absolute neutrophil countOrd ered By: Wero Porter on 03-20-2024 Neutrophils (Bld) [#/Vol] 5.8 10*3/uL 2.0-7.7 [facility] Albumin to globulin ratioOrd ered By: Wero Porter on 03-20-2024 Albumin/Globulin [Mass ratio] 1.0 {ratio} 0.9-2.4 [facility] Basophil percentageOrdered B y: Wero Porter on 03-20-2024 Basophils/100 WBC (Bld) 0.7 % [facility] Test strip Ql (U)O rdered By: Wero Porter on 03-20-2024 Bilirubin Ql (U) Negative Negative [facility] Bilirubin, totalOrdered By: Wero Porter on 03-20-2024 Bilirubin [Mass/Vol] 0.50 mg/dL 0.20-1.00 [facility] Comment on above: For patients on eltr ombopag therapy, use of Dimension [place] TBIL is not recommended. Blood urea nitrogen (BUN)/cr eatinine ratioOrdered By: Wero Porter on 03-20-2024 Urea nitrogen/Creatinine [Mass ratio] 14.9 mg/mg 10-20 [facility] CBC W/Diff, Automatedon Absolute Lymph 2.09 X10 3/uL Normal 0.83-4.51 [facility] Comment on above: Order Comment: Order Date: 03/29/24 Order Info: 0779-1 - MIACRE Performed By: #### L 502.0250, L501.9985, L100.0100, L500.4100, L500.4050 #### [facility] [address] [place], [address] Absolute Neut 5.8 X10 3/uL Normal 2.0-7.7 [facility] Comment on above: Order Comment: Order Date: 03/29/24 Order Info: 0779-1 - MIACRE Performed By: #### L 502.0250, L501.9985, L100.0100, L500.4100, L500.4050 #### [facility] [address] [place], [address] Basophils/100 WBC (Bld) 0.7 % Normal 0-1 [facility] Comment on above: Order Comment: Order Date: 03/29/24 Order Info: 0779-1 - MIACRE Performed By: #### L 502.0250, L501.9985, L100.0100, L500.4100, L500.4050 #### [facility] [address] [place], [address] Eosinophils/100 WBC (Bld) 4.8 % Normal 0-5 [facility] Comment on above: Order Comment: Order Date: 03/29/24 Order Info: 0779-1 - MIACRE Performed By: #### L 502.0250, L501.9985, L100.0100, L500.4100, L500.4050 #### [facility] [address] [place], [address] Erythrocyte distribution width (RBC) [Ratio] 12.8 % Normal 11.6-14.6 [facility] Comment on above: Order Comment: Order Date: 03/29/24 Order Info: 0779-1 - MIACRE Performed By: #### L 502.0250, L501.9985, L100.0100, L500.4100, L500.4050 #### [facility] [address] [place], [address] Hematocrit (Bld) [Volume fraction] 38.9 % Low 40-54 [facility] Comment on above: Order Comment: Order Date: 03/29/24 Order Info: 0779-1 - MIACRE Performed By: #### L 502.0250, L501.9985, L100.0100, L500.4100, L500.4050 #### [facility] [address] [place], [address] Hemoglobin (Bld) [Mass/Vol] 12.7 g/dL Low 13.0-16.5 [facility] Comment on above: Order Comment: Order Date: 03/29/24 Order Info: 0779-1 - MIACRE Performed By: #### L 502.0250, L501.9985, L100.0100, L500.4100, L500.4050 #### [facility] [address] [place], [address] IG% 0.300 Normal 0.0-0.9 [facility] Comment on above: Order Comment: Order Date: 03/29/24 Order Info: 0779-1 - MIACRE Result Comment: IG% - Immature Granulocytes (promyelocytes, myelocytes and metamyelocytes) > 1% indicates that a LEFT SHIFT is Present. Performed By: #### L 502.0250, L501.9985, L100.0100, L500.4100, L500.4050 #### [facility] [address] [place], [address] Lymphocytes/100 WBC (Bld) 22.2 % Normal 19-41 [facility] Comment on above: Order Comment: Order Date: 03/29/24 Order Info: 0779-1 - MIACRE Performed By: #### L 502.0250, L501.9985, L100.0100, L500.4100, L500.4050 #### [facility] [address] [place], [address] MCH (RBC) [Entitic mass] 29.3 pg Normal 27.0-32.0 [facility] Comment on above: Order Comment: Order Date: 03/29/24 Order Info: 0779-1 - MIACRE Performed By: #### L 502.0250, L501.9985, L100.0100, L500.4100, L500.4050 #### [facility] [address] [place], [address] MCHC (RBC) [Mass/Vol] 32.6 g/dL Normal 32-36 [facility] Comment on above: Order Comment: Order Date: 03/29/24 Order Info: 0779-1 - MIACRE Performed By: #### L 502.0250, L501.9985, L100.0100, L500.4100, L500.4050 #### [facility] [address] [place], [address] MCV (RBC) [Entitic vol] 89.6 fL Normal 80-94 [facility] Comment on above: Order Comment: Order Date: 03/29/24 Order Info: 0779-1 - MIACRE Performed By: #### L 502.0250, L501.9985, L100.0100, L500.4100, L500.4050 #### [facility] [address] [place], [address] Monocytes/100 WBC (Bld) 10.1 % High 0-10 [facility] Comment on above: Order Comment: Order Date: 03/29/24 Order Info: 0779-1 - MIACRE Performed By: #### L 502.0250, L501.9985, L100.0100, L500.4100, L500.4050 #### [facility] [address] [place], [address] Neutrophils/100 WBC (Bld) 61.9 % Normal 47-70 [facility] Comment on above: Order Comment: Order Date: 03/29/24 Order Info: 0779-1 - MIACRE Performed By: #### L 502.0250, L501.9985, L100.0100, L500.4100, L500.4050 #### [facility] [address] [place], [address] Nucleated RBC (Bld) [#/Vol] 0 10*3/uL Normal 0-5 [facility] Comment on above: Order Comment: Order Date: 03/29/24 Order Info: 0779-1 - MIACRE Performed By: #### L 502.0250, L501.9985, L100.0100, L500.4100, L500.4050 #### [facility] [address] [place], [address] Platelet mean volume (Bld) [Entitic vol] 10.6 fL Normal 6.2-12.0 [facility] Comment on above: Order Comment: Order Date: 03/29/24 Order Info: 0779-1 - MIACRE Performed By: #### L 502.0250, L501.9985, L100.0100, L500.4100, L500.4050 #### [facility] [address] [place], [address] Platelets (Bld) [#/Vol] 275 10*3/uL Normal 150-450 [facility] Comment on above: Order Comment: Order Date: 03/29/24 Order Info: 0779-1 - MIACRE Performed By: #### L 502.0250, L501.9985, L100.0100, L500.4100, L500.4050 #### [facility] [address] [place], [address] RBC (Bld) [#/Vol] 4.34 10*6/uL Low 4.6-6.2 [facility] Comment on above: Order Comment: Order Date: 03/29/24 Order Info: 0779-1 - MIACRE Performed By: #### L 502.0250, L501.9985, L100.0100, L500.4100, L500.4050 #### [facility] [address] [place], [address] RDW SD 42.3 fl Normal 35.1-43.9 [facility] Comment on above: Order Comment: Order Date: 03/29/24 Order Info: 0779-1 - MIACRE Performed By: #### L 502.0250, L501.9985, L100.0100, L500.4100, L500.4050 #### [facility] [address] [place], [address] WBC (Bld) [#/Vol] 9.4 10*3/uL Normal 4.4-11.0 [facility] Comment on above: Order Comment: Order Date: 03/29/24 Order Info: 0779-1 - MIACRE Performed By: #### L 502.0250, L501.9985, L100.0100, L500.4100, L500.4050 #### [facility] [address] [place], [address] Carbon dioxide measurementOr dered By: Wero Porter on 03-20-2024 CO2 [Moles/Vol] 27.0 mmol/L 21.0-32.0 [facility] Chloride measurementOrdered By: Wero Porter on 03-20-2024 Chloride [Moles/Vol] 97 mmol/L Low 98-107 [facility] Comprehensive Metabolic Prof ilon 03-20-2024 Albumin [Mass/Vol] 3.9 g/dL Normal 3.2-5.0 [facility] Comment on above: Order Comment: Order Date: 03/29/24 Order Info: 0779-1 - MIACRE Performed By: #### L 502.0250, L501.9985, L100.0100, L500.4100, L500.4050 #### [facility] [address] [place], [address] Albumin/Globulin [Mass ratio] 1.0 {ratio} Normal 0.9-2.4 [facility] Comment on above: Order Comment: Order Date: 03/29/24 Order Info: 0779-1 - MIACRE Performed By: #### L 502.0250, L501.9985, L100.0100, L500.4100, L500.4050 #### [facility] [address] [place], [address] ALK P 72 U/L Normal 45-117 [facility] Comment on above: Order Comment: Order Date: 03/29/24 Order Info: 0779-1 - MIACRE Performed By: #### L 502.0250, L501.9985, L100.0100, L500.4100, L500.4050 #### [facility] [address] [place], [address] ALT [Catalytic activity/Vol] 25 U/L Normal 16-61 [facility] Comment on above: Order Comment: Order Date: 03/29/24 Order Info: 0779-1 - MIACRE Performed By: #### L 502.0250, L501.9985, L100.0100, L500.4100, L500.4050 #### [facility] [address] [place], [address] AST [Catalytic activity/Vol] 16 U/L Normal 15-37 [facility] Comment on above: Order Comment: Order Date: 03/29/24 Order Info: 0779-1 - MIACRE Performed By: #### L 502.0250, L501.9985, L100.0100, L500.4100, L500.4050 #### [facility] [address] [place], [address] Bilirubin [Mass/Vol] 0.50 mg/dL Normal 0.20-1.00 [facility] Comment on above: Order Comment: Order Date: 03/29/24 Order Info: 0779-1 - MIACRE Result Comment: For patients on eltrombopag therapy, use of Dimension [place] TBIL is not recommended. Performed By: #### L 502.0250, L501.9985, L100.0100, L500.4100, L500.4050 #### [facility] [address] [place], [address] BUN/CRE 14.9 RATIO Normal 10-20 [facility] Comment on above: Order Comment: Order Date: 03/29/24 Order Info: 0779-1 - MIACRE Performed By: #### L 502.0250, L501.9985, L100.0100, L500.4100, L500.4050 #### [facility] [address] [place], [address] CA,Total 9.2 mg/dL Normal 8.5-10.1 [facility] Comment on above: Order Comment: Order Date: 03/29/24 Order Info: 0779-1 - MIACRE Performed By: #### L 502.0250, L501.9985, L100.0100, L500.4100, L500.4050 #### [facility] [address] [place], [address] Chloride [Moles/Vol] 97 mmol/L Low 98-107 [facility] Comment on above: Order Comment: Order Date: 03/29/24 Order Info: 0779-1 - MIACRE Performed By: #### L 502.0250, L501.9985, L100.0100, L500.4100, L500.4050 #### [facility] [address] [place], [address] CO2 [Moles/Vol] 27.0 mmol/L Normal 21.0-32.0 [facility] Comment on above: Order Comment: Order Date: 03/29/24 Order Info: 0779-1 - MIACRE Performed By: #### L 502.0250, L501.9985, L100.0100, L500.4100, L500.4050 #### [facility] [address] [place], [address] Creatinine [Mass/Vol] 0.94 mg/dL Normal 0.70-1.30 [facility] Comment on above: Order Comment: Order Date: 03/29/24 Order Info: 0779-1 - MIACRE Result Comment: The validity of the calculated GFR GFRAA in patients over 70 years has not been determined. Clinical correlation is essential. Performed By: #### L 502.0250, L501.9985, L100.0100, L500.4100, L500.4050 #### [facility] [address] [place], [address] EST GFR - AA 101 mL/min Normal >60 [facility] Comment on above: Order Comment: Order Date: 03/29/24 Order Info: 0779-1 - MIACRE Result Comment: Afri can [place] GFR Calc Performed By: #### L 502.0250, L501.9985, L100.0100, L500.4100, L500.4050 #### [facility] [address] [place], [address] GAP 11 Normal 5-15 [facility] Comment on above: Order Comment: Order Date: 03/29/24 Order Info: 0779-1 - MIACRE Performed By: #### L 502.0250, L501.9985, L100.0100, L500.4100, L500.4050 #### [facility] [address] [place], [address] GFR/1.73 sq M.predicted among non-blacks MDRD (S/P/Bld) [Vol rate/Area] 83 mL/min/{1.73_m2} Normal >60 [facility] Comment on above: Order Comment: Order Date: 03/29/24 Order Info: 0779-1 - MIACRE Result Comment: Non- GFR Calc Performed By: #### L 502.0250, L501.9985, L100.0100, L500.4100, L500.4050 #### [facility] [address] [place], [address] Globulin (S) [Mass/Vol] 3.8 g/dL Normal 2.2-4.2 [facility] Comment on above: Order Comment: Order Date: 03/29/24 Order Info: 0779-1 - MIACRE Performed By: #### L 502.0250, L501.9985, L100.0100, L500.4100, L500.4050 #### [facility] [address] [place], [address] Glucose [Mass/Vol] 155 mg/dL High 74-106 [facility] Comment on above: Order Comment: Order Date: 03/29/24 Order Info: 0779-1 - MIACRE Result Comment: Fast ing Glucose result greater than or equal to 126 mg/dL suggests DIABETES MELLITUS per A.D.A. criteria. Performed By: #### L 502.0250, L501.9985, L100.0100, L500.4100, L500.4050 #### [facility] [address] [place], [address] Potassium [Moles/Vol] 3.6 mmol/L Normal 3.5-5.1 [facility] Comment on above: Order Comment: Order Date: 03/29/24 Order Info: 0779-1 - MIACRE Performed By: #### L 502.0250, L501.9985, L100.0100, L500.4100, L500.4050 #### [facility] [address] [place], [address] Sodium [Moles/Vol] 135 mmol/L Low 136-145 [facility] Comment on above: Order Comment: Order Date: 03/29/24 Order Info: 0779-1 - MIACRE Performed By: #### L 502.0250, L501.9985, L100.0100, L500.4100, L500.4050 #### [facility] [address] [place], [address] T PROT 7.7 g/dL Normal 6.4-8.2 [facility] Comment on above: Order Comment: Order Date: 03/29/24 Order Info: 0779-1 - MIACRE Performed By: #### L 502.0250, L501.9985, L100.0100, L500.4100, L500.4050 #### [facility] [address] [place], [address] Urea nitrogen [Mass/Vol] 14 mg/dL Normal 7-18 [facility] Comment on above: Order Comment: Order Date: 03/29/24 Order Info: 0779-1 - MIACRE Performed By: #### L 502.0250, L501.9985, L100.0100, L500.4100, L500.4050 #### [facility] [address] [place], [address] Eosinophil percentageOrdered By: Wero Porter on 03-20-2024 Eosinophils/100 WBC (Bld) 4.8 % 0-5 [facility] Epithelial cells.squamous LM Ql (Urine sed)Ordered By: Wero Porter on 03-20-2024 Epithelial cells.squamous LM.HPF (Urine sed) [#/Area] 0 /[HPF] 0-5 [facility] Erythrocyte distribution wid th ratioOrdered By: Wero Porter on 03-20-2024 Erythrocyte distribution width (RBC) [Ratio] 12.8 % 11.6-14.6 [facility] Erythrocyte distribution wid th standard deviationOrdered By: Wero Porter on 03-20-2024 Erythrocyte distribution width (RBC) [Entitic vol] 42.3 fL 35.1-43.9 [facility] Estimated glomerular filtrat ion rate (GFR) AmericanOrdered By: Wero Porter on 03-20-2024 Estimated GFR (MDRD) Amer 101 mL/min >60 [facility] Comment on above: GFR Calc Glomerular filtration rate ( GFR) estimationOrdered By: Wero Porter on 03-20-2024 Estimated GFR (MDRD) Non-Af Amer 83 mL/min >60 [facility] Comment on above: Non- GFR Calc Glucose Ql (U)Ordered By: Erika Porter on 03-20-2024 Urine Glucose (UA) Normal mg/dl Normal [facility] Glucose measurementOrdered B y: Wero Porter on 03-20-2024 Glucose [Mass/Vol] 155 mg/dL High 74-106 [facility] Comment on above: Fasting Glucose resu lt greater than or equal to 126 mg/dL suggests DIABETES MELLITUS per A.D.A. criteria. Hematocrit Auto (Bld) [Volum e fraction]Ordered By: Wero Porter on 03-20-2024 Hematocrit (Bld) [Volume fraction] 38.9 % Low 40-54 [facility] Hemoglobin A1con 03-20-2024 HbA1c (Bld) [Mass fraction] 7.0 % High 3.8-5.6 [facility] Comment on above: Order Comment: Order Date: 03/29/24 Order Info: 0779-1 - MIACRE Result Comment: Norm al < 5.7 % Prediabetic 5.7 - 6.4 % Diabetic >or= 6.5 % Please note range changes. Performed By: #### L 502.0250, L501.9985, L100.0100, L500.4100, L500.4050 #### [facility] [place], [address] Hemoglobin A1c percentageOrd ered By: Wero Porter on 03-20-2024 HbA1c (Bld) [Mass fraction] 7.0 % High 3.8-5.6 [facility] Comment on above: Normal < 5.7 % Predi abetic 5.7 - 6.4 % Diabetic >or= 6.5 % Please note range changes. Hemoglobin measurementOrdere d By: Wero Porter on 03-20-2024 Hemoglobin (Bld) [Mass/Vol] 12.7 g/dL Low 13.0-16.5 [facility] High density lipoprotein (HD L) measurementOrdered By: Wero Porter on 03-20-2024 Cholesterol in HDL [Mass/Vol] 42 mg/dL >40 [facility] Comment on above: The drugs N-Acetylcy steine and Metamizole may falsely depress this assay. Reference Range HDL <40 mg/dL Low HDL Cholesterol HDL >or= 60 mg/dL High HDL Cholesterol Immature granulocytes/100 WB C Auto (Bld)Ordered By: Wero Porter on 03-20-2024 Immature granulocytes/100 WBC (Bld) 0.300 % 0.0-0.9 [facility] Comment on above: IG% - Immature Granu locytes (promyelocytes, myelocytes and metamyelocytes) > 1% indicates that a LEFT SHIFT is Present. Ketones Test strip Ql (U)Ord ered By: Wero Porter on 03-20-2024 Ketones Ql (U) Negative Negative [facility] - Chemistry and C hemistry - challengeOrdered By: Wero Porter on 03-20-2024 AST [Catalytic activity/Vol] 16 U/L 15-37 [facility] Lipid Profileon 03-20-2024 Cholesterol [Mass/Vol] 127 mg/dL Normal 200 [facility] Comment on above: Order Comment: Order Date: 03/29/24 Order Info: 0779-1 - MIACRE Result Comment: <200 mg/dL Desirable 200-240 mg/dL Borderline >240 mg/dL High Risk Performed By: #### L 502.0250, L501.9985, L100.0100, L500.4100, L500.4050 #### [facility] [address] [place], [address] Cholesterol in HDL [Mass/Vol] 42 mg/dL Normal [facility] Comment on above: Order Comment: Order Date: 03/29/24 Order Info: 0779-1 - MIACRE Result Comment: The drugs N-Acetylcysteine and Metamizole may falsely depress this assay. Reference Range HDL <40 mg/dL Low HDL Cholesterol HDL >or= 60 mg/dL High HDL Cholesterol Performed By: #### L 502.0250, L501.9985, L100.0100, L500.4100, L500.4050 #### [facility] [address] [place], [address] Cholesterol in LDL [Mass/Vol] 24 mg/dL Normal 0-130 [facility] Comment on above: Order Comment: Order Date: 03/29/24 Order Info: 0779-1 - MIACRE Performed By: #### L 502.0250, L501.9985, L100.0100, L500.4100, L500.4050 #### [facility] [address] [place], [address] Cholesterol in VLDL [Mass/Vol] 61 mg/dL High 5-40 [facility] Comment on above: Order Comment: Order Date: 03/29/24 Order Info: 0779-1 - MIACRE Performed By: #### L 502.0250, L501.9985, L100.0100, L500.4100, L500.4050 #### [facility] [address] [place], [address] Triglyceride [Mass/Vol] 306 mg/dL High W [facility] Comment on above: Order Comment: Order Date: 03/29/24 Order Info: 0779-1 - MIACRE Result Comment: The drugs N-Acetylcysteine and Metamizole may falsely depress this assay. Serum Triglycerides Reference Interval Normal <150 mg/dL Borderline high 150 - 199 mg/dL High 200 - 499 mg/dL Very High > or = 500 mg/dL Performed By: #### L 502.0250, L501.9985, L100.0100, L500.4100, L500.4050 #### [facility] [address] [place], [address] Low density lipoprotein (LDL ) cholesterol measurementOrdered By: Wero Porter on 03-20-2024 Cholesterol in LDL [Mass/Vol] 24 mg/dL 0-130 [facility] Lymphocytes Auto (Unsp spec) [#/Vol]Ordered By: Wero Porter on 03-20-2024 Lymphocytes (Bld) [#/Vol] 2.09 10*3/uL 0.83-4.51 [facility] Lymphocytes/100 WBC Auto (Un sp spec)Ordered By: Wero Porter on 03-20-2024 Lymphocytes/100 WBC (Bld) 22.2 % 19-41 [facility] MCV (mean corpuscular volume ) determinationOrdered By: Wero Porter on 03-20-2024 MCV (RBC) [Entitic vol] 89.6 fL 80-94 [facility] Mean corpuscular hemoglobin (MCH) determinationOrdered By: Wero Porter on 03-20-2024 MCH (RBC) [Entitic mass] 29.3 pg 27.0-32.0 [facility] Mean corpuscular hemoglobin concentration (MCHC) determinationOrdered By: Wero Porter on 03-20-2024 MCHC (RBC) [Mass/Vol] 32.6 g/dL 32-36 [facility] Mean platelet volume determi nationOrdered By: Wero Porter on 03-20-2024 Platelet mean volume (Bld) [Entitic vol] 10.6 fL 6.2-12.0 [facility] Microscopic analysis of urin e for red blood cells (RBC)Ordered By: Wero Porter on 03-20-2024 Urine RBC 0 SEEN /hpf 0-5 [facility] Monocyte percentageOrdered B y: Wero Porter on 03-20-2024 Monocytes/100 WBC (Bld) 10.1 % High 0-10 [facility] Mucus LM Ql (Urine sed)Order ed By: Wero Porter on 03-20-2024 Mucus Ql (Urine sed) 0 SEEN /hpf [facility] Neutrophil percentageOrdered By: Wero Porter on 03-20-2024 Neutrophils/100 WBC (Bld) 61.9 % 47-70 [facility] Nitrite Test strip Ql (U)Ord ered By: Wero Porter on 03-20-2024 Nitrite Ql (U) Negative Negative [facility] Nucleated red blood cell per centageOrdered By: Wero Porter on 03-20-2024 Nucleated RBC/100 WBC (Bld) [Ratio] 0 % 0-5 [facility] Platelet countOrdered By: Erika Porter on 03-20-2024 Platelets (Bld) [#/Vol] 275 10*3/uL 150-450 [facility] Potassium measurementOrdered By: Wero Porter on 03-20-2024 Potassium [Moles/Vol] 3.6 mmol/L 3.5-5.1 [facility] Protein Test strip Ql (U)Ord ered By: Wero Porter on 03-20-2024 Protein Ql (U) Negative Negative [facility] RBC Auto (Bld) [#/Vol]Ordere d By: Wero Porter on 03-20-2024 RBC (Bld) [#/Vol] 4.34 10*6/uL Low 4.6-6.2 [facility] Serum anion gap measurementO rdered By: Wero Porter on 03-20-2024 Anion gap [Moles/Vol] 11 mmol/L 5-15 [facility] Serum globulin measurementOr dered By: Wero Porter on 03-20-2024 Globulin (S) [Mass/Vol] 3.8 g/dL 2.2-4.2 [facility] Serum or plasma alanine sams otransferase (ALT) measurementOrdered By: Wero Porter on 03-20-2024 ALT [Catalytic activity/Vol] 25 U/L 16-61 [facility] Serum or plasma albumin westley urement (mass/volume)Ordered By: Wero Porter on 03-20-2024 Albumin [Mass/Vol] 3.9 g/dL 3.2-5.0 [facility] Serum or plasma alkaline rafael sphatase measurementOrdered By: Wero Porter on 03-20-2024 ALP [Catalytic activity/Vol] 72 U/L 45-117 [facility] Serum or plasma calcium westley urement (mass/volume)Ordered By: Wero Porter on 03-20-2024 Calcium [Mass/Vol] 9.2 mg/dL 8.5-10.1 [facility] Serum or plasma cholesterol measurement (mass/volume)Ordered By: Wero Porter on 03-20-2024 Cholesterol [Mass/Vol] 127 mg/dL <200 [facility] Comment on above: <200 mg/dL Desirable 200-240 mg/dL Borderline >240 mg/dL High Risk Serum or plasma creatinine m easurement (mass/volume)Ordered By: Wero Porter on 03-20-2024 Creatinine [Mass/Vol] 0.94 mg/dL 0.70-1.30 [facility] Comment on above: The validity of the calculated GFR & GFRAA in patients over 70 years has not been determined. Clinical correlation is essential. Serum or plasma urea nitroge n measurement (mass/volume)Ordered By: Wero Porter on 03-20-2024 Urea nitrogen [Mass/Vol] 14 mg/dL 7-18 [facility] Sodium levelOrdered By: Wero Porter on 03-20-2024 Sodium [Moles/Vol] 135 mmol/L Low 136-145 [facility] Total proteinOrdered By: Phil Porter on 03-20-2024 Protein [Mass/Vol] 7.7 g/dL 6.4-8.2 [facility] Triglycerides measurementOrd ered By: Wero Porter on 03-20-2024 Triglyceride [Mass/Vol] 306 mg/dL High <199 [facility] Comment on above: The drugs N-Acetylcy steine and Metamizole may falsely depress this assay.Serum Triglycerides Reference Interval Normal <150 mg/dL Borderline high 150 - 199 mg/dL High 200 - 499 mg/dL Very High > or = 500 mg/dL Urinalysis, Completeon 03-20 EPI,SQUAMOUS 0-5 SEEN Normal 0-5 [facility] Comment on above: Order Comment: CLEAN CATCH Performed By: #### L 400.0001 #### [facility] [address] [place], [address] BACTERIA 0 SEEN Normal None Seen [facility] Comment on above: Order Comment: CLEAN CATCH Performed By: #### L 400.0001 #### [facility] [address] [place], [address] Mucus Ql (Urine sed) 0 SEEN Normal [facility] Comment on above: Order Comment: CLEAN CATCH Performed By: #### L 400.0001 #### [facility] [address] [place], [address] RBC 0 SEEN Normal 0-5 [facility] Comment on above: Order Comment: CLEAN CATCH Performed By: #### L 400.0001 #### [facility] [address] [place], [address] WBC 0 SEEN Normal 0-5 [facility] Comment on above: Order Comment: CLEAN CATCH Performed By: #### L 400.0001 #### [facility] [address] [place], [address] Urine blood detectionOrdered By: Wero Porter on 03-20-2024 Urine Occult Blood Negative Negative [facility] Urine clarityOrdered By: Phil Porter on 03-20-2024 Clarity (U) Clear Clear [facility] Urine color determinationOrd ered By: Wero Porter on 03-20-2024 Color (U) Yellow Yellow [facility] Urine leukocyte esterase det ection by dipstickOrdered By: Wero Porter on 03-20-2024 Leukocyte esterase Test strip Ql (U) Negative Negative [facility] Urine pHOrdered By: Wero aguero on 03-20-2024 pH (U) 7.0 [pH] 5.0 - 8.0 [facility] Urine sediment bacteria coun t by microscopy (number/high power field)Ordered By: Wero Porter on 03-20-2024 Bacteria LM.HPF (Urine sed) [#/Area] 0 /[HPF] None Seen [facility] Urine specific gravity measu rementOrdered By: Wero Porter on 03-20-2024 Specific gravity (U) [Rel density] 1.005 1.002-1.030 [facility] Urobilinogen Ql (U)Ordered B y: Wero Porter on 03-20-2024 Urine Urobilinogen Normal mg/dl Normal [facility] Very low density lipoprotein (VLDL) cholesterol measurementOrdered By: Wero Porter on 03-20-2024 VLDL Cholesterol 61 mg/dL High 5-40 [facility] White blood cell (WBC) count Ordered By: Wero Porter on 03-20-2024 WBC (Bld) [#/Vol] 9.4 10*3/uL 4.4-11.0 [facility] White blood cell countOrdere d By: Wero Porter on 03-20-2024 Urine WBC 0 SEEN /hpf 0-5 [facility] Thyroidon 12-12-[address] [facility] [address] [place] [address] [id number] Thyroid MR#: [id number] Acct: [id number] Name: YOUNG ALBRIGHT Rep #: [id number] : 1945 M 78 From: Lewis stroud MD PCP: Dr. Wero Porter MD Status: REG [facility] Study: Thyroid Date of Exam: 12/12/23 Exam# [id number] Ordering Dr: Wero Porter MD [id number] STUDY: THYROID ULTRASOUND REASON FOR EXAM: Male, 78 years old. Thyroid nodules. TECHNIQUE: Ultrasound evaluation of the thyroid was performed with real-time and static riojas-scale imaging. COMPARISON: Comparison is made with prior study of September 18, 2021. FINDINGS: RIGHT LOBE: The right lobe of the thyroid gland measures 4.5 cm x 1.5 cm x 1.9 cm. There is a homogeneous echotexture. Stable complex solid cystic nodule with increased SE in the midportion of the right lobe measuring 1.9 cm x 1.3 cm x 1 cm. There is also evidence of a 3 mm x 3 mm x 2 mm solid/cystic nodule with increased vascularity in the superior midportion of the right lobe. LEFT LOBE: The left lobe of the thyroid gland measures 4 cm x 1.7 cm x 2.1 cm. There is a homogeneous echotexture. Once again, there is a dominant 2.3 cm x 1.5 cm x 1.7 cm solid nodule with increased vascularity in the midpole. A similar appearing nodule measuring 1.4 cm x 1.1 cm x 0.5 cm is also seen in the midpole. This is unchanged. There is also evidence of a 5 mm x 5 mm x 4 mm solid/cystic nodule in the upper pole of the right lobe as well as a 7 mm x 7 mm x 4 mm solid/cystic nodule in the inferior pole. ISTHMUS: The isthmus measures 3.5 mm. The regional lymph nodes are normal. US/Thyroid IMPRESSION: Dominant solid/cystic nodules in both lobes of the thyroid as described. Correlation with nuclear medicine thyroid scan and uptake recommended. Electronically Signed: Lewis Moncada MD at 9:28 EDT Reading Location ID and State: [address] [place] [address] , Service support , CC: Dr. Wero Porter MD Cooler Operator: Signed Normal [facility] CBC W/Diff, Automatedon 08-0 Absolute Lymph 2.61 X10 3/uL Normal 0.83-4.51 [facility] Comment on above: Order Comment: Order Date: 03/29/24 Order Info: 0779-1 - MIACRE Performed By: #### L 502.0250, L501.9985, L100.0100, L500.4100, L500.4050 #### [facility] [address] [place], [address] Absolute Neut 4.5 X10 3/uL Normal 2.0-7.7 [facility] Comment on above: Order Comment: Order Date: 03/29/24 Order Info: 0779-1 - MIACRE Performed By: #### L 502.0250, L501.9985, L100.0100, L500.4100, L500.4050 #### [facility] [address] [place], [address] Basophils/100 WBC (Bld) 0.8 % Normal 0-1 [facility] Comment on above: Order Comment: Order Date: 03/29/24 Order Info: 0779-1 - MIACRE Performed By: #### L 502.0250, L501.9985, L100.0100, L500.4100, L500.4050 #### [facility] [address] [place], [address] Eosinophils/100 WBC (Bld) 4.4 % Normal 0-5 [facility] Comment on above: Order Comment: Order Date: 03/29/24 Order Info: 0779-1 - MIACRE Performed By: #### L 502.0250, L501.9985, L100.0100, L500.4100, L500.4050 #### [facility] [address] [place], [address] Erythrocyte distribution width (RBC) [Ratio] 12.6 % Normal 11.6-14.6 [facility] Comment on above: Order Comment: Order Date: 03/29/24 Order Info: 0779-1 - MIACRE Performed By: #### L 502.0250, L501.9985, L100.0100, L500.4100, L500.4050 #### [facility] [address] [place], [address] Hematocrit (Bld) [Volume fraction] 37.8 % Low 40-54 [facility] Comment on above: Order Comment: Order Date: 03/29/24 Order Info: 0779-1 - MIACRE Performed By: #### L 502.0250, L501.9985, L100.0100, L500.4100, L500.4050 #### [facility] [address] [place], [address] Hemoglobin (Bld) [Mass/Vol] 12.4 g/dL Low 13.0-16.5 [facility] Comment on above: Order Comment: Order Date: 03/29/24 Order Info: 0779-1 - MIACRE Performed By: #### L 502.0250, L501.9985, L100.0100, L500.4100, L500.4050 #### [facility] [address] [place], [address] IG% 0.200 Normal 0.0-0.9 [facility] Comment on above: Order Comment: Order Date: 03/29/24 Order Info: 0779-1 - MIACRE Result Comment: IG% - Immature Granulocytes (promyelocytes, myelocytes and metamyelocytes) > 1% indicates that a LEFT SHIFT is Present. Performed By: #### L 502.0250, L501.9985, L100.0100, L500.4100, L500.4050 #### [facility] [address] [place], [address] Lymphocytes/100 WBC (Bld) 31.1 % Normal 19-41 [facility] Comment on above: Order Comment: Order Date: 03/29/24 Order Info: 0779-1 - MIACRE Performed By: #### L 502.0250, L501.9985, L100.0100, L500.4100, L500.4050 #### [facility] [address] [place], [address] MCH (RBC) [Entitic mass] 29.4 pg Normal 27.0-32.0 [facility] Comment on above: Order Comment: Order Date: 03/29/24 Order Info: 0779-1 - MIACRE Performed By: #### L 502.0250, L501.9985, L100.0100, L500.4100, L500.4050 #### [facility] [address] [place], [address] MCHC (RBC) [Mass/Vol] 32.8 g/dL Normal 32-36 [facility] Comment on above: Order Comment: Order Date: 03/29/24 Order Info: 0779-1 - MIACRE Performed By: #### L 502.0250, L501.9985, L100.0100, L500.4100, L500.4050 #### [facility] [address] [place], [address] MCV (RBC) [Entitic vol] 89.6 fL Normal 80-94 [facility] Comment on above: Order Comment: Order Date: 03/29/24 Order Info: 0779-1 - MIACRE Performed By: #### L 502.0250, L501.9985, L100.0100, L500.4100, L500.4050 #### [facility] [address] [place], [address] Monocytes/100 WBC (Bld) 10.0 % Normal 0-10 [facility] Comment on above: Order Comment: Order Date: 03/29/24 Order Info: 0779-1 - MIACRE Performed By: #### L 502.0250, L501.9985, L100.0100, L500.4100, L500.4050 #### [facility] [address] [place], [address] Neutrophils/100 WBC (Bld) 53.5 % Normal 47-70 [facility] Comment on above: Order Comment: Order Date: 03/29/24 Order Info: 0779-1 - MIACRE Performed By: #### L 502.0250, L501.9985, L100.0100, L500.4100, L500.4050 #### [facility] [address] [place], [address] Nucleated RBC (Bld) [#/Vol] 0 10*3/uL Normal 0-5 [facility] Comment on above: Order Comment: Order Date: 03/29/24 Order Info: 0779-1 - MIACRE Performed By: #### L 502.0250, L501.9985, L100.0100, L500.4100, L500.4050 #### [facility] [address] [place], [address] Platelet mean volume (Bld) [Entitic vol] 11.0 fL Normal 6.2-12.0 [facility] Comment on above: Order Comment: Order Date: 03/29/24 Order Info: 0779-1 - MIACRE Performed By: #### L 502.0250, L501.9985, L100.0100, L500.4100, L500.4050 #### [facility] [address] [place], [address] Platelets (Bld) [#/Vol] 279 10*3/uL Normal 150-450 [facility] Comment on above: Order Comment: Order Date: 03/29/24 Order Info: 0779-1 - MIACRE Performed By: #### L 502.0250, L501.9985, L100.0100, L500.4100, L500.4050 #### [facility] [address] [place], [address] RBC (Bld) [#/Vol] 4.22 10*6/uL Low 4.6-6.2 [facility] Comment on above: Order Comment: Order Date: 03/29/24 Order Info: 0779-1 - MIACRE Performed By: #### L 502.0250, L501.9985, L100.0100, L500.4100, L500.4050 #### [facility] [address] [place], [address] RDW SD 41.2 fl Normal 35.1-43.9 [facility] Comment on above: Order Comment: Order Date: 03/29/24 Order Info: 0779-1 - MIACRE Performed By: #### L 502.0250, L501.9985, L100.0100, L500.4100, L500.4050 #### [facility] [address] [place], [address] WBC (Bld) [#/Vol] 8.4 10*3/uL Normal 4.4-11.0 [facility] Comment on above: Order Comment: Order Date: 03/29/24 Order Info: 0779-1 - MIACRE Performed By: #### L 502.0250, L501.9985, L100.0100, L500.4100, L500.4050 #### [facility] [address] [place], [address] Comprehensive Metabolic Prof ilon 11-17-2023 Albumin [Mass/Vol] 3.9 g/dL Normal 3.2-5.0 [facility] Comment on above: Order Comment: Order Date: 03/29/24 Order Info: 0779-1 - MIACRE Performed By: #### L 502.0250, L501.9985, L100.0100, L500.4100, L500.4050 #### [facility] [address] [place], [address] Albumin/Globulin [Mass ratio] 1.1 {ratio} Normal 0.9-2.4 [facility] Comment on above: Order Comment: Order Date: 03/29/24 Order Info: 0779-1 - MIACRE Performed By: #### L 502.0250, L501.9985, L100.0100, L500.4100, L500.4050 #### [facility] [facility] [address] [place], [address] ALK P 69 U/L Normal 45-117 [facility] Comment on above: Order Comment: Order Date: 03/29/24 Order Info: 0779-1 - MIACRE Performed By: #### L 502.0250, L501.9985, L100.0100, L500.4100, L500.4050 #### [facility] [address] [place], [address] ALT [Catalytic activity/Vol] 33 U/L Normal 16-61 [facility] Comment on above: Order Comment: Order Date: 03/29/24 Order Info: 0779-1 - MIACRE Performed By: #### L 502.0250, L501.9985, L100.0100, L500.4100, L500.4050 #### [facility] [address] [place], [address] AST [Catalytic activity/Vol] 19 U/L Normal 15-37 [facility] Comment on above: Order Comment: Order Date: 03/29/24 Order Info: [id number] - MIACRE Performed By: #### L 502.0250, L501.9985, L100.0100, L500.4100, L500.4050 #### [facility] [address] [place], [address] Bilirubin [Mass/Vol] 0.50 mg/dL Normal 0.20-1.00 [facility] Comment on above: Order Comment: Order Date: 03/29/24 Order Info: 0779-1 - MIACRE Result Comment: For patients on eltrombopag therapy, use of Dimension [place] TBIL is not recommended. Performed By: #### L 502.0250, L501.9985, L100.0100, L500.4100, L500.4050 #### [facility] [address] [place], [address] BUN/CRE 20.6 RATIO High 10-20 [facility] Comment on above: Order Comment: Order Date: 03/29/24 Order Info: 0779-1 - MIACRE Performed By: #### L 502.0250, L501.9985, L100.0100, L500.4100, L500.4050 #### [facility] [address] [place], [address] CA,Total 10.0 mg/dL Normal 8.5-10.1 [facility] Comment on above: Order Comment: Order Date: 03/29/24 Order Info: 0779-1 - MIACRE Performed By: #### L 502.0250, L501.9985, L100.0100, L500.4100, L500.4050 #### [facility] [address] [place], [address] Chloride [Moles/Vol] 101 mmol/L Normal 98-107 [facility] Comment on above: Order Comment: Order Date: 03/29/24 Order Info: 0779-1 - MIACRE Performed By: #### L 502.0250, L501.9985, L100.0100, L500.4100, L500.4050 #### [facility] [address] [place], [address] CO2 [Moles/Vol] 31.0 mmol/L Normal 21.0-32.0 [facility] Comment on above: Order Comment: Order Date: 03/29/24 Order Info: 0779-1 - MIACRE Performed By: #### L 502.0250, L501.9985, L100.0100, L500.4100, L500.4050 #### [facility] [address] [place], [address] Creatinine [Mass/Vol] 0.92 mg/dL Normal 0.70-1.30 [facility] Comment on above: Order Comment: Order Date: 03/29/24 Order Info: 0779-1 - MIACRE Result Comment: The validity of the calculated GFR GFRAA in patients over 70 years has not been determined. Clinical correlation is essential. Performed By: #### L 502.0250, L501.9985, L100.0100, L500.4100, L500.4050 #### [facility] [address] [place], [address] EST GFR - AA 103 mL/min Normal >60 [facility] Comment on above: Order Comment: Order Date: 03/29/24 Order Info: 0779-1 - MIACRE Result Comment: Afri can [place]an GFR Calc Performed By: #### L 502.0250, L501.9985, L100.0100, L500.4100, L500.4050 #### [facility] [address] [place], [address] GAP 5 Normal 5-15 [facility] Comment on above: Order Comment: Order Date: 03/29/24 Order Info: 0779-1 - MIACRE Performed By: #### L 502.0250, L501.9985, L100.0100, L500.4100, L500.4050 #### [facility] [address] [place], [address] GFR/1.73 sq M.predicted among non-blacks MDRD (S/P/Bld) [Vol rate/Area] 85 mL/min/{1.73_m2} Normal >60 [facility] Comment on above: Order Comment: Order Date: 03/29/24 Order Info: 0779-1 - MIACRE Result Comment: Non- GFR Calc Performed By: #### L 502.0250, L501.9985, L100.0100, L500.4100, L500.4050 #### [facility] [address] [place], [address] Globulin (S) [Mass/Vol] 3.6 g/dL Normal 2.2-4.2 [facility] Comment on above: Order Comment: Order Date: 03/29/24 Order Info: 0779-1 - MIACRE Performed By: #### L 502.0250, L501.9985, L100.0100, L500.4100, L500.4050 #### [facility] [address] [place], [address] Glucose [Mass/Vol] 133 mg/dL High 74-106 [facility] Comment on above: Order Comment: Order Date: 03/29/24 Order Info: 0779-1 - MIACRE Result Comment: Fast ing Glucose result greater than or equal to 126 mg/dL suggests DIABETES MELLITUS per A.D.A. criteria. Performed By: #### L 502.0250, L501.9985, L100.0100, L500.4100, L500.4050 #### [facility] [address] [place], [address] Potassium [Moles/Vol] 3.8 mmol/L Normal 3.5-5.1 [facility] Comment on above: Order Comment: Order Date: 03/29/24 Order Info: 0779-1 - MIACRE Performed By: #### L 502.0250, L501.9985, L100.0100, L500.4100, L500.4050 #### [facility] [address] [place], [address] Sodium [Moles/Vol] 137 mmol/L Normal 136-145 [facility] Comment on above: Order Comment: Order Date: 03/29/24 Order Info: 0779-1 - MIACRE Performed By: #### L 502.0250, L501.9985, L100.0100, L500.4100, L500.4050 #### [facility] [address] [place], [address] T PROT 7.5 g/dL Normal 6.4-8.2 [facility] Comment on above: Order Comment: Order Date: 03/29/24 Order Info: 0779-1 - MIACRE Performed By: #### L 502.0250, L501.9985, L100.0100, L500.4100, L500.4050 #### [facility] [address] [place], [address] Urea nitrogen [Mass/Vol] 19 mg/dL High 7-18 [facility] Comment on above: Order Comment: Order Date: 03/29/24 Order Info: 0779-1 - MIACRE Performed By: #### L 502.0250, L501.9985, L100.0100, L500.4100, L500.4050 #### [facility] [address] [place], [address] Hemoglobin A1con 11-17-2023 HbA1c (Bld) [Mass fraction] 6.7 % High 3.8-5.6 [facility] Comment on above: Order Comment: Order Date: 03/29/24 Order Info: 0779-1 - MIACRE Result Comment: Norm al < 5.7 % Prediabetic 5.7 - 6.4 % Diabetic >or= 6.5 % Please note range changes. Performed By: #### L 502.0250, L501.9985, L100.0100, L500.4100, L500.4050 #### [facility] [address] [place], [address] Lipid Profileon 11-17-2023 Cholesterol [Mass/Vol] 101 mg/dL Normal 200 [facility] Comment on above: Order Comment: Order Date: 03/29/24 Order Info: 0779-1 - MIACRE Result Comment: <200 mg/dL Desirable 200-240 mg/dL Borderline >240 mg/dL High Risk Performed By: #### L 502.0250, L501.9985, L100.0100, L500.4100, L500.4050 #### [facility] [address] [place], [address] Cholesterol in HDL [Mass/Vol] 42 mg/dL Normal [facility] Comment on above: Order Comment: Order Date: 03/29/24 Order Info: 0779-1 - MIACRE Result Comment: The drugs N-Acetylcysteine and Metamizole may falsely depress this assay. Reference Range HDL <40 mg/dL Low HDL Cholesterol HDL >or= 60 mg/dL High HDL Cholesterol Performed By: #### L 502.0250, L501.9985, L100.0100, L500.4100, L500.4050 #### [facility] [address] [place], [address] Cholesterol in LDL [Mass/Vol] 23 mg/dL Normal 0-130 [facility] Comment on above: Order Comment: Order Date: 03/29/24 Order Info: 0779-1 - MIACRE Performed By: #### L 502.0250, L501.9985, L100.0100, L500.4100, L500.4050 #### [facility] [address] [place], [address] Cholesterol in VLDL [Mass/Vol] 36 mg/dL Normal 5-40 [facility] Comment on above: Order Comment: Order Date: 03/29/24 Order Info: 0779-1 - MIACRE Performed By: #### L 502.0250, L501.9985, L100.0100, L500.4100, L500.4050 #### [facility] [address] [place], [address] Triglyceride [Mass/Vol] 180 mg/dL Normal [facility] Comment on above: Order Comment: Order Date: 03/29/24 Order Info: 0779-1 - MIACRE Result Comment: The drugs N-Acetylcysteine and Metamizole may falsely depress this assay. Serum Triglycerides Reference Interval Normal <150 mg/dL Borderline high 150 - 199 mg/dL High 200 - 499 mg/dL Very High > or = 500 mg/dL Performed By: #### L 502.0250, L501.9985, L100.0100, L500.4100, L500.4050 #### [facility] [address] [place], [address] Microalb:Creat Ratio,Random URon 11-17-2023 Creatinine [Mass/Vol] 103.00 mg/dL Normal NO RANGE EST . [facility] Comment on above: Order Comment: Order Date: 03/29/24 Order Info: 0779-1 - MIACRE Performed By: #### L 502.0250, L501.9985, L100.0100, L500.4100, L500.4050 #### [facility] [address] [place], [address] MALB:CRE 11.4 mg/g CRE Normal <30 mg/g CRE [facility] Comment on above: Order Comment: Order Date: 03/29/24 Order Info: 0779-1 - MIACRE Performed By: #### L 502.0250, L501.9985, L100.0100, L500.4100, L500.4050 #### [facility] [address] [place], [address] MICROALBUMIN,UR 11.7 mg/L Normal NO RANGE EST. [facility] Comment on above: Order Comment: Order Date: 03/29/24 Order Info: 0779-1 - MIACRE Performed By: #### L 502.0250, L501.9985, L100.0100, L500.4100, L500.4050 #### [facility] [address] [place], [address] Urinalysis, Completeon 11-16 BACTERIA 1+ /hpf Normal None Seen [facility] Comment on above: Order Comment: CLEAN CATCH Performed By: #### L 400.0001 #### [facility] [address] [place], [address] EPI,SQUAMOUS 0 SEEN Normal 0-5 [facility] Comment on above: Order Comment: CLEAN CATCH Performed By: #### L 400.0001 #### [facility] [address] [place], [address] Mucus Ql (Urine sed) 0 SEEN Normal [facility] Comment on above: Order Comment: CLEAN CATCH Performed By: #### L 400.0001 #### [facility] [address] [place], [place], [address] RBC 0 SEEN Normal 0-5 [facility] Comment on above: Order Comment: CLEAN CATCH Performed By: #### L 400.0001 #### [facility] [address] [place], [place], [id number] WBC 0 SEEN Normal 0-5 [facility] Comment on above: Order Comment: CLEAN CATCH Performed By: #### L 400.0001 #### [facility] [address] [place], [place], [id number] Absolute lymphocyte countOrd ered By: Wero oPrter on 07-21-2023 Lymphocytes Auto (Unsp spec) [#/Vol] 3.00 10*3/uL 0.83-4.51 [facility] Automated lymphocyte count a s percentage of total leukocytesOrdered By: Wero Porter on 07-21-2023 Lymphocytes/100 WBC Auto (Unsp spec) 36.2 % 19-41 [facility] Basophil percentageOrdered B y: Wero Porter on 07-21-2023 Basophils/100 WBC (Bld) 0.7 % 0-1 [facility] Eosinophils/100 WBC (Bld) 4.2 % 0-5 [facility] Hemoglobin (Bld) [Mass/Vol] 13.1 g/dL 13.0-16.5 [facility] Monocytes/100 WBC (Bld) 10.5 % 0-10 [facility] Neutrophils (Bld) [#/Vol] 4.0 10*3/uL 2.0-7.7 [facility] Neutrophils/100 WBC (Bld) 48.2 % 47-70 [facility] WBC (Bld) [#/Vol] 8.3 10*3/uL 4.4-11.0 [facility] Determination of erythrocyte mean corpuscular volume (MCV)Ordered By: Wero Porter on 07-21-2023 MCV (RBC) [Entitic vol] 88.5 fL 80-94 [facility] Erythrocyte distribution wid th ratioOrdered By: Wero Porter on 07-21-2023 Erythrocyte distribution width (RBC) [Ratio] 12.4 % 11.6-14.6 [facility] Erythrocyte distribution wid th standard deviationOrdered By: Wero Porter on 07-21-2023 Erythrocyte distribution width (RBC) [Entitic vol] 40.3 fL 35.1-43.9 [facility] Hematocrit Auto (Bld) [Volum e fraction]Ordered By: Wero Porter on 07-21-2023 Hematocrit (Bld) [Volume fraction] 39.3 % 40-54 [facility] Immature granulocytes/100 WB C Auto (Bld)Ordered By: Wero Porter on 07-21-2023 Immature granulocytes/100 WBC (Bld) 0.200 % 0.0-0.9 [facility] Comment on above: IG% - Immature Granu locytes (promyelocytes, myelocytes and metamyelocytes) > 1% indicates that a LEFT SHIFT is Present. Iron measurement (mass/mass) Ordered By: Wero Porter on 07-21-2023 Iron (Unsp spec) [Mass/Mass] 77 ug/dL 65-175 [facility] Laboratory - Chemistry and C hemistry - challengeOrdered By: Wero Porter on 07-21-2023 Cobalamin (Vitamin B12) [Mass/Vol] 349 pg/mL 211-911 [facility] Ferritin [Mass/Vol] 84 ng/mL 26-388 [facility] - Hematology and Cell countsOrdered By: Wero Porter on 07-21-2023 MCH (RBC) [Entitic mass] 29.5 pg 27.0-32.0 [facility] MCHC (RBC) [Mass/Vol] 33.3 g/dL 32-36 [facility] Nucleated RBC/100 WBC (Bld) [Ratio] 0 % 0-5 [facility] Platelet mean volume (Bld) [Entitic vol] 10.6 fL 6.2-12.0 [facility] Platelets (Bld) [#/Vol] 312 10*3/uL 150-450 [facility] No Panel InformationOrdered By: Wero Porter on 07-21-2023 Folate 31.50 ng/mL 3.1-55.4 [facility] Total Iron Binding Capacity 351 ug/dL 250-450 [facility] RBC Auto (Bld) [#/Vol]Ordere d By: Wero Porter on 07-21-2023 RBC (Bld) [#/Vol] 4.44 10*6/uL 4.6-6.2 [facility] Absolute lymphocyte countOrd ered By: Wero Carbajalprabhakar on 07-06-2023 Lymphocytes Auto (Unsp spec) [#/Vol] 2.41 10*3/uL 0.83-4.51 [facility] Automated lymphocyte count a s percentage of total leukocytesOrdered By: Wero Porter on 07-06-2023 Lymphocytes/100 WBC Auto (Unsp spec) 30.9 % 19-41 [facility] Basophil percentageOrdered B y: Wero Porter on 07-06-2023 Basophils/100 WBC (Bld) 0.9 % 0-1 [facility] Bilirubin [Mass/Vol] 0.40 mg/dL 0.20-1.00 [facility] Comment on above: For patients on eltr ombopag therapy, use of Dimension [place] TBIL is not recommended. Chloride [Moles/Vol] 99 mmol/L 98-107 [facility] Cholesterol [Mass/Vol] 97 mg/dL <200 [facility] Comment on above: <200 mg/dL Desirable 200-240 mg/dL Borderline >240 mg/dL High Risk Eosinophils/100 WBC (Bld) 3.3 % 0-5 [facility] Glucose [Mass/Vol] 158 mg/dL 74-106 [facility] Comment on above: Fasting Glucose resu lt greater than or equal to 126 mg/dL suggests DIABETES MELLITUS per A.D.A. criteria. Hemoglobin (Bld) [Mass/Vol] 12.4 g/dL 13.0-16.5 [facility] Monocytes/100 WBC (Bld) 10.4 % 0-10 [facility] Neutrophils (Bld) [#/Vol] 4.3 10*3/uL 2.0-7.7 [facility] Neutrophils/100 WBC (Bld) 54.4 % 47-70 [facility] Potassium [Moles/Vol] 3.4 mmol/L 3.5-5.1 [facility] Protein [Mass/Vol] 7.3 g/dL 6.4-8.2 [facility] Sodium [Moles/Vol] 136 mmol/L 136-145 [facility] Triglyceride [Mass/Vol] 144 mg/dL <199 [facility] Comment on above: The drugs N-Acetylcy steine and Metamizole may falsely depress this assay.Serum Triglycerides Reference Interval Normal <150 mg/dL Borderline high 150 - 199 mg/dL High 200 - 499 mg/dL Very High > or = 500 mg/dL WBC (Bld) [#/Vol] 7.8 10*3/uL 4.4-11.0 [facility] Determination of erythrocyte mean corpuscular volume (MCV)Ordered By: Wero Porter on 07-06-2023 MCV (RBC) [Entitic vol] 89.3 fL 80-94 [facility] Erythrocyte distribution wid th ratioOrdered By: Wero Porter on 07-06-2023 Erythrocyte distribution width (RBC) [Ratio] 12.6 % 11.6-14.6 [facility] Erythrocyte distribution wid th standard deviationOrdered By: Wero Porter on 07-06-2023 Erythrocyte distribution width (RBC) [Entitic vol] 40.9 fL 35.1-43.9 [facility] Hematocrit Auto (Bld) [Volum e fraction]Ordered By: Wero Porter on 07-06-2023 Hematocrit (Bld) [Volume fraction] 37.7 % 40-54 [facility] Immature granulocytes/100 WB C Auto (Bld)Ordered By: Wero Porter on 07-06-2023 Immature granulocytes/100 WBC (Bld) 0.100 % 0.0-0.9 [facility] Comment on above: IG% - Immature Granu locytes (promyelocytes, myelocytes and metamyelocytes) > 1% indicates that a LEFT SHIFT is Present. Laboratory - Chemistry and C hemistry - challengeOrdered By: Wero Porter on 07-06-2023 Albumin/Globulin [Mass ratio] 1.1 {ratio} 0.9-2.4 [facility] ALP [Catalytic activity/Vol] 71 U/L 45-117 [facility] ALT [Catalytic activity/Vol] 24 U/L 16-61 [facility] Cholesterol in HDL [Mass/Vol] 44 mg/dL >40 [facility] Comment on above: The drugs N-Acetylcy steine and Metamizole may falsely depress this assay. Reference Range HDL <40 mg/dL Low HDL Cholesterol HDL >or= 60 mg/dL High HDL Cholesterol Cholesterol in LDL [Mass/Vol] 24 mg/dL 0-130 [facility] CO2 [Moles/Vol] 26.0 mmol/L 21.0-32.0 [facility] Globulin (S) [Mass/Vol] 3.4 g/dL 2.2-4.2 [facility] Urea nitrogen/Creatinine [Mass ratio] 18.3 mg/mg 10-20 [facility] Laboratory - Hematology and Cell countsOrdered By: Wero Porter on 07-06-2023 MCH (RBC) [Entitic mass] 29.4 pg 27.0-32.0 [facility] MCHC (RBC) [Mass/Vol] 32.9 g/dL 32-36 [facility] Nucleated RBC/100 WBC (Bld) [Ratio] 0 % 0-5 [facility] Platelet mean volume (Bld) [Entitic vol] 10.9 fL 6.2-12.0 [facility] Platelets (Bld) [#/Vol] 275 10*3/uL 150-450 [facility] No Panel InformationOrdered By: Wero Porter on 07-06-2023 Estimated GFR (MDRD) Amer 95 mL/min >60 [facility] Comment on above: GFR Calc Estimated GFR (MDRD) Non-Af Amer 79 mL/min >60 [facility] Comment on above: Non- GFR Calc Urine Microalbumin/Creatinine Ratio 8.0 mg/g CRE <30 [facility] VLDL Cholesterol 29 mg/dL 5-40 [facility] RBC Auto (Bld) [#/Vol]Ordere d By: Wero Porter on 07-06-2023 RBC (Bld) [#/Vol] 4.22 10*6/uL 4.6-6.2 [facility] Serum or plasma calcium westley urement (mass/volume)Ordered By: Wero Porter on 07-06-2023 Calcium [Mass/Vol] 9.1 mg/dL 8.5-10.1 [facility] Serum or plasma creatinine m easurement (mass/volume)Ordered By: Wero Porter on 07-06-2023 Creatinine [Mass/Vol] 0.99 mg/dL 0.70-1.30 [facility] Comment on above: The validity of the calculated GFR & GFRAA in patients over 70 years has not been determined. Clinical correlation is essential. Serum or plasma urea nitroge n measurement (mass/volume)Ordered By: Wero Porter on 07-06-2023 Urea nitrogen [Mass/Vol] 18 mg/dL 7-18 [facility] Thin prep Papanicolaou smear with manual screeningOrdered By: Wero Porter on 07-06-2023 Thin prep Papanicolaou smear with manual screening 3.9 g/dL 3.2-5.0 [facility] Thin prep Papanicolaou smear with manual screening 17 U/L 15-37 [facility] Thin prep Papanicolaou smear with manual screening 11 5-15 [facility] Thin prep Papanicolaou smear with manual screening 7.8 mg/L NO RANGE EST. [facility] Urine creatinine measurement (mass/volume)Ordered By: Wero Porter on 07-06-2023 Creatinine (U) [Mass/Vol] 97.20 mg/dL NO RANGE EST. [facility] Whole blood hemoglobin A1c/t otal hemoglobin ratio (mass fraction)Ordered By: Wero Porter on 07-06-2023 HbA1c (Bld) [Mass fraction] 6.5 % 3.8-5.6 [facility] Comment on above: Normal < 5.7 % Predi abetic 5.7 - 6.4 % Diabetic >or= 6.5 % Please note range changes. Basophil percentageOrdered B y: Milo Hubbard on 06-08-2023 Basophil percentage 3.81 ng/mL 0.0-4.0 [facility] Comment on above: This test was perfor med using the TPSA assay method for the[facility] system. Values obtained with differentassay methods cannot be used interchangably.When changing PSA assays in the course of monitoring apatient, additional sequential testing should be carriedout to confirm baseline values. Absolute lymphocyte countOrd ered By: Wero Porter on 03-17-2023 Lymphocytes Auto (Unsp spec) [#/Vol] 2.14 10*3/uL 0.83-4.51 [facility] Basophil percentageOrdered B y: Wero Porter on 03-17-2023 Basophils/100 WBC (Bld) 1.1 % 0-1 [facility] Bilirubin [Mass/Vol] 0.70 mg/dL 0.20-1.00 [facility] Comment on above: For patients on eltr ombopag therapy, use of Dimension [place] TBIL is not recommended. Chloride [Moles/Vol] 97 mmol/L 98-107 [facility] Cholesterol [Mass/Vol] 100 mg/dL <200 [facility] Comment on above: <200 mg/dL Desirable 200-240 mg/dL Borderline >240 mg/dL High Risk Eosinophils/100 WBC (Bld) 5.2 % 0-5 [facility] Glucose [Mass/Vol] 103 mg/dL 74-106 [facility] Comment on above: Fasting Glucose resu lt from 100 to 125 mg/dL suggests IMPAIRED HOMEOSTASIS per A.D.A. criteria. Neutrophils (Bld) [#/Vol] 4.1 10*3/uL 2.0-7.7 [facility] Neutrophils/100 WBC (Bld) 54.6 % 47-70 [facility] Potassium [Moles/Vol] 3.5 mmol/L 3.5-5.1 [facility] Protein [Mass/Vol] 7.5 g/dL 6.4-8.2 [facility] Sodium [Moles/Vol] 136 mmol/L 136-145 [facility] Triglyceride [Mass/Vol] 143 mg/dL <199 [facility] Comment on above: The drugs N-Acetylcy steine and Metamizole may falsely depress this assay.Serum Triglycerides Reference Interval Normal <150 mg/dL Borderline high 150 - 199 mg/dL High 200 - 499 mg/dL Very High > or = 500 mg/dL WBC (Bld) [#/Vol] 7.5 10*3/uL 4.4-11.0 [facility] Blood erythrocytes count (nu mber/volume)Ordered By: Wero Porter on 03-17-2023 RBC (Bld) [#/Vol] 4.37 10*6/uL 4.6-6.2 [facility] Blood hemoglobin measurement (mass/volume)Ordered By: Wero Porter on 03-17-2023 Hemoglobin (Bld) [Mass/Vol] 12.7 g/dL 13.0-16.5 [facility] Blood lymphocytes/100 leukoc ytesOrdered By: Wero Porter on 03-17-2023 Lymphocytes/100 WBC (Bld) 28.6 % 19-41 [facility] Blood monocytes/100 leukocyt esOrdered By: Wero Porter on 03-17-2023 Monocytes/100 WBC (Bld) 10.4 % 0-10 [facility] Blood platelet mean volumeOr dered By: Wero Porter on 03-17-2023 Platelet mean volume (Bld) [Entitic vol] 10.9 fL 6.2-12.0 [facility] Determination of erythrocyte mean corpuscular volume (MCV)Ordered By: Wero Porter on 03-17-2023 MCV (RBC) [Entitic vol] 88.8 fL 80-94 [facility] Hematocrit Auto (Bld) [Volum e fraction]Ordered By: Wero Porter on 03-17-2023 Hematocrit (Bld) [Volume fraction] 38.8 % 40-54 [facility] Laboratory - Chemistry and C hemistry - challengeOrdered By: Wero Porter on 03-17-2023 ALP [Catalytic activity/Vol] 54 U/L 45-117 [facility] ALT [Catalytic activity/Vol] 29 U/L 16-61 [facility] CO2 [Moles/Vol] 29.0 mmol/L 21.0-32.0 [facility] Globulin (S) [Mass/Vol] 3.5 g/dL 2.2-4.2 [facility] Urea nitrogen/Creatinine [Mass ratio] 16.1 mg/mg 10-20 [facility] Laboratory - Hematology and Cell countsOrdered By: Wero Porter on 03-17-2023 Erythrocyte distribution width (RBC) [Entitic vol] 43.3 fL 35.1-43.9 [facility] Erythrocyte distribution width (RBC) [Ratio] 13.2 % 11.6-14.6 [facility] Immature granulocytes/100 WBC (Bld) 0.100 % 0.0-0.9 [facility] Comment on above: IG% - Immature Granu locytes (promyelocytes, myelocytes and metamyelocytes) > 1% indicates that a LEFT SHIFT is Present. MCH (RBC) [Entitic mass] 29.1 pg 27.0-32.0 [facility] Nucleated RBC/100 WBC (Bld) [Ratio] 0 % 0-5 [facility] MCHC Auto (RBC) [Mass/Vol]Or dered By: Wero Porter on 03-17-2023 MCHC (RBC) [Mass/Vol] 32.7 g/dL 32-36 [facility] No Panel InformationOrdered By: Wero Porter on 03-17-2023 Estimated GFR (MDRD) Amer 82 mL/min >60 [facility] Comment on above: GFR Calc Estimated GFR (MDRD) Non-Af Amer 68 mL/min >60 [facility] Comment on above: Non- GFR Calc Platelets bldOrdered By: Phil Porter on 03-17-2023 Platelets (Bld) [#/Vol] 294 10*3/uL 150-450 [facility] Serum or plasma albumin westley urement (mass/volume)Ordered By: Wero Porter on 03-17-2023 Albumin [Mass/Vol] 4.0 g/dL 3.2-5.0 [facility] Serum or plasma albumin/glob ulin mass ratioOrdered By: Wero Porter on 03-17-2023 Albumin/Globulin [Mass ratio] 1.1 {ratio} 0.9-2.4 [facility] Serum or plasma calcium westley urement (mass/volume)Ordered By: Wero Porter on 03-17-2023 Calcium [Mass/Vol] 9.1 mg/dL 8.5-10.1 [facility] Serum or plasma cholesterol in HDL measurement (mass/volume)Ordered By: Wero Porter on 03-17-2023 Cholesterol in HDL [Mass/Vol] 39 mg/dL >40 [facility] Comment on above: The drugs N-Acetylcy steine and Metamizole may falsely depress this assay. Reference Range HDL <40 mg/dL Low HDL Cholesterol HDL >or= 60 mg/dL High HDL Cholesterol Serum or plasma cholesterol in VLDL measurement (mass/volume)Ordered By: Wero Porter on 03-17-2023 Cholesterol in VLDL [Mass/Vol] 29 mg/dL 5-40 [facility] Serum or plasma creatinine m easurement (mass/volume)Ordered By: Wero Porter on 03-17-2023 Creatinine [Mass/Vol] 1.12 mg/dL 0.70-1.30 [facility] Comment on above: The validity of the calculated GFR & GFRAA in patients over 70 years has not been determined. Clinical correlation is essential. Serum or plasma low density lipoprotein (LDL) cholesterol measurement (mass/volume)Ordered By: Wero Porter on 03-17-2023 Cholesterol in LDL [Mass/Vol] 32 mg/dL 0-130 [facility] Serum or plasma urea nitroge n measurement (mass/volume)Ordered By: Wero Porter on 03-17-2023 Urea nitrogen [Mass/Vol] 18 mg/dL 7-18 [facility] Thin prep Papanicolaou smear with manual screeningOrdered By: Wero Porter on 03-17-2023 Thin prep Papanicolaou smear with manual screening 20 U/L 15-37 [facility] Thin prep Papanicolaou smear with manual screening 10 5-15 [facility] Whole blood hemoglobin A1c/t otal hemoglobin ratio (mass fraction)Ordered By: Wero Porter on 03-17-2023 HbA1c (Bld) [Mass fraction] 6.0 % 3.8-5.6 [facility] Comment on above: Normal < 5.7 % Predi abetic 5.7 - 6.4 % Diabetic >or= 6.5 % Please note range changes. Absolute lymphocyte countOrd ered By: Darius Petersen on 01-12-2023 Lymphocytes Auto (Unsp spec) [#/Vol] 1.95 10*3/uL 0.83-4.51 [facility] Basophil percentageOrdered B y: Darius Petersen on 01-12-2023 Basophils/100 WBC (Bld) 0.4 % 0-1 [facility] Chloride [Moles/Vol] 101 mmol[facility]L 98-107 [facility] Eosinophils/100 WBC (Bld) 1.9 % 0-5 [facility] Glucose [Mass/Vol] 99 mg/dL 74-106 [facility] Neutrophils (Bld) [#/Vol] 11.9 10*3/uL 2.0-7.7 [facility] Neutrophils/100 WBC (Bld) 74.9 % 47-70 [facility] Potassium [Moles/Vol] 3.4 mmol/L 3.5-5.1 [facility] Sodium [Moles/Vol] 135 mmol/L 136-145 [facility] WBC (Bld) [#/Vol] 15.9 10*3/uL 4.4-11.0 [facility] Blood erythrocytes count (nu mber/volume)Ordered By: Darius Petersen on 01-12-2023 RBC (Bld) [#/Vol] 4.18 10*6/uL 4.6-6.2 [facility] Blood hemoglobin measurement (mass/volume)Ordered By: Darius Petersen on 01-12-2023 Hemoglobin (Bld) [Mass/Vol] 12.3 g/dL 13.0-16.5 [facility] Blood lymphocytes/100 leukoc ytesOrdered By: Darius Petersen on 01-12-2023 Lymphocytes/100 WBC (Bld) 12.2 % 19-41 [facility] Blood manual differential co mment interpretation (narrative result)Ordered By: Darius Petersen on 01-12-2023 Manual differential comment Rey (Bld) [Interp] SCANNED [facility] Blood monocytes/100 leukocyt esOrdered By: Darius Petersen on 01-12-2023 Monocytes/100 WBC (Bld) 10.2 % 0-10 [facility] Blood platelet mean volumeOr dered By: Darius Petersen on 01-12-2023 Platelet mean volume (Bld) [Entitic vol] 10.2 fL 6.2-12.0 [facility] Determination of erythrocyte mean corpuscular volume (MCV)Ordered By: Darius Petersen on 01-12-2023 MCV (RBC) [Entitic vol] 87.8 fL 80-94 [facility] Hematocrit Auto (Bld) [Volum e fraction]Ordered By: Darius Petersen on 01-12-2023 Hematocrit (Bld) [Volume fraction] 36.7 % 40-54 [facility] Laboratory - Chemistry and C hemistry - challengeOrdered By: Darius Petersen on 01-12-2023 CO2 [Moles/Vol] 29.0 mmol/L 21.0-32.0 [facility] Natriuretic peptide B (Bld) [Mass/Vol] 7.1 pg/mL 0-100 [facility] Urea nitrogen/Creatinine [Mass ratio] 25.9 mg/mg 10-20 [facility] Laboratory - Hematology and Cell countsOrdered By: Darius Petersen on 01-12-2023 Erythrocyte distribution width (RBC) [Entitic vol] 42.6 fL 35.1-43.9 [facility] Erythrocyte distribution width (RBC) [Ratio] 13.2 % 11.6-14.6 [facility] Immature granulocytes/100 WBC (Bld) 0.400 % 0.0-0.9 [facility] Comment on above: IG% - Immature Granu locytes (promyelocytes, myelocytes and metamyelocytes) > 1% indicates that a LEFT SHIFT is Present. MCH (RBC) [Entitic mass] 29.4 pg 27.0-32.0 [facility] Nucleated RBC/100 WBC (Bld) [Ratio] 0 % 0-5 [facility] MCHC Auto (RBC) [Mass/Vol]Or dered By: Darius Petersen on 01-12-2023 MCHC (RBC) [Mass/Vol] 33.5 g/dL 32-36 [facility] No Panel InformationOrdered By: Darius Petersen on 01-12-2023 Estimated Creatinine Clearance Calc 47.86 ml/min [facility] Estimated GFR (MDRD) Amer 79 mL/min >60 [facility] Comment on above: GFR Calc Estimated GFR (MDRD) Non-Af Amer 65 mL/min >60 [facility] Comment on above: Non- GFR Calc Troponin I High Sensitivity 8 pg/mL 3.0-78.0 [facility] Comment on above: Please Note: [place] t Units and Gender Specific Reference Ranges. For more information see Policy Stat Procedure [place] High Sensitivity Troponin (TNIH) and attachments. Platelets bldOrdered By: Kusum Petersen on 01-12-2023 Platelets (Bld) [#/Vol] 253 10*3/uL 150-450 [facility] Review by pathologistOrdered By: Darius Petersen on 01-12-2023 Pathologist review Rey (Unsp spec) [Interp] Reviewed [facility] Comment on above: Previous reported re sult: Sveta herrera Edited by: RGOOD on 01/13/23:1119Neutrophilic leukocytosis.Clinical correlation necessary.Ryan Dcikinson M.D. 01/13/23 AMENDED REPORT 01/13/23 1119 PATH REV previously reported as: Sveta herrera Serum or plasma calcium westley urement (mass/volume)Ordered By: Darius Petersen on 01-12-2023 Calcium [Mass/Vol] 9.0 mg/dL 8.5-10.1 [facility] Serum or plasma creatinine m easurement (mass/volume)Ordered By: Darius Petersen on 01-12-2023 Creatinine [Mass/Vol] 1.16 mg/dL 0.70-1.30 [facility] Comment on above: The validity of the calculated GFR & GFRAA in patients over 70 years has not been determined. Clinical correlation is essential. Serum or plasma urea nitroge n measurement (mass/volume)Ordered By: Darius Petersen on 01-12-2023 Urea nitrogen [Mass/Vol] 30 mg/dL 7-18 [facility] Thin prep Papanicolaou smear with manual screeningOrdered By: Darius Petersen on 01-12-2023 Thin prep Papanicolaou smear with manual screening 5 5-15 [facility] No Panel InformationOrdered By: Milo Hubbard on 11-30-2022 Prostate Specific Antigen Total 10.70 ng/mL 0.0-4.0 [facility] Comment on above: This test was perfor med using the TPSA assay method for the[facility]. Values obtained with differentassay methods cannot be used interchangably.When changing PSA assays in the course of monitoring apatient, additional sequential testing should be carriedout to confirm baseline values. Absolute lymphocyte countOrd ered By: Wero Porter on 11-18-2022 Lymphocytes Auto (Unsp spec) [#/Vol] 2.79 10*3/uL 0.83-4.51 [facility] Basophil percentageOrdered B y: Wero Porter on 11-18-2022 Basophils/100 WBC (Bld) 0.9 % 0-1 [facility] Bilirubin [Mass/Vol] 0.50 mg/dL 0.20-1.00 [facility] Comment on above: For patients on eltr ombopag therapy, use of Dimension [place] TBIL is not recommended. Chloride [Moles/Vol] 101 mmol/L 98-107 [facility] Cholesterol [Mass/Vol] 112 mg/dL <200 [facility] Comment on above: <200 mg/dL Desirable 200-240 mg/dL Borderline >240 mg/dL High Risk Eosinophils/100 WBC (Bld) 4.7 % 0-5 [facility] Glucose [Mass/Vol] 88 mg/dL 74-106 [facility] Neutrophils (Bld) [#/Vol] 4.8 10*3/uL 2.0-7.7 [facility] Neutrophils/100 WBC (Bld) 53.3 % 47-70 [facility] Potassium [Moles/Vol] 3.7 mmol/L 3.5-5.1 [facility] Protein [Mass/Vol] 7.8 g/dL 6.4-8.2 [facility] Sodium [Moles/Vol] 136 mmol/L 136-145 [facility] Triglyceride [Mass/Vol] 203 mg/dL <199 [facility] Comment on above: The drugs N-Acetylcy steine and Metamizole may falsely depress this assay.Serum Triglycerides Reference Interval Normal <150 mg/dL Borderline high 150 - 199 mg/dL High 200 - 499 mg/dL Very High > or = 500 mg/dL WBC (Bld) [#/Vol] 9.1 10*3/uL 4.4-11.0 [facility] Blood erythrocytes count (nu mber/volume)Ordered By: Wero Porter on 11-18-2022 RBC (Bld) [#/Vol] 4.40 10*6/uL 4.6-6.2 [facility] Blood hemoglobin measurement (mass/volume)Ordered By: Wero Porter on 11-18-2022 Hemoglobin (Bld) [Mass/Vol] 12.7 g/dL 13.0-16.5 [facility] Blood lymphocytes/100 leukoc ytesOrdered By: Wero Porter on 11-18-2022 Lymphocytes/100 WBC (Bld) 30.8 % 19-41 [facility] Blood monocytes/100 leukocyt esOrdered By: Wero Porter on 11-18-2022 Monocytes/100 WBC (Bld) 10.0 % 0-10 [facility] Blood platelet mean volumeOr dered By: Wero Porter on 11-18-2022 Platelet mean volume (Bld) [Entitic vol] 11.1 fL 6.2-12.0 [facility] Determination of erythrocyte mean corpuscular volume (MCV)Ordered By: Wero Porter on 11-18-2022 MCV (RBC) [Entitic vol] 89.5 fL 80-94 [facility] Hematocrit Auto (Bld) [Volum e fraction]Ordered By: Wero Porter on 11-18-2022 Hematocrit (Bld) [Volume fraction] 39.4 % 40-54 [facility] Iron measurement (mass/mass) Ordered By: Wero Porter on 11-18-2022 Iron (Unsp spec) [Mass/Mass] 60 ug/dL 65-175 [facility] Laboratory - Chemistry and C hemistry - challengeOrdered By: Wero Porter on 11-18-2022 ALP [Catalytic activity/Vol] 70 U/L 45-117 [facility] ALT [Catalytic activity/Vol] 27 U/L 16-61 [facility] CO2 [Moles/Vol] 27.0 mmol/L 21.0-32.0 [facility] Cobalamin (Vitamin B12) [Mass/Vol] 281 pg/mL 211-911 [facility] Free T4 [Mass/Vol] 0.95 ng/dL 0.76-1.46 [facility] Globulin (S) [Mass/Vol] 3.9 g/dL 2.2-4.2 [facility] Urea nitrogen/Creatinine [Mass ratio] 22.4 mg/mg 10-20 [facility] Laboratory - Hematology and Cell countsOrdered By: Wero Porter on 11-18-2022 Erythrocyte distribution width (RBC) [Entitic vol] 42.5 fL 35.1-43.9 [facility] Erythrocyte distribution width (RBC) [Ratio] 12.9 % 11.6-14.6 [facility] Immature granulocytes/100 WBC (Bld) 0.300 % 0.0-0.9 [facility] Comment on above: IG% - Immature Granu locytes (promyelocytes, myelocytes and metamyelocytes) > 1% indicates that a LEFT SHIFT is Present. MCH (RBC) [Entitic mass] 28.9 pg 27.0-32.0 [facility] Nucleated RBC/100 WBC (Bld) [Ratio] 0 % 0-5 [facility] MCHC Auto (RBC) [Mass/Vol]Or dered By: Wero Porter on 11-18-2022 MCHC (RBC) [Mass/Vol] 32.2 g/dL 32-36 [facility] No Panel InformationOrdered By: Wero Porter on 11-18-2022 Estimated GFR (MDRD) Amer 95 mL/min >60 [facility] Comment on above: GFR Calc Estimated GFR (MDRD) Non-Af Amer 79 mL/min >60 [facility] Comment on above: Non- GFR Calc Thyroid Stimulating Hormone (TSH) 1.85 uIU/mL 0.358-3.74 [facility] Total Iron Binding Capacity 388 ug/dL 250-450 [facility] Urine Microalbumin/Creatinine Ratio 7.7 mg/g CRE <30 [facility] Platelets bldOrdered By: Phil Porter on 11-18-2022 Platelets (Bld) [#/Vol] 296 10*3/uL 150-450 [facility] Serum or plasma albumin westley urement (mass/volume)Ordered By: Wero Porter on 11-18-2022 Albumin [Mass/Vol] 3.9 g/dL 3.2-5.0 [facility] Serum or plasma albumin/glob ulin mass ratioOrdered By: Wero Porter on 11-18-2022 Albumin/Globulin [Mass ratio] 1.0 {ratio} 0.9-2.4 [facility] Serum or plasma calcium westley urement (mass/volume)Ordered By: Wero Porter on 11-18-2022 Calcium [Mass/Vol] 9.5 mg/dL 8.5-10.1 [facility] Serum or plasma cholesterol in HDL measurement (mass/volume)Ordered By: Wero Porter on 11-18-2022 Cholesterol in HDL [Mass/Vol] 39 mg/dL >40 [facility] Comment on above: The drugs N-Acetylcy steine and Metamizole may falsely depress this assay. Reference Range HDL <40 mg/dL Low HDL Cholesterol HDL >or= 60 mg/dL High HDL Cholesterol Serum or plasma cholesterol in VLDL measurement (mass/volume)Ordered By: Wero Porter on 11-18-2022 Cholesterol in VLDL [Mass/Vol] 41 mg/dL 5-40 [facility] Serum or plasma creatinine m easurement (mass/volume)Ordered By: Wero Porter on 11-18-2022 Creatinine [Mass/Vol] 0.98 mg/dL 0.70-1.30 [facility] Comment on above: The validity of the calculated GFR & GFRAA in patients over 70 years has not been determined. Clinical correlation is essential. Serum or plasma ferritin shameka surement (mass/volume)Ordered By: Wero Porter on 11-18-2022 Ferritin [Mass/Vol] 69 ng/mL 26-388 [facility] Serum or plasma iron saturat ion measurement (mass fraction)Ordered By: Wero Porter on 11-18-2022 Iron saturation [Mass fraction] 15.5 % 15.0-55.0 [facility] Serum or plasma low density lipoprotein (LDL) cholesterol measurement (mass/volume)Ordered By: Wero Porter on 11-18-2022 Cholesterol in LDL [Mass/Vol] 32 mg/dL 0-130 [facility] Serum or plasma urea nitroge n measurement (mass/volume)Ordered By: Wero Porter on 11-18-2022 Urea nitrogen [Mass/Vol] 22 mg/dL 7-18 [facility] Thin prep Papanicolaou smear with manual screeningOrdered By: Wero Porter on 11-18-2022 Thin prep Papanicolaou smear with manual screening 24 U/L 15-37 [facility] Thin prep Papanicolaou smear with manual screening 8 5-15 [facility] Thin prep Papanicolaou smear with manual screening 13.1 mg/L NO RANGE EST. [facility] Urine creatinine measurement (mass/volume)Ordered By: Wero Porter on 11-18-2022 Creatinine (U) [Mass/Vol] 170.00 mg/dL NO RANGE EST. [facility] Whole blood hemoglobin A1c/t otal hemoglobin ratio (mass fraction)Ordered By: Wero Porter on 11-18-2022 HbA1c (Bld) [Mass fraction] 6.8 % 3.8-5.6 [facility] Comment on above: Normal < 5.7 % Predi abetic 5.7 - 6.4 % Diabetic >or= 6.5 % Please note range changes. Basophil percentageOrdered B y: Tracy Dasilva on 08-17-2022 Bilirubin [Mass/Vol] 0.40 mg/dL 0.20-1.00 [facility] Comment on above: For patients on eltr ombopag therapy, use of Dimension [place] TBIL is not recommended. Chloride [Moles/Vol] 100 mmol/L 98-107 [facility] Glucose [Mass/Vol] 157 mg/dL 74-106 [facility] Comment on above: Fasting Glucose resu lt greater than or equal to 126 mg/dL suggests DIABETES MELLITUS per A.D.A. criteria. Potassium [Moles/Vol] 3.5 mmol/L 3.5-5.1 [facility] Protein [Mass/Vol] 7.9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 Body temperature 98.4 [degF] Roshni Ayers APRN.SENIOR ANALYTICAL CHEMIST Work Phone: [facility] 01-14-2023 17:46-0400 Body weight 91.54 kg Roshni Ayers APRN.SENIOR ANALYTICAL CHEMIST Work Phone: [facility] 01-14-2023 17:46-0400 Diastolic blood pressure 75 mm[Hg] Roshni Ayers APRN.SENIOR ANALYTICAL CHEMIST Work Phone: [facility] 01-14-2023 17:46-0400 Heart rate 111 /min Roshni Ayers APRN.SENIOR ANALYTICAL CHEMIST Work Phone: [facility] 01-14-2023 17:46-0400 Respiratory rate 24 /min Roshni Ayers APRN.SENIOR ANALYTICAL CHEMIST Work Phone: [facility] 01-14-2023 17:46-0400 SaO2% (BldA) [Mass fraction] 96 % Roshni Ayers APRN.SENIOR ANALYTICAL CHEMIST Work Phone: [facility] 01-14-2023 17:46-0400 Systolic blood pressure 146 mm[Hg] Roshni Ayers APRN.SENIOR ANALYTICAL CHEMIST Work Phone: [facility] 01-12-2023 18:23-0400 Diastolic blood pressure 56 mm[Hg] [facility] 01-12-2023 18:23-0400 Heart rate 97 /min [facility] 01-12-2023 18:23-0400 Respiratory rate 22 /min [facility] 01-12-2023 18:23-0400 Systolic blood pressure 131 mm[Hg] [facility] 01-12-2023 18:12-0400 SaO2% (BldA) [Mass fraction] 92 % [facility] 01-12-2023 14:41-0400 Body height 165.1 cm [facility] 01-12-2023 14:41-0400 Body mass index (BMI) [Ratio] 33.9 kg/m2 [facility] 01-12-2023 14:41-0400 Body temperature 96.9 [degF] [facility] 01-12-2023 14:41-0400 Body weight 92.39 kg [facility] 09-25-2021 09:32-0400 Body height 170.2 cm Sami Riggs MD Work Phone: [facility] 09-25-2021 09:32-0400 Body temperature 97.9 [degF] Sami Riggs MD Work Phone: [facility] 09-25-2021 09:32-0400 Body weight 93.53 kg Sami Riggs MD Work Phone: [facility] 09-25-2021 09:32-0400 Diastolic blood pressure 78 mm[Hg] Sami Riggs MD Work Phone: [facility] 09-25-2021 09:32-0400 Heart rate 105 /min Sami Riggs MD Work Phone: [facility] 09-25-2021 09:32-0400 SaO2% (BldA) [Mass fraction] 97 % Sami Riggs MD Work Phone: [facility] 09-25-2021 09:32-0400 Systolic blood pressure 136 mm[Hg] Sami Riggs MD Work Phone: [facility] Encounters Encounter Date Encounter Type Care Provider Facility Start: 08-27-2024 End: 08-27-[address] Wero Porter MD Work Phone: [facility] Work Phone: Start: 08-27-2024 End: 08-27-2024 Patient encounter procedure Danielle Wiseman HYDRAULIC RIVETER-C -[facility] [place] Work Phone: Start: 08-27-2024 End: 08-27-2024 ambulatory Danielle Wiseman NP Facility:[facility] Start: 07-25-2024 End: 07-25-[address] Wero Porter MD Work Phone: [facility] Work Phone: Start: 07-25-2024 End: 07-25-[address] Wero Porter MD -Laboratory, [place] Work Phone: Start: 07-25-2024 End: 07-25-2024 ambulatory Wero Porter Facility:[facility] Start: 06-21-2024 End: 06-21-[address] Wero Porter MD Work Phone: [facility] Work Phone: Start: 06-21-2024 End: 06-21-2024 Patient encounter procedure Arlet Duff -Laboratory Work Phone: Start: 06-21-2024 End: 06-21-2024 ambulatory Wero Porter Facility:[facility] Start: 05-17-2024 End: 05-17-2024 ambulatory WERO PORTER Facility:[facility] Start: 05-17-2024 End: 05-17-2024 Patient encounter procedure Shell Grissom APRN.CNP Work Phone: [facility] Comment on above: Otorrhea of left ear (Primary Dx) Start: 05-02-2024 End: 05-02-2024 Patient encounter procedure Dania Villalpando MD Work Phone: General Surgery Comment on above: Anal abscess (Primar y Dx); Perirectal abscess Start: 05-02-2024 End: 05-02-2024 ambulatory DANIA VILLALPANDO Facility:[facility] Start: 03-30-2024 End: 03-30-2024 ambulatory DANIA VILLALPANDO Facility:[facility] Start: 03-30-2024 End: 03-30-2024 Patient encounter procedure Dania Villalpando MD Work Phone: General Surgery Comment on above: Anal abscess (Primar y Dx); Perirectal abscess Start: 03-20-2024 End: 03-20-[address] Wero Porter MD -[facility] Work Phone: Start: 03-20-2024 End: 03-20-[facility] Start: 12-12-2023 End: 12-12-2023 ambulatory [facility] Facility:[facility] Start: 11-17-2023 End: 11-17-2023 [facility] Start: 07-21-2023 End: 07-21-2023 ambulatory [facility] Work Phone: Start: 07-21-2023 End: 07-21-2023 Patient encounter procedure [facility] Start: 07-06-2023 End: 07-06-2023 ambulatory [facility] Work Phone: Start: 07-06-2023 End: 07-06-2023 Patient encounter procedure [facility] Start: 06-08-2023 End: 06-08-2023 [facility] Start: 05-31-2023 End: 05-31-2023 ambulatory [facility] Work Phone: Start: 05-31-2023 End: 05-31-2023 Patient encounter procedure [facility] Start: 03-17-2023 End: 03-17-2023 ambulatory [facility] Work Phone: Start: 03-17-2023 End: 03-17-2023 [facility] Work Phone[facility] Start: 01-14-2023 End: 01-14-2023 Patient encounter procedure Roshni Ayers [facility] Work Phone: [facility] Comment on above: Bacterial pneumonia (Primary Dx) Start: 01-12-2023 End: 01-12-2023 Emergency department patient visit [facility]-Emergency Department Work Phone: Start: 12-08-2022 End: 12-08-2022 ambulatory [facility] Work Phone: Start: 12-08-2022 End: 12-08-2022 Patient encounter [facility] Work Phone: Start: 11-30-2022 End: 11-30-2022 ambulatory [facility] Work Phone: Start: 11-30-2022 End: 11-30-2022 [facility] Start: 11-18-2022 End: 11-18-2022 ambulatory [facility] Work Phone: Start: 11-18-2022 End: 11-18-2022 Patient encounter procedure [facility] Start: 08-17-2022 End: 08-17-2022 ambulatory [facility] Work Phone: Start: 08-17-2022 End: 08-17-2022 Patient encounter procedure [facility] Start: 07-28-2022 End: 07-28-2022 Patient encounter procedure [facility] Start: 07-15-2022 End: 07-15-2022 ambulatory [facility] Work Phone: Start: 07-15-2022 End: 07-15-2022 Patient encounter procedure [facility] Start: 04-06-2022 End: 04-06-2022 Patient encounter procedure [facility] Start: 10-08-2021 End: 10-08-2021 Patient encounter procedure [facility] Start: 10-06-2021 End: 10-06-2021 Patient encounter procedure [facility] Start: 09-25-2021 End: 09-25-2021 Patient encounter procedure Sami Riggs MD Work Phone: General Surgery Comment on above: Multinodular goiter (Primary Dx) Start: 09-18-2021 End: 09-18-2021 Patient encounter procedure [facility]-Ultrasound, [facility] Start: 09-09-2021 End: 09-09-2021 [facility] Start: 09-21-2017 End: 09-21-2017 Emergency department patient visit [facility] Start: 09-19-2017 End: 09-19-2017 Emergency department patient visit [facility] Procedures Date Procedure Procedure Detail Performing Clinician Start: 08-27-2024 X-ray of chest, PA a nd lateral views Dr. Wero Porter MD Work Phone: Start: 07-25-2024 Urnls dip stick/tabl et reagent auto microscopy Dr. Wero Porter MD Work Phone: Start: 07-25-2024 Urine microalbumin/creatinine ratio measurement Dr. Wero Porter MD Work Phone: Start: 06-21-2024 Assay of prostate sp ecific antigen total Dr. Wero Porter MD Work Phone: Comment on above: This test was perfor med using the [employer] tPSA method. Measured values of a patient sample can vary depending on the testing procedure used. PSA values determined on patient samples by different testing procedures cannot be used interchangeably. If there is a change in PSA assays while monitoring therapy, sequential testing should be performed to confirm baseline values. Start: 01-12-2023 CT angiography of ch est with contrast Start: 01-12-2023 Plain chest X-ray Start: 12-08-2022 MRI of pelvis with contrast Start: 09-18-2021 US scan of thyroid Start: 06-02-2007 Colonoscopy Sami ridley MD Work Phone: Plan of Treatment Date Care Activity Detail Author Start: 10-27-2032 Urine microalbumin profile DTaP,Tdap,Td Vaccine (3 - Td or Tdap) [facility] Start: 05-02-2024 End: 05-02-2024 Patient encounter procedure 05/02/2024 3:00 PM EST Office Visit [facility] [address] [address] Dania iVllalpando MD [address] [place] [address] 2 wk f/u (last sen 03/30/24) General Surgery Comment on above: 2 wk f/u (last sen 1 05/31/23) Start: 04-18-2024 Advance Directive Discussion Advance Directive Discussion [facility] Start: 03-30-2024 End: 06-29-2024 Bacteria identified in Wound by Culture ABSCESS AND WOUND CULTURE WITH GRAM STAIN Microbiology Routine Anal abscess Expected: 03/30/2024, Expires: 06/29/2024 [facility] Work Phone: Comment on above: Expected: 03/30/2024 , Expires: 06/29/2024 Start: 04-18-2023 Advance Directive Discussion Advance Directive Discussion [facility] Start: 01-12-2023 [facility] Start: 12-17-2022 Influenza vaccination Influenza Vacc ine (#1) [facility] Start: 04-18-2022 Advance Directive Discussion Advance Directive Discussion [facility] Start: 04-18-2022 Depression Assessment Depression Ass essment [facility] Start: 12-17-2021 Influenza vaccination INFLUENZ A (Season Ended) [facility] Start: 06-17-2021 Covid-19 Vaccine (3 - Booster for Celsa series) Covid-19 Vaccine (3 - Booster for Celsa series) [facility] Start: 04-18-2021 ADVANCE DIRECTIVE DISCUSSION ADVANCE DIRECTIVE DISCUSSION [facility] Start: 06-02-2017 Colonoscopy COLONOSCOPY [facility] Start: 06-02-2017 COLORECTAL CANCER SCREENING COLORECTAL CANCER SCREENING [facility] Start: 10-18-2012 Hepatitis B surface antibody level LDL CHOLESTEROL [facility] Start: 08-25-2012 3 comp foot exam completed DIABETIC FOOT EXAM [facility] Start: 08-25-2012 Diabetic foot examination Diabetic Foot Exam [facility] Start: 04-20-2012 Hemoglobin A1c measurement HbA1C [facility] Start: 04-20-2012 Hemoglobin A1c/Hemoglobin.total in Blood HBA1C [facility] Start: 01-31-2012 Glaucoma screening Dilated Retinal E xam [facility] Start: 01-31-2012 Hepatitis C antibody , confirmatory test DILATED RETINAL EXAM [facility] Start: 11-07-2011 Hepatitis B screening URINE ALBUMIN:CREATININE RATIO [facility] Start: 2007 Hepatitis B Vaccine (1 of 3 - Risk 3-dose series) Hepatitis B Vaccine (1 of 3 - Risk 3-dose series) [facility] Start: 11-26-1997 SHINGRIX VACCINE (1 of 2) SHINGRIX VACCINE (1 of 2) [facility] Start: 11-26-1992 COLOGUARD (FIT-DNA) COLOGUARD (FIT-D NA) [facility] Start: 11-26-[address] COLONOGRAPHY [facility] Start: 11-26-1992 FECAL OCCULT BLOOD FECAL OCCULT BLOO D [facility] Start: 11-26-1992 SIGMOIDOSCOPY SIGMOIDOSCOPY [facility] Start: 11-26-1966 Urine microalbumin profile [facility] Start: 11-26-1965 ANNUAL PCP TEAM RADIOACTIVITY TECHNICIAN MAI DISEASE VISIT ANNUAL PCP TEAM CHRONIC DISEASE VISIT [facility] Start: 11-26-1965 Anxiety Screening Anxiety Screening [facility] Start: 11-26-1965 BP CONTROLLED (<130/80) BP CONTROLLE D (<130/80) [facility] Start: 11-26-1965 Depression Screening Depression Scre ening [facility] Start: 11-26-1965 HEPATIT[facility] Start: 11-26-1965 Hepatitis C screening Hepatitis C Sc [facility] Start: 1959 Adult depression screening assessment DEPRESSION SCREENING [facility] Start: 11-26-1953 Pneumococcal Vaccine : 65+ (1 - PCV) Pneumococcal Vaccine: 65+ (1 - PCV) [facility] Start: 11-26-1953 PNEUMOCOCCAL: 65+ (1 - PCV) PNEUMOCOCCAL: 65+ (1 - PCV) [facility] Start: 11-26-1952 COVID-19 VACCINE (#1) COVID-19 VACCI NE (#1) [facility] Start: 1945 ABDOMINAL AORTIC ANEURYSM SCREENING ABDOMINAL AORTIC ANEURYSM SCREENING [facility] Patient Education ED COPD Flare [facility] Work Phone: Patient referral [facility] Work Phone: Immunizations Immunization Date Immunization Notes Care Provider Liz hanna 02-16-2022 influenza virus vaccine, unspecified formulation Roshni Ayers APRN.[facility] Work Phone: [facility] 02-11-2010 influenza virus vaccine, unspecified formulation Sami Riggs MD Work Phone: [facility] Work Phone: 01-08-2009 influenza virus vaccine, unspecified formulation Sami Riggs MD Work Phone: [facility] Work Phone: 02-09-2008 influenza virus vaccine, unspecified formulation Sami Riggs MD Work Phone: [facility] Work Phone: Payers Date Payer Category Payer Self-pay [id number] 2021 Medicare [employer] [place] [id number] 2021-Present [phone] [address] [place] [address] O [id number] 2021 Medicare [employer] [place] [id number] 2021-Present [phone] [address] [place] [address] [facility] [id number] 2021 Medicare [id number] Medicare [id number] Medicare [id number] Unknown [id number] Unknown [id number] Unknown [id number] Unknown [id number] Unknown [id number] Unknown [id number] Social History Date Type Detail Facility Start: 01-21-2020 End: 01-12-2023 Tobacco smoking status [facility] Unknown if ever smoked [facility] Start: 01-21-2020 Spouse/ Signif icant Other [facility] Start: 1945 Sex Assigned At Male W [facility] Start: 01-12-2023 End: 01-14-2023 Tobacco smoking status COIS Ex-smoker [facility] End: 04-18-1995 History of tobacco use Current smoker [facility] Start: 09-25-2021 End: 01-14-2023 Alcohol intake Current drinker of alcohol (finding) [facility] Start: 1945 Sex Assigned At Not on file C [facility] Start: 09-15-2021 End: 09-25-2021 Exposure to SARS-CoV-2 (event) Not sure [facility] End: 04-18-1995 History of tobacco use Cigarette Smoker [facility] Start: 01-14-2023 End: 03-30-2024 Tobacco use and exposure Former smokeless tobacco user [facility] Start: 01-14-2023 End: 03-30-2024 History of Social function [facility] Start: 01-14-2023 End: 03-30-2024 Tobacco use panel [facility] Start: 03-31-2024 End: 05-17-2024 Alcoholic beverage intake Ex-drinker (finding) [facility] National Score (1-100), lower number is lower risk 72 [facility] Start: 07-04-2024 End: 07-30-2024 Sex Male (finding) [facility] Clinical Notes 05-12-2007 to 08-30-2024 Shell Grissom APRN.SENIOR ANALYTICAL CHEMIST - 05/17/2024 12:43 PM Dania Orellana MD - 05/03/2024 6:53 PM Dania Orellana MD - 03/31/2024 6:59 AM Lukasz Pinto MA - 03/30/2024 11:21 AM EST Note Date & Type Note Facility 08-30-2024 Radiology Diagnostic study note [facility] Imaging Services [address] [place] [id number] Chest PA and Lateral MR#: [id number] Acct: [id number] Name: YOUNG ALBRIGHT Rep #: [id number] : 1945 M 78 From: Yevgeniy Baird MD PCP: Dr. Wero Porter MD Status: RE G CLI Study:Chest PA and Lateral Date of Exam: 08/27/24 Exam# [id number] Ordering Dr: Kenn Wiseman HYDRAULIC RIVETER HYDRAULIC RIVETER-C PROCEDURE: CHEST PA AND LATERAL 08/27/2024 REASON FOR EXAM: COUGH TECHNIQUE: Frontal and lateral views of the chest. COMPARISON: Chest x-ray of 01/12/2023. RAD/Chest PA and Lateral IMPRESSION: Left hemidiaphragm elevation appear stable, with stable left basilar atelectasisand/or scarring, compared with the prior study of 01/12/2023. No new or worsened pneumonic process is seen. No pleural effusion or pneumothorax is evident. The cardiomediastinal silhouette is remarkable for a calcified aorta. No evidence of cardiomegaly. Mild thoracic spine degenerative changes are seen, along with DISH. Old left rib fractures are again seen. Reading Location: [place] [address] CC: JUNIOR Wiseman; Dr. Wero Porter MD ~ Cooler Operator: Signed [facility] 05-17-2024 Note HNO ID: [id number] Author: SHELL GRISSOM APRN.SENIOR ANALYTICAL CHEMIST Service: ? Author Type: Nurse Practitioner Type: Progress Notes Filed: 05/17/2024 12:46 Note Text: Subjective HPI HPI Young Albright is a 78 year old male who presents today for CC of left ear pain/drainage. This started 2 weeks ago. Has tried otc medicastion for relief. Symptoms are worsened by nothing. Recent uri. Also uses hearing aids regularly. .Patient presents with: Ear Problem: L ear pain and drainage x2 weeks PAST MEDICAL HISTORY Diagnosis Date Backache, unspecified [...] jyothi cyst posterior neck ALLERGIES Lisinopril MEDICATIONS amoxicillin-clavulanate potassium (AUGMENTIN) 875-125 mg per tablet Take 1 tablet by mouth two times a day for 7 days. ofloxacin (FLOXIN) 0.3 % otic solution Use 10 Drops in the left ear once daily for 7 days. mometasone 200 mcg/actuation HFA Inhale 2 Puffs as instructed two times a day. chlorthalidone (HYGROTON) 25 mg tablet Take 25 mg by mouth once daily. finasteride (PROSCAR) 5 mg tablet Take 5 mg by mouth once daily. Magnesium Oxide 420 mg tab Take by mouth once daily. cholecalciferol (VITAMIN D3) 1,000 unit tab tablet Take 3 tablets by mouth once daily. semaglutide (OZEMPIC SUBCUTANEOUS) Inject subcutaneously one time a week. traZODone (DESYREL) 50 mg tablet Take 50 mg by mouth daily at bedtime. levoFLOXacin (LEVAQUIN) 500 mg tablet Take 500 mg by mouth once daily. (Patient not taking: Reported on 03/30/2024) atorvastatin (LIPITOR) 10 mg tablet Take 10 mg by mouth once daily. gabapentin (NEURONTIN) 300 mg capsule (Patient not taking: Reported on 09/25/2021) metFORMIN (GLUCOPHAGE) 500 mg tablet Take 1 tablet by mouth three times daily. simvastatin (ZOCOR) 40 mg tablet Take 1 tablet by mouth daily at bedtime. (Patient not taking: Reported on 09/25/2021) Phentermine HCl 37.5 mg tablet Take 1 tablet by mouth daily before breakfast. (Patient not taking: Reported on 09/25/2021) tiotropium 18 mcg Cap Inhale 18 mcg as instructed once daily. budesonide-formoterol (SYMBICORT) 160-4.5 mcg/actuation inhaler Inhale 2 Puffs as instructed twice daily. (Patient not taking: Reported on 03/30/2024) glipiZIDE 5 mg ORAL tablet Take 1 tablet by mouth four times daily. (Patient not taking: Reported on 09/25/2021) losartan (COZAAR) 100 mg ORAL tablet Take 1 tablet by mouth once daily. traMADOL 50 mg ORAL tablet Take 1 tablet by mouth. take daily as needed for pain albuterol HFA 90 mcg/Actuation INHALATION inhaler Inhale 2 Puffs as instructed every 4 hours as needed. FAMILY HISTORY Problem Relation Age of Onset Diabetes Mother late in life Stroke Brother Colon Cancer Other none Coronary Artery Disease Other none Prostate Cancer Other none Social History Tobacco Use Smoking status: Former Current packs/day: 0.00 Types: Cigarettes Quit date: 04/18/1995 Years since quittin.1 Smokeless tobacco: Former Vaping Use Vaping status: Never Used Substance Use Topics Alcohol use: Not Currently Comment: QUIT 1980 Drug use: Not Currently Comment: USE ON THE ROS Objective Blood pressure 158/79, pulse 102, temperature 36.4 ?C (97.6 ?F), resp. rate 18, weight 82.3 kg (181 lb 7 oz), SpO2 96%. Physical Exam Constitutional: General: He is not in acute distress. Appearance: He is not toxic-appearing or diaphoretic. HENT: Head: Normocephalic and atraumatic. Right Ear: Hearing, tympanic membrane, ear canal and external ear normal. Left Ear: Hearing and external ear normal. Drainage, swelling and tenderness present. Nose: Nose normal. Mouth/Throat: Lips: [place]. Mouth: Mucous membranes are moist. Pulmonary: Effort: Pulmonary effort is normal. No accessory muscle usage or respiratory distress. Lymphadenopathy: Cervical: No cervical adenopathy. Right cervical: No superficial cervical adenopathy. Left cervical: No superficial cervical adenopathy. Neurological: Mental Status: He is alert and oriented to person, place, and time. ASSESSMENT/PLAN: 1. Otorrhea of left ear - ICD9: 388.60, ICD10: H92.12 Treat for OM and OE F/u with ent if s/s persist - AMOXICILLIN 875 MG-POTASSIUM CLAVULANATE 125 MG TABLET - OFLOXACIN 0.3 % EAR DROPS Shell Grissom APRN.[facility] 05-17-2024 History of Present illness Narrative Subjective HPI HPI Young Albright is a 78 year old male who presents today for CC of left ear pain/drainage. This started 2 weeks ago. Has tried otc medicastion for relief. Symptoms are worsened by nothing. Recent uri. Also uses hearing aids regularly. .Patient presents with: Ear Problem: L ear pain and drainage x2 weeks PAST MEDICAL HISTORY Diagnosis Date Backache, unspecified [...] jyothi cyst posterior neck ALLERGIES Lisinopril MEDICATIONS amoxicillin-clavulanate potassium (AUGMENTIN) 875-125 mg per tablet Take 1 tablet by mouth two times a day for 7 days. ofloxacin (FLOXIN) 0.3 % otic solution Use 10 Drops in the left ear once daily for 7 days. mometasone 200 mcg/actuation HFA Inhale 2 Puffs as instructed two times a day. chlorthalidone (HYGROTON) 25 mg tablet Take 25 mg by mouth once daily. finasteride (PROSCAR) 5 mg tablet Take 5 mg by mouth once daily. Magnesium Oxide 420 mg tab Take by mouth once daily. cholecalciferol (VITAMIN D3) 1,000 unit tab tablet Take 3 tablets by mouth once daily. semaglutide (OZEMPIC SUBCUTANEOUS) Inject subcutaneously one time a week. traZODone (DESYREL) 50 mg tablet Take 50 mg by mouth daily at bedtime. levoFLOXacin (LEVAQUIN) 500 mg tablet Take 500 mg by mouth once daily. (Patient not taking: Reported on 03/30/2024) atorvastatin (LIPITOR) 10 mg tablet Take 10 mg by mouth once daily. gabapentin (NEURONTIN) 300 mg capsule (Patient not taking: Reported on 09/25/2021) metFORMIN (GLUCOPHAGE) 500 mg tablet Take 1 tablet by mouth three times daily. simvastatin (ZOCOR) 40 mg tablet Take 1 tablet by mouth daily at bedtime. (Patient not taking: Reported on 09/25/2021) Phentermine HCl 37.5 mg tablet Take 1 tablet by mouth daily before breakfast. (Patient not taking: Reported on 09/25/2021) tiotropium 18 mcg Cap Inhale 18 mcg as instructed once daily. budesonide-formoterol (SYMBICORT) 160-4.5 mcg/actuation inhaler Inhale 2 Puffs as instructed twice daily. (Patient not taking: Reported on 03/30/2024) glipiZIDE 5 mg ORAL tablet Take 1 tablet by mouth four times daily. (Patient not taking: Reported on 09/25/2021) losartan (COZAAR) 100 mg ORAL tablet Take 1 tablet by mouth once daily. traMADOL 50 mg ORAL tablet Take 1 tablet by mouth. take daily as needed for pain albuterol HFA 90 mcg/Actuation INHALATION inhaler Inhale 2 Puffs as instructed every 4 hours as needed. FAMILY HISTORY Problem Relation Age of Onset Diabetes Mother late in life Stroke Brother Colon Cancer Other none Coronary Artery Disease Other none Prostate Cancer Other none Social History Tobacco Use Smoking status: Former Current packs/day: 0.00 Types: Cigarettes Quit date: 04/18/1995 Years since quittin.1 Smokeless tobacco: Former Vaping Use Vaping status: Never Used Substance Use Topics Alcohol use: Not Currently Comment: QUIT 1980 Drug use: Not Currently Comment: USE ON THE ROS Objective Blood pressure 158/79, pulse 102, temperature 36.4 C (97.6 F), resp. rate 18, weight 82.3 kg (181 lb 7 oz), SpO2 96%. Physical Exam Constitutional: General: He is not in acute distress. Appearance: He is not toxic-appearing or diaphoretic. HENT: Head: Normocephalic and atraumatic. Right Ear: Hearing, tympanic membrane, ear canal and external ear normal. Left Ear: Hearing and external ear normal. Drainage, swelling and tenderness present. Nose: Nose normal. Mouth/Throat: Lips: [place]. Mouth: Mucous membranes are moist. Pulmonary: Effort: Pulmonary effort is normal. No accessory muscle usage or respiratory distress. Lymphadenopathy: Cervical: No cervical adenopathy. Right cervical: No superficial cervical adenopathy. Left cervical: No superficial cervical adenopathy. Neurological: Mental Status: He is alert and oriented to person, place, and time. ASSESSMENT/PLAN: 1. Otorrhea of left ear - ICD9: 388.60, ICD10: H92.12 Treat for OM and OE F/u with ent if s/s persist - AMOXICILLIN 875 MG-POTASSIUM CLAVULANATE 125 MG TABLET - OFLOXACIN 0.3 % EAR DROPS Shell Grissom APRN.[employer] documented in this encounter [facility] 05-03-2024 Note HNO ID: [id number] Author: DANIA VILLALPANDO MD Service: ? Author Type: Physician Type: Progress Notes Filed: 05/03/2024 18:54 Note Text: FOLLOW UP VISIT - ABSCESS [facility] NO.: [id number] DATE OF SERVICE: 05/02/2024 : 1945 REFERRING PHYSICIAN: Wero Porter MD, Young is a patient I am following for a perirectal abscess. I performed an incision and drainage of the perirectal abscess on March 30, 2024. The patient notes no complaints of fever since the procedure. Pain has been minimal. The patient denies any drainage from the site. VITALS: Blood pressure 150/78, pulse 85, SpO2 96%. On examination, the incision site is healed with no drainage noted. The packing was removed. Assessment IMPRESSION: Status post incision and drainage of perirectal abscess abscess PLAN: The patient is instructed to keep the wound dry for the next few days but may shower. If there are any problems or signs of worsening wound infection, the patient is to contact me immediately. Dressing should be changed once daily or more often if it becomes soaked. Diagnoses: (K61.0) Anal abscess (primary encounter diagnosis) (K61.1) Perirectal abscess Return to Clinic: The patient is instructed to follow-up with me as needed. Dania Villalpando MD [facility] 05-03-2024 History of Present illness Narrative FOLLOW UP VISIT - ABSCESS [facility] NO.: [id number] DATE OF SERVICE: 05/02/2024 : 1945 REFERRING PHYSICIAN: Wero Porter MD, MD Young is a patient I am following for a perirectal abscess. I performed an incision and drainage of the perirectal abscess on March 30, 2024. The patient notes no complaints of fever since the procedure. Pain has been minimal. The patient denies any drainage from the site. VITALS: Blood pressure 150/78, pulse 85, SpO2 96%. On examination, the incision site is healed with no drainage noted. The packing was removed. Assessment IMPRESSION: Status post incision and drainage of perirectal abscess abscess PLAN: The patient is instructed to keep the wound dry for the next few days but may shower. If there are any problems or signs of worsening wound infection, the patient is to contact me immediately. Dressing should be changed once daily or more often if it becomes soaked. Diagnoses: (K61.0) Anal abscess (primary encounter diagnosis) (K61.1) Perirectal abscess Return to Clinic: The patient is instructed to follow-up with me as needed. Dania Villalpando MD documented in this encounter [facility] 03-31-2024 Note HNO ID: [id number] Author: DANIA VILLALPANDO MD Service: ? Author Type: Physician Type: Progress Notes Filed: 03/31/2024 07:04 Note Text: HISTORY AND PHYSICAL Young Albright 1945 REFERRING PHYSICIAN: Wero Porter MD CHIEF COMPLAINT: Consult and Procedure (Incision and drainage of perirectal abscess) HPI: Young is a 78 year old male with a complaint of a perirectal abscess. he has noticed this abscess for the past 7 days. he notes purulent discharge from the abscess. he notes a history of diabetes. The patient was seen by his primary care physician. He was not was started on oral antibiotics. The patient is being seen by me today at the request of Dr. Wero Porter MD, MD for my opinion and advice regarding perirectal abscess. SIGNIFICANT MEDICAL PROBLEMS: PAST MEDICAL HISTORY Diagnosis Date Backache, unspecified 04/18/1988 fall off of a ladder, WC COPD (chronic obstructive pulmonary disease) (HCC) Diabetes mellitus (HCC) Essential hypertension History of colonic polyps Hypercholesterolemia Insomnia Lumbar radiculopathy Prostatitis, unspecified Pure hyperglyceridemia Thyroid nodule 2021 OPERATIONS: PAST SURGICAL HISTORY Procedure Laterality Date COLONOSCOPY FLX DX W/COLLJ SPEC WHEN PFRMD 06/02/07 Normal colon PAST SURGICAL HISTORY OF neck lesion REM LESION NEC,HND,SCAL 2.1-3.0CM 05/24/07 Exc jyothi cyst posterior neck CURRENT MEDICATIONS: Current Outpatient Medications Medication Sig Dispense Refill chlorthalidone (HYGROTON) 25 mg tablet Take 25 mg by mouth once daily. finasteride (PROSCAR) 5 mg tablet Take 5 mg by mouth once daily. Magnesium Oxide 420 mg tab Take by mouth once daily. cholecalciferol (VITAMIN D3) 1,000 unit tab tablet Take 3 tablets by mouth once daily. semaglutide (OZEMPIC SUBCUTANEOUS) Inject subcutaneously one time a week. traZODone (DESYREL) 50 mg tablet Take 50 mg by mouth daily at bedtime. atorvastatin (LIPITOR) 10 mg tablet Take 10 mg by mouth once daily. metFORMIN (GLUCOPHAGE) 500 mg tablet Take 1 tablet by mouth three times daily. 270 tablet 0 tiotropium 18 mcg Cap Inhale 18 mcg as instructed once daily. losartan (COZAAR) 100 mg ORAL tablet Take 1 tablet by mouth once daily. 30 tablet 5 traMADOL 50 mg ORAL tablet Take 1 tablet by mouth. take daily as needed for pain 0 albuterol HFA 90 mcg/Actuation INHALATION inhaler Inhale 2 Puffs as instructed every 4 hours as needed. 1 Inhaler 11 clindamycin (CLEOCIN) 300 mg capsule Take 1 capsule by mouth three times a day for 7 days. 21 capsule 0 levoFLOXacin (LEVAQUIN) 500 mg tablet Take 500 mg by mouth once daily. (Patient not taking: Reported on 03/30/2024) gabapentin (NEURONTIN) 300 mg capsule (Patient not taking: Reported on 09/25/2021) simvastatin (ZOCOR) 40 mg tablet Take 1 tablet by mouth daily at bedtime. (Patient not taking: Reported on 09/25/2021) 90 tablet 3 Phentermine HCl 37.5 mg tablet Take 1 tablet by mouth daily before breakfast. (Patient not taking: Reported on 09/25/2021) 30 tablet 0 budesonide-formoterol (SYMBICORT) 160-4.5 mcg/actuation inhaler Inhale 2 Puffs as instructed twice daily. (Patient not taking: Reported on 03/30/2024) glipiZIDE 5 mg ORAL tablet Take 1 tablet by mouth four times daily. (Patient not taking: Reported on 09/25/2021) 360 tablet 3 No current facility-administered medications for this visit. ALLERGIES: Lisinopril PERSONAL HISTORY: Social History Tobacco Use Smoking status: Former Current packs/day: 0.00 Types: Cigarettes Quit date: 04/18/1995 Years since quittin.9 Smokeless tobacco: Former Vaping Use Vaping status: Never Used Substance Use Topics Alcohol use: Not Currently Comment: QUIT 1980 Drug use: Not Currently Comment: USE ON THE FAMILY HISTORY: FAMILY HISTORY Problem Relation Age of Onset Diabetes Mother late in life Stroke Brother Colon Cancer Other none Coronary Artery Disease Other none Prostate Cancer Other none REVIEW OF SYMPTOMS: Noted below PHYSICAL EXAMINATION: General: The patient is 78 year old male, well nourished, well hydrated in no acute distress. The patient is oriented to time, place, and person. VITALS: Blood pressure 144/78, pulse 81, temperature 36.4 ?C (97.5 ?F), temperature source Temporal, SpO2 98%. There is no height or weight on file to calculate BMI. HEENT: Normal cephalic, atraumatic, pupils are equally round, sclera are anicteric, mucous membranes are moist, oropharynx is clear. Neck has no masses, asymmetry or lymphadenopathy. Thyroid is unremarkable. Respiratory: Clear to auscultation and percussion. Normal respiratory excursion and pattern. Cardiac: Examination is regular rate and rhythm. Abdominal exam: Soft, nontender, with no palpable masses. No hepatosplenomegaly. No palpable hernias. Rectal exam: Normal external anatomy, no significant hemorrhoids or masses. Digital rectal exam - normal tone, no masses (more content not included)... [facility] 03-31-2024 History of Present illness Narrative HISTORY AND PHYSICAL Young Albright 1945 REFERRING PHYSICIAN: Wero Porter MD CHIEF COMPLAINT: Consult and Procedure (Incision and drainage of perirectal abscess) HPI: Young is a 78 year old male with a complaint of a perirectal abscess. he has noticed this abscess for the past 7 days. he notes purulent discharge from the abscess. he notes a history of diabetes. The patient was seen by his primary care physician. He was not was started on oral antibiotics. The patient is being seen by me today at the request of Dr. Wero Porter MD, MD for my opinion and advice regarding perirectal abscess. SIGNIFICANT MEDICAL PROBLEMS: PAST MEDICAL HISTORY Diagnosis Date Backache, unspecified 04/18/1988 fall off of a ladder, WC COPD (chronic obstructive pulmonary disease) (HCC) Diabetes mellitus (HCC) Essential hypertension History of colonic polyps Hypercholesterolemia Insomnia Lumbar radiculopathy Prostatitis, unspecified Pure hyperglyceridemia Thyroid nodule 2021 OPERATIONS: PAST SURGICAL HISTORY Procedure Laterality Date COLONOSCOPY FLX DX W/COLLJ SPEC WHEN PFRMD 06/02/07 Normal colon PAST SURGICAL HISTORY OF neck lesion REM LESION NEC,HND,SCAL 2.1-3.0CM 05/24/07 Exc jyothi cyst posterior neck CURRENT MEDICATIONS: Current Outpatient Medications Medication Sig Dispense Refill chlorthalidone (HYGROTON) 25 mg tablet Take 25 mg by mouth once daily. finasteride (PROSCAR) 5 mg tablet Take 5 mg by mouth once daily. Magnesium Oxide 420 mg tab Take by mouth once daily. cholecalciferol (VITAMIN D3) 1,000 unit tab tablet Take 3 tablets by mouth once daily. semaglutide (OZEMPIC SUBCUTANEOUS) Inject subcutaneously one time a week. traZODone (DESYREL) 50 mg tablet Take 50 mg by mouth daily at bedtime. atorvastatin (LIPITOR) 10 mg tablet Take 10 mg by mouth once daily. metFORMIN (GLUCOPHAGE) 500 mg tablet Take 1 tablet by mouth three times daily. 270 tablet 0 tiotropium 18 mcg Cap Inhale 18 mcg as instructed once daily. losartan (COZAAR) 100 mg ORAL tablet Take 1 tablet by mouth once daily. 30 tablet 5 traMADOL 50 mg ORAL tablet Take 1 tablet by mouth. take daily as needed for pain 0 albuterol HFA 90 mcg/Actuation INHALATION inhaler Inhale 2 Puffs as instructed every 4 hours as needed. 1 Inhaler 11 clindamycin (CLEOCIN) 300 mg capsule Take 1 capsule by mouth three times a day for 7 days. 21 capsule 0 levoFLOXacin (LEVAQUIN) 500 mg tablet Take 500 mg by mouth once daily. (Patient not taking: Reported on 03/30/2024) gabapentin (NEURONTIN) 300 mg capsule (Patient not taking: Reported on 09/25/2021) simvastatin (ZOCOR) 40 mg tablet Take 1 tablet by mouth daily at bedtime. (Patient not taking: Reported on 09/25/2021) 90 tablet 3 Phentermine HCl 37.5 mg tablet Take 1 tablet by mouth daily before breakfast. (Patient not taking: Reported on 09/25/2021) 30 tablet 0 budesonide-formoterol (SYMBICORT) 160-4.5 mcg/actuation inhaler Inhale 2 Puffs as instructed twice daily. (Patient not taking: Reported on 03/30/2024) glipiZIDE 5 mg ORAL tablet Take 1 tablet by mouth four times daily. (Patient not taking: Reported on 09/25/2021) 360 tablet 3 No current facility-administered medications for this visit. ALLERGIES: Lisinopril PERSONAL HISTORY: Social History Tobacco Use Smoking status: Former Current packs/day: 0.00 Types: Cigarettes Quit date: 04/18/1995 Years since quittin.9 Smokeless tobacco: Former Vaping Use Vaping status: Never Used Substance Use Topics Alcohol use: Not Currently Comment: QUIT 1980 Drug use: Not Currently Comment: USE ON THE FAMILY HISTORY: FAMILY HISTORY Problem Relation Age of Onset Diabetes Mother late in life Stroke Brother Colon Cancer Other none Coronary Artery Disease Other none Prostate Cancer Other none REVIEW OF SYMPTOMS: Noted below PHYSICAL EXAMINATION: General: The patient is 78 year old male, well nourished, well hydrated in no acute distress. The patient is oriented to time, place, and person. VITALS: Blood pressure 144/78, pulse 81, temperature 36.4 C (97.5 F), temperature source Temporal, SpO2 98%. There is no height or weight on file to calculate BMI. HEENT: Normal cephalic, atraumatic, pupils are equally round, sclera are anicteric, mucous membranes are moist, oropharynx is clear. Neck has no masses, asymmetry or lymphadenopathy. Thyroid is unremarkable. Respiratory: Clear to auscultation and percussion. Normal respiratory excursion and pattern. Cardiac: Examination is regular rate and rhythm. Abdominal exam: Soft, nontender, with no palpable masses. No hepatosplenomegaly. No palpable hernias. Rectal exam: Normal external anatomy, no significant hemorrhoids or masses. Digital rectal exam - normal tone, no masses or other abnormalities, stool in vault, hemoccult negative. Extremities: no clubbing, cyanosis or edema. No adenopathy. Other: Perirectal abscess - a minimal amount of of fluctuance with a 3cm x 3cm area of surrounding erythema. The skin overlying the point of maximal fluctance is not viable. LABORATORY VALUES: As Noted RADIOLOGIC STUDIES: As Noted PROCEDURE: INCISION AND DRAINAGE OF PERIRECTAL ABSCESS After consent was obtained and the site, person, and procedure verified, the patient`s skin was prepped and draped in the usual fashion. A combination of Lidocaine and Marcaine was injected into the skin. A linear incision was made over the point of maximal fluctuance. A small amount of purulent materal was drained. A culture swab was obtained. The abscess was then unroofed. The cavity was packed with iodoform gauze. The patient tolerated the procedure well. Assessment IMPRESSION: STATUS POST INCISION AND DRAINAGE OF PERIRECTAL ABSCESS PLAN: Young is instructed to remove the packing in 1 days. If the dressing becomes soaked or had significant drainage, the dressing should be changed. If there is minor bleeding from this skin edge, the patient should hold pressure on the incision. If there is continued bleeding, the patient should contact our office immediately. The patient should wash the wound with gentle soap and water. he may shower. The wound should not be immersed in a pool, bathtub, or even hot tub. The patient was given a prescription for clindamycin given the fact that this looks potentially like an MRSA infection more so than a true perirectal abscess A letter was sent to Dr. Wero Porter MD, MD indicating the above finding for this patient. Diagnoses: (K61.0) Anal abscess (primary encounter diagnosis) (K61.1) Perirectal abscess Return to Clinic: The patient is instructed to follow-up with me in 2 weeks. Dania Villalpando MD REVIEW OF SYSTEMS: General: The patient denies fatigue, denies weight loss, denies weight gain, denies feeling hot, and denies feelings of cold. Eyes: The patient denies glaucoma, denies eye injury/surgery, wears glasses or contacts. Ear/Nose/Throat: The patient denies allergies, denies hayfever, denies ear infections, and denies bloody noses. Cardiovascular: The patient denies chest pain, denies heart disease, denies high blood pressure,denies cardiac stent, denies prior heart attack, denies irregular heart beat, denies high cholesterol, denies poor circulation, denies heart failure, other cardiac issues, NOTES claudication, denies cold feet, denies peripheral arterial stent. Respiratory: The patient denies tuberculosis, denies pneumonia, denies frequent cough, denies pulmonary embolism, NOTES shortness of breath, and denies coughing up blood. Gastrointestinal: The patient denies difficulty swallowing, denies acid reflux, denies ulcers, denies vomiting, denies jaundice/hepatitis, denies gallbladder problems, denies black or tarry stools, denies hemorrhoids, denies bleeding from rectum, denies diverticulitis, NOTES constipation, denies diarrhea, denies loss of stool [...] diseases. Musculoskeletal: The patient denies back pain/injury, denies back problems, denies sciatica, denies knee/foot trouble, denies arthritis, or denies gout. When was patient's last Mammogram screening? N/A Last Colonoscopy: N/A Lukasz Garcia MA documented in this encounter [facility] 03-30-2024 Instructions Imelda High RN - 03/30/2024 12:17 PM EST The following instructions are important for you related to your office visit today with the [facility] General Surgeons. Instructions After I & D We sent an antibiotic to your pharmacy. You are instructed to remove packing tomorrow. If the dressing becomes soaked or had significant drainage, the dressing should be changed. If there is minor bleeding from this skin edge, you should hold pressure on the incision. If there is continued bleeding, you should contact our office immediately. Wash the wound with gentle soap and water. You may shower. The wound should not be immersed in a pool, bathtub, or even hot tub. If the wound shows signs of redness, inflammation, or purulent drainage, you should contact our office immediately. If you note any additional difficulties, questions, or concerns, you should contact our office immediately @ [phone] and ask to be transferred to the General Surgery department. documented in this encounter [facility] 03-30-2024 Note HNO ID: [id number] Author: IMELDA HIGH RN Service: ? Author Type: Registered Nurse Type: Procedures Filed: 03/31/2024 07:04 Note Text: UNIVERSAL PROTOCOL / SAFETY CHECKLIST Procedure to be Performed: Incision and drainage of perirectal abscess Sign In: A Moment of CARE was completed. Personnel directly involved with the procedure wore the appropriate PPE (Personal Protective Equipment). No special equipment needed. Patient/Surrogate Stated/Verified: PATIENT VERIFIED(optional for EMERGENT procedures): Patient name, Date of , Relevant allergies, and The intended procedure Time Out Communication: Intended patient and procedure match the source documents. Consent documented and matches the intended procedure. No relevant labs, photos, and/or imaging studies were applicable for review. Correct side/site marked and visible. Medications required for procedure verified. No fire risk assessment and interventions applicable. No implant(s) inserted. Sign Out: SIGN OUT (optional for EMERGENT procedures): No specimen collected. All instruments, equipment, possible retained foreign bodies accounted for. Post-procedure follow-up management communicated and Plan of Care Visit completed when applicable. Imelda High RN [facility] 03-30-2024 Procedure note UNIVERSAL PROTOCOL / SAFETY CHECKLIST Procedure to be Performed: Incision and drainage of perirectal abscess Sign In: A Moment of CARE was completed. Personnel directly involved with the procedure wore the appropriate PPE (Personal Protective Equipment). No special equipment needed. Patient/Surrogate Stated/Verified: PATIENT VERIFIED(optional for EMERGENT procedures): Patient name, Date of , Relevant allergies, and The intended procedure Time Out Communication: Intended patient and procedure match the source documents. Consent documented and matches the intended procedure. No relevant labs, photos, and/or imaging studies were applicable for review. Correct side/site marked and visible. Medications required for procedure verified. No fire risk assessment and interventions applicable. No implant(s) inserted. Sign Out: SIGN OUT (optional for EMERGENT procedures): No specimen collected. All instruments, equipment, possible retained foreign bodies accounted for. Post-procedure follow-up management communicated and Plan of Care Visit completed when applicable. Imelda High RN [facility] 03-30-2024 Procedure note UNIVERSAL PROTOCOL / SAFETY CHECKLIST Procedure to be Performed: Incision and drainage of perirectal abscess Sign In: A Moment of CARE was completed. Personnel directly involved with the procedure wore the appropriate PPE (Personal Protective Equipment). No special equipment needed. Patient/Surrogate Stated/Verified: PATIENT VERIFIED(optional for EMERGENT procedures): Patient name, Date of , Relevant allergies, and The intended procedure Time Out Communication: Intended patient and procedure match the source documents. Consent documented and matches the intended procedure. No relevant labs, photos, and/or imaging studies were applicable for review. Correct side/site marked and visible. Medications required for procedure verified. No fire risk assessment and interventions applicable. No implant(s) inserted. Sign Out: SIGN OUT (optional for EMERGENT procedures): No specimen collected. All instruments, equipment, possible retained foreign bodies accounted for. Post-procedure follow-up management communicated and Plan of Care Visit completed when applicable. Imelda High RN documented in this encounter [facility] 03-30-2024 Note HNO ID: [id number] Author: LUKASZ GARCIA MA Service: ? Author Type: Production Clerks Supervisor Type: Progress Notes Filed: 03/31/2024 07:04 Note Text: REVIEW OF SYSTEMS: General: The patient denies fatigue, denies weight loss, denies weight gain, denies feeling hot, and denies feelings of cold. Eyes: The patient denies glaucoma, denies eye injury/surgery, wears glasses or contacts. Ear/Nose/Throat: The patient denies allergies, denies hayfever, denies ear infections, and denies bloody noses. Cardiovascular: The patient denies chest pain, denies heart disease, denies high blood pressure,denies cardiac stent, denies prior heart attack, denies irregular heart beat, denies high cholesterol, denies poor circulation, denies heart failure, other cardiac issues, NOTES claudication, denies cold feet, denies peripheral arterial stent. Respiratory: The patient denies tuberculosis, denies pneumonia, denies frequent cough, denies pulmonary embolism, NOTES shortness of breath, and denies coughing up blood. Gastrointestinal: The patient denies difficulty swallowing, denies acid reflux, denies ulcers, denies vomiting, denies jaundice/hepatitis, denies gallbladder problems, denies black or tarry stools, denies hemorrhoids, denies bleeding from rectum, denies diverticulitis, NOTES constipation, denies diarrhea, denies loss of stool [...] diseases. Musculoskeletal: The patient denies back pain/injury, denies back problems, denies sciatica, denies knee/foot trouble, denies arthritis, or denies gout. When was patient's last Mammogram screening? N/A Last Colonoscopy: N/A Lukasz Garcia MA [facility] 01-14-2023 History of Present illness Narrative Images from the original note [...] history is provided by the patient. No powerhouse engineer was used. Review of Systems Constitutional: Negative. [...] Roshni Ayers APRN.RIOS documented in this encounter [facility] 09-25-2021 History of Present illness Narrative HISTORY AND PHYSICAL [place] Chandlermarialuisa 1945 REFERRING PHYSICIAN: Wero Porter, * CHIEF COMPLAINT: Consult (thyroid nodules) HPI: The patient is a 75 year old male with a complaint of a left thyroid nodule. This thyroid nodule was found on Ultrasound by [facility]. The patient denies pain, denies difficulty swallowing, [...] entered by the nurse and reviewed by il Nursing Notes: Imelda High RN 09/25/2021 9:34 AM Signed REVIEW OF [...] patient's last Mammogram screening? Last Colonoscopy: 2019 Imelda High RN PHYSICAL EXAMINATION: General: The patient is 75 year old male, well nourished, well hydrated in no acute distress. The patient is oriented to time, place, and person. VITALS: Blood pressure 136/78, pulse 105, temperature 36.6 C (97.9 F), height 170.2 cm (5' 7), weight 93.5 kg (206 lb 3.2 oz), [...] Riggs III, MD documented in this encounter [facility] 09-25-2021 Nurse Note REVIEW OF SYSTEMS: General: [...] was patient's last Mammogram screening? Last Colonoscopy: 2018 Imelda High RN documented in this encounter [facility] 05-12-2007 History of Past i llness Narrative Problem Noted Date Resolved Date Special screening for malignant neoplasms, colon 05/12/2007 10/09/2009 Sebaceous cyst 05/12/2007 10/09/2009 documented as of this encounter (statuses as of 09/25/2021) [facility] History of Past illness Narrative* Problem Noted Date Diagnosed Date Resolved Date Special screening for malign ant neoplasms, colon 05/12/2007 10/09/2009 Sebaceous cyst 05/12/2007 10/09/2009 documented as of this encounter (statuses as of 01/15/2023) [facility] noteNo assessment information availableWSelect [facility] Work Phone: Evaluation note* Diagnosis Multinodular goiter- Primary Nontoxic multinodular goiter documented in this encounter [facility] note* Diagnosis Bacterial pneumonia- Primary Bacterial pneumonia, unspecified documented in this encounter [facility] note* Diagnosis Anal abscess- Primary Abscess of anal and rectal regions Perirectal abscess Abscess of anal and rectal regions documented in this encounter [facility] note* Diagnosis Anal abscess- Primary Abscess of anal and rectal regions Perirectal abscess Abscess of anal and rectal regions documented in this encounter [facility] note* Diagnosis Otorrhea of left ear- Primary Otorrhea, unspecified documented in this encounter [facility] for referral (narrative)No reason for referral information availableWSelect [facility] Work Phone: Summary Purpose Family History No Family History Records FoundNo Family History Records FoundNo Family History Records Found Advance Directives No Advanced Directives Records Found Advance Directive Response Recorded Date/ Time Living Will Yes January 20 1:34pm Power of Ip Architect Yes January 20 1:34pm Advance Directive Response Recorded Date/ Time Living Will No January 12, 2023 1:56pm Power of Ip Architect No December 1:56pm Advance Directive Response Recorded Date/ Time Living Will No January 12, 2023 2:56pm Power of Ip Architect No December 2:56pm Chief Complaint and Reason for Visit Chief Complaint NODULE Chief Complaint EORDER Chief Complaint EORDER EORDER Chief Complaint EORDER ELEVATED PSA Chief Complaint ELEVATED PSA sob EORDER Chief Complaint EORDER PSA- 6 MONTHS- Chief Complaint PSA- 6 MONTHS- Chief Complaint Admit Date EORDER March 20, 2024 1 0:22am Chief Complaint Admit Date EORDERS July 25, 2024 10:4 4am Chief Complaint Admit Date EORDERS July 25, 2024 10:4 4am cough, shortness of breath August 27 2:48pm Additional Source Comments (unrecognized sect ion and content) No Status Records FoundNo Status Records FoundNo Status Records Found INFORMATION SOURCE (unrecogn ized section and content) DATE CREATED AUTHOR 10/03/2017 [facility] DATE CREATED AUTHOR AUTHOR'S ORGANIZ ATION 05/19/2024 [facility] DATE CREATED AUTHOR AUTHOR'S ORGANIZ ATION 10/07/2024 [facility] Goals (unrecognized section and content) Goals may be documented in a n alternate sectionGoals may be documented in an alternate sectionGoals may be documented in an alternate sectionGoals may be documented in an alternate sectionGoals may be documented in an alternate sectionGoals may be documented in an alternate sectionGoals may be documented in an alternate sectionGoals may be documented in an alternate sectionGoals may be documented in an alternate sectionGoals may be documented in an alternate sectionGoals may be documented in an alternate sectionGoals may be documented in an alternate sectionGoals may be documented in an alternate sectionGoals may be documented in an alternate sectionGoals may be documented in an alternate sectionGoals may be documented in an alternate section Source Comments (unrecognize d section and content) In the event this informatio n is protected by the Federal Confidentiality of Alcohol and Drug Abuse Patient Records regulations: The Federal rules restrict any use of the information to criminally investigate or prosecute any alcohol or drug abuse patient.[facility] the event this information is protected by the Federal Confidentiality of Alcohol and Drug Abuse Patient Records regulations: The Federal rules restrict any use of the information to criminally investigate or prosecute any alcohol or drug abuse patient.[facility] the event this information is protected by the Federal Confidentiality of Alcohol and Drug Abuse Patient Records regulations: The Federal rules restrict any use of the information to criminally investigate or prosecute any alcohol or drug abuse patient.[facility] the event this information is protected by the Federal Confidentiality of Alcohol and Drug Abuse Patient Records regulations: The Federal rules restrict any use of the information to criminally investigate or prosecute any alcohol or drug abuse patient.[facility] Hospital[facility] the event this information is protected by the Federal Confidentiality of Alcohol and Drug Abuse Patient Records regulations: The Federal rules restrict any use of the information to criminally investigate or prosecute any alcohol or drug abuse patient.[facility] Reason for Visit (unrecogniz ed section and content) Reason Comments Consult thyroid nodules Reason Comments Left Lower Extremity Pain On levaquin an d is having burning and pressure in LLE x x 1 day Reason Comments Consult Procedure Incision and drainag e of perirectal abscess Reason Comments Follow Up Reason Comments Ear Problem L ear pain and drain age x2 weeks Care Teams (unrecognized sec tion and content) Entertainment Reporter Relationship Specialty Start Date End Date Wero Porter [address] [facility] [address] [place], [place] [id number] PCP - General Family Practice 09/22/21 Team Status: Active Member Role Status Dates Johann Moore Family Provider Active Dr. Wero Porter MD Primary Care Provider Active Team Status: Inactive Member Role Status Dates Dr. Wero Porter MD Primary Care Pr ovider, Attending Provider, Referring Provider Active Team Status: Inactive Member Role Status Dates Dr. Wero Porter MD Primary Care Provider Active JUNIOR Mayer Attending Provider, Referring Pr ovider Active Team Status: Inactive Member Role Status Dates Dr. Wero Porter MD Primary Care Provider Active JUNIOR Mayer Attending Provider Active Team Status: Inactive Member Role Status Dates Dr. Wero Porter MD Primary Care Provider, Attend ing Provider Active Dr. Milo Hubbard MD Other Provider Active Team Status: Inactive Member Role Status Dates Dr. Wero Porter MD Primary Care Provider Active Dr. Milo Hubbard MD Attending Provider, Referr ing Provider Active Entertainment Reporter Relationship Specialty Start Date End Date Wero Porter MD [address] [facility] [address] [place] [address] PCP - General Family Medicine 09/22/21 Team Status: Inactive Member Role Status Dates Dr. Wero Porter MD Primary Care Provider Active Dr. Darius Petersen MD Attending Provider, Emergency Provider Active Team Status: Inactive Member Role Status Dates Dr. Wero Porter MD Primary Care Provider, Attend ing Provider Active Entertainment Reporter Relationship Specialty Start Date End Date Wero Porter MD [address] [place] [address] PCP - General Family Medicine 09/22/21 Entertainment Reporter Relationship Specialty Start Date End Date Wero Porter MD [address] [place] [address] PCP - General Family Medicine 09/22/21 Entertainment Reporter Relationship Specialty Start Date End Date Wero Porter MD [address] [place], [place] [address] PCP - General Family Medicine 09/22/21 Team Status: Inactive Member Role Status Dates Dr. Wero Porter MD Primary Care Provider Active Start: March 20, 2024 End: March 20, 2024 Dr. Wero Porter MD Attending Provider Active Start: March 20, 2024 End: March 20, 2024 Dr. Wero Porter MD Referring Provider Active Start: March 20, 2024 End: March 20, 2024 Team Status: Inactive Member Role Status Dates Dr. Wero Porter MD Primary Care Provider Active Start: June 21, 2024 End: June 21, 2024 Arlet Duff Attending Provider Active Start : June 21, 2024 End: June 21, 2024 Team Status: Inactive Member Role Status Dates Dr. Wero Porter MD Primary Care Provider Active Start: July 25, 2024 End: July 25, 2024 Dr. Wero Porter MD Attending Provider Active Start: July 25, 2024 End: July 25, 2024 Dr. Wero Porter MD Referring Provider Active Start: July 25, 2024 End: July 25, 2024 Team Status: Inactive Member Role Status Dates Dr. Wero Porter MD Primary Care Provider Active Start: August 27, 2024 End: August 27, 2024 JUNIOR Steiner NP Attending Provider Active S tart: August 27, 2024 End: August 27, 2024 JUNIOR Steiner NP Referring Provider Active S tart: August 27, 2024 End: August 27, 2024 FOR RECORDS PERTAINING TO PATIENTS WHO ARE [...] BE BASED ON THE PRIMARY CLINICAL RECORDS. [facility] [employer] provides no warranty or guarantee of the accuracy or completeness of information in this document.
[2024-12-07 10:13] LABS: Hematocrit 37.4 % (40-54); Hemoglobin 12.7 g/dL (13.0-16.5); Immature Granulocytes Count 0.020 X10^3/uL (0.0-0.0); Mean Corp Hgb Conc 34.0 g/dL (32-36); Mean Corpuscular Volume 88.4 fL (80-94); Mean Platelet Vol. 10.1 fl (6.2-12.0); NRBC Flagged by Analyzer 0 % (0-5); Platelet Count 243 K/mm3 (150-450); RBC Distribution Width CV 12.6 % (11.6-14.6); RBC Distribution Width SD 40.8 fl (35.1-43.9); Red Blood Count 4.23 M/mm3 (4.6-6.2); White Blood Count 7.7 K/mm3 (4.4-11.0)
[2024-12-07 10:37] LABS: AST(SGOT) 19 U/L (<=37); Alanine Aminotransfer ALT/SGPT 18 U/L (<=46); Albumin, Serum 4.5 g/dL (3.4-4.8); Alkaline Phosphatase 47 U/L (40-129); Anion Gap 14 (5-15); BUN 13 mg/dL (4-19); BUN/Creat Ratio 17.8 RATIO (10-20); Calcium,Total 9.9 mg/dL (7.6-11.0); Carbon Dioxide 24.7 mmol/L (21.0-32.0); Chloride 91 mmol/L (98-108); Cholesterol 126 mg/dL (<=200); Creatinine, Urine (random) 34.10 mg/dL (39.00-259.00); Globulin 2.9 g/dL (2.2-4.2); Glucose 139 mg/dL (70-99); Low Density Lipoprotein Calc. 48 mg/dL; Microalbumin,Random Urine < 12.0 mg/L (<20 mg/L); Potassium 4.0 mmol/L (3.3-5.1); Triglycerides 154 mg/dL; Very Low Density Lipoprotein 31 mg/dL (5-40); cholesterol:hdl ratio screen 2.66
[2024-12-07 19:30] LABS: Ferritin 121 ng/mL (37-417); Iron 96 ug/dL (65-175); Iron Binding Capacity,Total 365 ug/dL (250-450); Iron Binding Capacity,Unsat 269 ug/dL (228-428); Vitamin B12 300 pg/mL (180-914)
== END | disposition home or self-care (01) ==
LOC: MTLAB 07:02
PROVIDERS: PCP Family Medicine; Referring Provider Family Medicine; Visit Provider Family Medicine
DX: D64.9 Anemia, unspecified (principal); E11.8 Type 2 diabetes mellitus with unspecified complications
CPT/HCPCS: 36415; 80053; 80061; 82043; 82570; 82607; 82728; 83036; 83540; 83550; 85025

== ENCOUNTER → 2024-12-18 | Outpatient (CLI) | payer MEDICARE, SELFPAY ==
[2024-12-18 13:07] LABS: Anion Gap 12 (5-15); BUN 11 mg/dL (4-19); BUN/Creat Ratio 16.1 RATIO (10-20); Calcium,Total 9.4 mg/dL (7.6-11.0); Carbon Dioxide 25.8 mmol/L (21.0-32.0); Chloride 95 mmol/L (98-108); Glucose 134 mg/dL (70-99); Potassium 3.9 mmol/L (3.3-5.1)
[2024-12-18 13:08] LABS: Osmolality, Serum 285 mOsm/KG (280-301); Osmolality, Urine 297 mOsm/KG
== END | disposition home or self-care (01) ==
LOC: MFPLAB 08:32
PROVIDERS: PCP Family Medicine; Referring Provider Family Medicine; Visit Provider Family Medicine
DX: E87.1 Hypo-osmolality and hyponatremia (principal)
CPT/HCPCS: 36415; 80048; 82436; 83930; 83935; 84133; 84300

== ENCOUNTER → 2025-01-02 | Outpatient (CLI) | payer MEDICARE, SELFPAY ==
--- NOTE | 2025-01-02 08:48 | ART_ITS ---
Reason For Study Reason For Study: Claudication Procedure A bilateral lower extremity continuous wave Doppler with analog waveform analysis,segmental pressures,and ankle brachial indexes without exercise. Left Segmental Pressures Left brachial= 133mmHg. Left posterior tibial artery = 149mmHg. Left dorsalis pedis artery = 181mmHg. Left digit = 114 mmHg. The left dorsalis pedis waveforms are triphasic. The left posterior tibial artery waveforms are triphasic. Right Segmental Pressures Right brachial= 129mmHg. Right posterior tibial artery = 187mmHg. Right dorsalis pedis artery = >254mmHg. Right digit = 116 mmHg. The right dorsalis pedis waveforms are triphasic. The right posterior tibial artery waveforms are triphasic. Indices The right ankle brachial index by the dorsalis pedis is NC. The right ankle brachial index by the posterior tibial artery is 1.41. The right digital-brachial index is 0.87. The left ankle brachial index by the dorsalis pedis is 1.36. The left ankle brachial index by the posterior tibial artery is 1.12. The left digital-brachial index is 0.86. VL/Lower Ext Art Exam w/o Exercis Interpretation Summary Triphasic Doppler waveforms are noted at ankle level bilaterally. Pulse-volume recordings appear satisfactory at all levels bilaterally.The resting right ankle-brachial index is supra-normal. The resting left ankle-brachial index is normal. Digital-brachial indices are normal bilaterally. There is evidence of arterial calcification at ankle level on the right. There is no evidence of significant arterial occlusive disease in the lower extremities bilaterally. Ordering Physician: Esperanza^Aj^Kenn^^ Referring Physician: Aj Mata Performed By: Leann Felxi and Student, RVT
== END | disposition home or self-care (01) ==
LOC: CVS 08:46
PROVIDERS: PCP Family Medicine; Referring Provider Family Medicine; Visit Provider Family Medicine
DX: I73.9 Peripheral vascular disease, unspecified (principal)
CPT/HCPCS: 93923